=== PATIENT | male | born 1965 | race Caucasian/White ===

== ENCOUNTER 2017-11-13 05:55 | Emergency (ER) | payer OTHER, SELFPAY ==
[2017-11-13 06:03] VITALS: BP 129/97; PULSE 79; RESP 16; TEMP 36.8; O2SAT 97
--- NOTE | 2017-11-13 06:27 | W.ED.GENAD ---
Discharge Plan Disposition Patient Disposition: HOME Condition: Stable Discharge Details Chief Complaint: EyeProblem Clinical Impression: Corneal ulcer of right eye Primary Care Provider: Jay Campos ED Provider: Te Joel Home Meds and New Rx's Prescriptions: No Action No Known Home Meds RF: 0 Discharge Instructions Instructions: Corneal Ulcer (ED) Additional Instructions: Please apply the Gentamycin medication to your eye 6 times per day. Do not put your contact lenses back in. Please see her bender helper this morning. Please call them promptly at 8 AM and state I wear contacts, the ER doctor says I have a corneal ulcer and need to be seen right away. If you notice any worsening of your vision, any worsening pain, please return immediately for reevaluation. Please take Tylenol and Motrin for any pain. If you notice any worsening of your symptoms, or any new symptoms such as vomiting, diarrhea, fever, chills, shortness of breath, chest pain, numbness, weakness, or fainting , please return immediately to the emergency department for reevaluation. Please follow up with your appetite as soon as possible for reassessment and reevaluation. As always, it was a pleasure participating in your medical care today. Referrals: [facility] [OTHER] - Medical Decision Making This is a 52-year-old male who presents with right eye pain. He is a contact lens wearer. Physical exam demonstrates a small ulcer on his right cornea at the 9 o'clock position. No dendritic lesion. No Ochoa sign, no signs of shingles. No signs of rust ring, positive Tripp sign, or foreign body. I feel that he has a corneal ulcer secondary to his contact lens use. The patient does see Dr. ruiz regularly. He has no red flags of diabetes, steroid use, or immunocompromise. We will keep his lenses out, give him gentamicin ointment, and have him follow-up with his bender helper this morning in the next 3-4 hours. We discussed red flags for which to return and the vital importance for close follow-up and the patient understands. I have extensively reviewed the treatment plan and discharge instructions with the patient. I have addressed all patient concerns at this time. The patient was made aware of what symptoms to monitor for that would warrant a return to the emergency department. Discussed the plan with the patient, they demonstrate verbal understanding and agreement with our assessment and plan at this time. HPI General Date/Time Provider Initiated Documentation: 11/13/17 06:24. HPI Narrative: This is a 52-year-old male with no medical problems except for contact lens use who presents today for right eye pain. He states that last night he had some aching and tearing in his eye, this morning when he woke up he was continually worse. It was slightly improved with putting his contact back in. He denies any objects on personal examination, he denies any welding, he does not work with any metal or grinding products. He does not remember any traumatic inciting event. He denies any worsening of his vision. He denies any other complaints at this time. He denies IV or illicit drug use, recent surgeries, or pertinent family history. Related Data Home Medications Medication Instructions Recorded Confirmed Unknown [No Known Home Meds] 03/03/17 11/13/17 Allergies Allergy/AdvReac Type Severity Reaction Status Date / Time silver sulfadiazine Allergy Skin Rash Unverified 11/13/17 06:11 General Stated Complaint: EyeProblem DUDLEY: 4 Review of Systems Review of Systems All systems reviewed & are unremarkable except as noted in HPI and below PFSH Social History Smoking/Tobacco Use Status: Current every day Exam Narrative Exam Narrative: 1.Const: Well-nourished, Well-developed, appearing stated age 2.Eyes: PERRL, notable conjunctival injection on the right eye 3.ENT: Atraumatic external nose and ears. Moist MM. Neck: Symmetric, trachea midline, No thyromegaly. EOMI, PERRL, Peripheral vision intact. No nystagmus. No external signs of preseptal cellulitis, no redness around the eye, no proptosis. No hyphema, no signs of trauma around the eye, no periorbital emphysema. Patient demonstrates notable conjunctival injection on the right eye. Vision is 20/30 in his right eye and left eye with contact lenses. Patient describes horrible vision in both eyes without contacts. Fluorescein staining does demonstrate evidence of corneal ulcer at the 9 o'clock position on his right eye. It is small. No dendritic lesion. No evidence of foreign body, or rust ring. Eversion of the lid demonstrates no signs of foreign body. Negative Tripp sign. No haziness on the cornea. 4.CVS: +S1/S2, No murmurs or gallops. Peripheral pulses 2+ and equal in all extremities. Brisk capillary refill in all extremities. 5.RESP: Unlabored respiratory effort. Clear to auscultation bilaterally. 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 Sensation grossly intact, no focal neurologic deficits. Course Vital Signs Temperature 36.8 C 11/13/17 06:03 Pulse 79 11/13/17 06:03 Respiratory Rate 16 11/13/17 06:03 Blood Pressure 129/97 H 11/13/17 06:03 Pulse Oximetry 97 11/13/17 06:03 Temperature 36.8 C 11/13/17 06:03 Temperature Source Temporal Artery Scan 11/13/17 06:03 Pulse 79 11/13/17 06:03 Respiratory Rate 16 11/13/17 06:03 Respiratory Effort 11/13/17 06:03 Blood Pressure 129/97 H 11/13/17 06:03 Pulse Oximetry 97 11/13/17 06:03 Oxygen Delivery Method Room Air 11/13/17 06:03 Oxygen Flow Rate 0 11/13/17 06:03 Pain Level 0 11/13/17 06:03
--- NOTE | 2017-11-13 06:37 | ED.GENADUL_ITS ---
Discharge Plan Disposition Patient Disposition: HOME Condition: Stable Discharge Details Chief Complaint: EyeProblem Clinical Impression: Corneal ulcer of right eye Primary Care Provider: Jay Campos ED Provider: Te Joel Home Meds and New Rx's Prescriptions: No Action No Known Home Meds RF: 0 Discharge Instructions Instructions: Corneal Ulcer (ED) Additional Instructions: Please apply the Gentamycin medication to your eye 6 times per day. Do not put your contact lenses back in. Please see her computer systems manager this morning. Please call them promptly at 8 AM and state I wear contacts, the ER doctor says I have a corneal ulcer and need to be seen right away. If you notice any worsening of your vision, any worsening pain, please return immediately for reevaluation. Please take Tylenol and Motrin for any pain. If you notice any worsening of your symptoms, or any new symptoms such as vomiting, diarrhea, fever, chills, shortness of breath, chest pain, numbness, weakness, or fainting , please return immediately to the emergency department for reevaluation. Please follow up with your appetite as soon as possible for reassessment and reevaluation. As always, it was a pleasure participating in your medical care today. Referrals: [facility] [[facility]] - Medical Decision Making This is a 52-year-old male who presents with right eye pain. He is a contact lens wearer. Physical exam demonstrates a small ulcer on his right cornea at the 9 o'clock position. No dendritic lesion. No Ochoa sign, no signs of shingles. No signs of rust ring, positive Tripp sign, or foreign body. I feel that he has a corneal ulcer secondary to his contact lens use. The patient does see Dr. ruiz regularly. He has no red flags of diabetes, steroid use, or immunocompromise. We will keep his lenses out, give him gentamicin ointment, and have him follow-up with his computer systems manager this morning in the next 3-4 hours. We discussed red flags for which to return and the vital importance for close follow-up and the patient understands. I have extensively reviewed the treatment plan and discharge instructions with the patient. I have addressed all patient concerns at this time. The patient was made aware of what symptoms to monitor for that would warrant a return to the emergency department. Discussed the plan with the patient, they demonstrate verbal understanding and agreement with our assessment and plan at this time. HPI General Date/Time Provider Initiated Documentation: 11/13/17 06:24 . HPI Narrative: This is a 52-year-old male with no medical problems except for contact lens use who presents today for right eye pain. He states that last night he had some aching and tearing in his eye, this morning when he woke up he was continually worse. It was slightly improved with putting his contact back in. He denies any objects on personal examination, he denies any welding, he does not work with any metal or grinding products. He does not remember any traumatic inciting event. He denies any worsening of his vision. He denies any other complaints at this time. He denies IV or illicit drug use, recent surgeries, or pertinent family history. Related Data Home Medications Medication Instructions Recorded Confirmed Unknown [No Known Home Meds] 03/03/17 11/13/17 Allergies Allergy/AdvReac Type Severity Reaction Status Date / Time silver sulfadiazine Allergy Skin Rash Unverified 11/13/17 06:11 General Stated Complaint: EyeProblem DUDLEY: 4 Review of Systems Review of Systems All systems reviewed & are unremarkable except as noted in HPI and below PFSH Social History Smoking/Tobacco Use Status: Current every day Exam Narrative Exam Narrative: 1.Const: Well-nourished, Well-developed, appearing stated age 2.Eyes: PERRL, notable conjunctival injection on the right eye 3.ENT: Atraumatic external nose and ears. Moist MM. Neck: Symmetric, trachea midline, No thyromegaly. EOMI, PERRL, Peripheral vision intact. No nystagmus. No external signs of preseptal cellulitis, no redness around the eye, no proptosis. No hyphema, no signs of trauma around the eye, no periorbital emphysema. Patient demonstrates notable conjunctival injection on the right eye. Vision is 20/30 in his right eye and left eye with contact lenses. Patient describes horrible vision in both eyes without contacts. Fluorescein staining does demonstrate evidence of corneal ulcer at the 9 o'clock position on his right eye. It is small. No dendritic lesion. No evidence of foreign body, or rust ring. Eversion of the lid demonstrates no signs of foreign body. Negative Tripp sign. No haziness on the cornea. 4.CVS: +S1/S2, No murmurs or gallops. Peripheral pulses 2+ and equal in all extremities. Brisk capillary refill in all extremities. 5.RESP: Unlabored respiratory effort. Clear to auscultation bilaterally. No wheezes rales or rhonchi Neuro: assistant editor II-XII grossly intact. Sensation grossly intact, no focal neurologic deficits. Course Vital Signs Temperature 36.8 C 11/13/17 06:03 Pulse 79 11/13/17 06:03 Respiratory Rate 16 11/13/17 06:03 Blood Pressure 129/97 H 11/13/17 06:03 Pulse Oximetry 97 11/13/17 06:03 Temperature 36.8 C 11/13/17 06:03 Temperature Source Temporal Artery Scan 11/13/17 06:03 Pulse 79 11/13/17 06:03 Respiratory Rate 16 11/13/17 06:03 Respiratory Effort 11/13/17 06:03 Blood Pressure 129/97 H 11/13/17 06:03 Pulse Oximetry 97 11/13/17 06:03 Oxygen Delivery Method Room Air 11/13/17 06:03 Oxygen Flow Rate 0 11/13/17 06:03 Pain Level 0 11/13/17 06:03
--- NOTE | 2017-11-13 08:58 | CMPROGNOTE_ITS ---
Care Management Progress Note 11/13/17-Pt seen today for Right eye Cornea ulcer by Dr. Avelino Joel. Referral and notes faxed to [facility]. Pt has an appt. this morning at 9: 40am.
== END 2017-11-13 06:59 | disposition home or self-care (01) ==
PROVIDERS: Emergency Provider Student in an Organized Health Care Education/Training Program; PCP Specialist/Technologist Athletic Trainer
DX: H16.001 Unspecified corneal ulcer, right eye (principal); H18.821 Corneal disorder due to contact lens, right eye
CPT/HCPCS: 99283

== ENCOUNTER 2018-04-28 00:56 | Outpatient (CLI) | payer OTHER, SELFPAY ==
[2018-04-28 14:45] LABS: CREATININE 0.93 mg/dL (0.70-1.30)
--- NOTE | 2018-04-28 15:30 | DI.CT_ITS ---
SYMPTOM/DIAGNOSIS: HEAD AND NECK METASTASIS, ASSESS FOR DISEASE RECURRENCE C76.0 CT NECK: CT scan of the neck was performed following the uneventful administration of intravenous contrast material. Comparison examinations are 07/12/15, 02/11/17 and 07/14/17. There is no evidence of a residual or recurrent mass in the left posterior triangle. The orbits and retro-orbital soft tissues are unremarkable. Mucous retention cysts or polyps are seen in the maxillary sinuses. The remaining visualized paranasal sinuses are clear. The parotid and submandibular glands are unremarkable. The oral pharynx, hypopharynx, nasopharynx and larynx are unremarkable. The thyroid gland is unremarkable. No significant cervical adenopathy is present. Degenerative changes are seen in the spine particularly at the C4-5 and C5-6 levels. IMPRESSION: No evidence of residual or recurrent neck mass. No significant cervical adenopathy
--- NOTE | 2018-04-28 15:30 | DI.CT_ITS ---
SYMPTOM/DIAGNOSIS: HEAD & NECK CA, ASSESS FOR DISEASE C76.0 CT CHEST: CT scan of the chest was performed following the uneventful administration of intravenous contrast material. Comparison is 07/14/17. The visualized thyroid gland is unremarkable. The thoracic aorta is of normal caliber. Heart size is within normal limits. No significant pericardial effusion seen. Mild coronary artery calcifications are present. No significant thoracic adenopathy or pleural effusion is seen. No pneumothorax is identified. No pulmonary nodules are seen. Dependent atelectatic changes are seen. No focal consolidating infiltrates are seen in the lungs. The tracheobronchial tree is unremarkable. Degenerative changes are seen in the spine. No aggressive osseous lesions are seen. IMPRESSION: No evidence of thoracic metastatic disease.
[2018-04-28] MEDS: Omnipaque 350 MG/ML 100 ML BTL IJ (15:39)
== END 2018-04-28 01:16 ==
PROVIDERS: PCP Specialist/Technologist Athletic Trainer; Visit Provider Nurse Practitioner
DX: R22.1 Localized swelling, mass and lump, neck (principal); C76.0 Malignant neoplasm of head, face and neck; Z12.89 Encounter for screening for malignant neoplasm of other sites
CPT/HCPCS: 70491; 71260; 82565; J3490

== ENCOUNTER 2018-06-14 06:04 | Emergency (ER) | payer OTHER, SELFPAY ==
[2018-06-14 06:14] VITALS: BP 127/82; PULSE 82; RESP 20; TEMP 37; O2SAT 98
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
--- NOTE | 2018-06-14 11:10 | NUR.NOTE ---
Addendum entered by Huyen Herrera 06/14/18 16:22: Patient did call back around 1215 and he is going to contact the PCP that he wants to go to, not the one on for telephone call for the ED. If he need assistance he will call back. Huyen Herrera. Original Note: Nursing Note: Called and left a message with patient that if he needed help with an appt. to call the ED. Huyen Herrera.
== END 2018-06-14 06:45 | disposition home or self-care (01) ==
LOC: ER 06:45
PROVIDERS: Emergency Provider Physician Assistant; PCP Specialist/Technologist Athletic Trainer
DX: M77.8 Other enthesopathies, not elsewhere classified (principal); M67.431 Ganglion, right wrist; R60.0 Localized edema
CPT/HCPCS: 29125; 99283; L3908

== ENCOUNTER 2018-07-21 14:03 | Outpatient (CLI) | payer OTHER, SELFPAY ==
--- NOTE | 2018-07-21 13:57 | DI.RAD_ITS ---
SYMPTOMS/DIAGNOSIS: RIGHT WRIST PAIN AND CYST RIGHT WRIST: Three views. No priors. No acute fracture or dislocation is seen. There is marked narrowing of the radiocarpal joint with subchondral sclerosis and spurring present. There is a tiny osseous density interposed between the lunate and scaphoid, which may represent an old fracture fragment. The site of origin is indeterminate. There are also mild degenerative changes seen at the articulation between the scaphoid and the trapezium and the 1st carpometacarpal joint. No suspicious lytic or sclerotic lesions are seen. On the lateral view, there is a well-corticated osseous density at the dorsum of the wrist suggesting old injury. IMPRESSION: Chronic changes seen of the right wrist, particularly at the radiocarpal joint. If further characterization of the right wrist is needed, a CT scan may be considered for further evaluation.
== END 2018-07-21 14:23 ==
PROVIDERS: PCP Specialist/Technologist Athletic Trainer; Visit Provider Student in an Organized Health Care Education/Training Program
DX: M25.531 Pain in right wrist (principal); M24.831 Other specific joint derangements of right wrist, not elsewhere classified
CPT/HCPCS: 73110

== ENCOUNTER 2018-12-01 14:14 | Outpatient (CLI) | payer OTHER, SELFPAY ==
[2018-12-01 15:54] LABS: CREATININE 0.89 mg/dL (0.70-1.30)
== END 2018-12-01 14:34 ==
PROVIDERS: PCP Specialist/Technologist Athletic Trainer; Visit Provider Nurse Practitioner
DX: R22.1 Localized swelling, mass and lump, neck (principal); Z91.89 Other specified personal risk factors, not elsewhere classified
CPT/HCPCS: 36415; 82565; 84443

== ENCOUNTER 2018-12-02 00:19 | Outpatient (CLI) | payer OTHER, SELFPAY ==
--- NOTE | 2018-12-02 14:10 | DI.CT_ITS ---
EXAM: CT NECK CHEST W CLINICAL HISTORY: SKIN CANCER WITH METS TO NECK,TREATED WITH RADIATION TECHNIQUE: Post IV contrast. COMPARISON: NECK AND CHEST WITH CONTRAST from 07/14/2017 CT neck w from 04/28/2018 FINDINGS: Neck CT: Postsurgical changes are noted on the left side of the neck. There is no evidence of of a current ma ss or adenopathy. The parotid, submandibular and thyroid glands are unremarkable. A mucous retentio n cyst is noted the floor of the right maxillary sinus. The orbits are unremarkable. The visualized portions of brain are grossly normal. Degenerative changes seen in the spine. No suspicious bony l esions are identified. There is no evidence of significant vascular stenosis. Impression: Postsurgical changes on the left side of the neck. No evidence of recurrent mass or chichi opathy. Chest CT: The lungs are clear. No pulmonary nodules, infiltrates or effusions are seen. The heart size is nor mal. No adenopathy is seen. There is mild bilateral symmetric gynecomastia. The visualized portion s of the upper abdominal organs are unremarkable. No suspicious bony lesions are seen. Impression: No evidence of metastatic disease in the chest. IMPRESSION:
[2018-12-02] MEDS: Omnipaque 350 MG/ML 100 ML BTL IJ (14:46)
== END 2018-12-02 00:39 ==
PROVIDERS: PCP Specialist/Technologist Athletic Trainer; Visit Provider Nurse Practitioner
DX: C44.42 Squamous cell carcinoma of skin of scalp and neck (principal); C76.0 Malignant neoplasm of head, face and neck; Z92.3 Personal history of irradiation; J34.1 Cyst and mucocele of nose and nasal sinus
CPT/HCPCS: 70491; 71260; J3490

== ENCOUNTER 2021-06-13 12:23 | Outpatient (REF) | payer OTHER, SELFPAY ==
[2021-06-14 11:39] LABS: COVID-19 RT-PCR UVMMC Result Negative (Negative)
== END 2021-06-13 12:24 | disposition home or self-care (01) ==
LOC: NCHCN 12:23
PROVIDERS: PCP Specialist/Technologist Athletic Trainer; Visit Provider Physician Assistant Medical
DX: Z20.822 Contact with and (suspected) exposure to COVID-19 (principal); J02.9 Acute pharyngitis, unspecified
CPT/HCPCS: U0003; 87070

== ENCOUNTER 2021-08-09 06:07 | Inpatient (IN) | payer SELFPAY ==
[2021-08-09] VITALS (7 sets, daily range): BP systolic 121–144; BP diastolic 79–90; PULSE 63–105; RESP 14–20; TEMP 36.4–37.6; O2SAT 93–98
--- NOTE | 2021-08-09 06:30 | RT.EKG_ITS ---
APPROVED REPORT Exam: Resting ECG Reason for Exam: possible syncope Patient Location: E HR:80 bpm ECG Measurements Heart Rate 80 AXIS MI 120 P 69 QRSd 85 QRS -6 QT 392 T 33 QTc 453 Conclusion Sinus rhythm...normal P axis, V-rate 60- 99
--- NOTE | 2021-08-09 06:32 | ED.GENADUL_ITS ---
Discharge Plan Disposition Patient Disposition: STILL A PATIENT Condition: Stable Discharge Details Chief Complaint: GenMedical Clinical Impression: Heroin use, Fall, Syncope Primary Care Provider: Jay Campos ED Provider: Ricardo Kay Medical Decision Making 56 yo male with hx of substance abuse who was on suboxone but has decided to come off of it and to deal with side effects of this use heroin intermittently comes in after he was found in his shower not responding. He is confused on some of the details on this morning, is currently oriented to person place and time with clear speech and clinically sober. HE states he woke up he thinks around 4am and used heroin. He then went into the shower and this is where his friend found him. He slowly came to and was brought here. He states he thinks his right arm was numb for a few seconds when he woke up, then couldn't remember if it was his right or left arm. He denies having weakness, chest pain, changes in speech, and denies alcohol or drug use. He is in no distress on exam. His pupils are pinpoint. No signs of trauma to the head or c spine tenderness. No chest, back or abdomen tenderness. He has no focal deficits and NIH on exam now is 0. Suspect this was heroin overdose but will evaluate for possible cardiac causes for syncope with ekg and troponin. Has no hypoxia, tachycardia or evidence of dvt on exam so doubt PE and no tearing back pain and normal peripheral pulses so doubt dissection. Unclear etiology of his brief numbness in his arm, suspect this could have been from laying on his arm in the shower, less likely tia and no deficits on exam so doubt cva. Given he fell in the shower will obtain ct head pt signed out to oncoming provider pending lab results, delta troponin and ct head. If negative can likely be discharged home and f/u with pcp. Differential Diagnosis Differential Diagnosis: drug overdose, syncope, tia HPI General Mode of arrival: ambulatory . Date/Time Provider Initiated Documentation: 08/09/21 06:08 . Limitations to Documentation: no limitations . Information obtained by: patient . History of Present Illness 56 year old M presents to the emergency department with the chief complaint of woke up in shower, described as moderate, Patient started experiencing this hour(s) (2) and it has been now resolved. No relieving factors improve symptom(s), No exacerbating factors reported . Patient notes denies chest pain and fever/chills. Patient did receive the following treatments prior to arrival, none Related Data Allergies Allergy/AdvReac Type Severity Reaction Status Date / Time silver sulfadiazine Allergy Skin Rash Unverified 08/09/21 06:24 General Stated Complaint: GenMedical DUDLEY: 3 Review of Systems All systems reviewed & are unremarkable except as noted in HPI and below Constitutional Constitutional: Denies chills, Denies fever(s) and Denies weakness Cardiovascular Cardiovascular: Denies chest pain and Denies dyspnea Respiratory Respiratory: Denies cough and Denies dyspnea Gastrointestinal Gastrointestinal: Denies abdominal pain, Denies nausea and Denies vomiting Integumentary/Breasts Skin/Breast: Denies rash Neurologic Neurologic: Denies weakness Psychiatric Psychiatric: Denies depression PFSH All Active Problems (Updated 08/09/21 @ 06:40 by Ricardo Kay MD) Heroin use (Acute) Fall (Acute) Syncope (Chronic) 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) Medical History (Updated 08/09/21 @ 06:40 by Ricardo Kay MD) Squamous cell carcinoma Surgical History (Updated 06/14/18 @ 06:40 by Teressa New DO) S/P skin cancer resection Neck Social History Smoking/Tobacco Use Status: Current every day Smoking risk assessment performed?: Yes Alcohol Intake: current Alcohol Intake frequency: a few times a week Alcohol type: beer Drug use: Daily Substance use type: marijuana and heroin Current gender identity: male Do you feel safe at home: Yes Do you feel safe in your relationship?: Yes Exam Const General: no acute distress Orientation: alert [facility] Head: normal to inspection Ears: external ears normal General nose exam: external nose normal Mouth: moist mucous membranes Eyes Pupils: pinpoint Neck Neck: normal visual inspection Resp Effort & Inspection: normal respiratory effort and able to speak in complete sentences Cardio Rate: regular rate Skin General skin exam: no rashes or lesions noted Neuro General: patient alert and patient oriented x3 Extrem General: normal to inspection Psych Mental Status: mental status grossly normal Course Vital Signs Vital signs: Vital Signs Temperature 36.5 C 08/09/21 06:13 Pulse 105 H 08/09/21 06:13 Respiratory Rate 20 08/09/21 06:13 Blood Pressure 132/86 08/09/21 06:13 Pulse Oximetry 93 08/09/21 06:13 Temperature 36.5 C 08/09/21 06:13 Temperature Source Oral 08/09/21 06:13 Pulse 105 H 08/09/21 06:13 Respiratory Rate 20 08/09/21 06:13 Respiratory Effort 08/09/21 06:23 Blood Pressure 132/86 08/09/21 06:13 Blood Pressure Position Sitting 08/09/21 06:13 Pulse Oximetry 93 08/09/21 06:13 Oxygen Delivery Method Room Air 08/09/21 06:13 Oxygen Flow Rate 0 08/09/21 06:13 Pain Level 0 08/09/21 06:13 PAWSS Have you Been Recently Intoxicated or Drunk Within the Last 30 days?: No Have you Ever Experienced Previous Episodes of Alcohol Withdrawal?: No Have you ever Experienced Withdrawal Seizures?: No Have you ever Experienced Delirium Tremens(DT)s?: No Have you ever undergone Alcohol Rehabilitation Treatment (i.e, inpt ot outpatient treatment programs)?: No Have you ever Experienced Blackouts?: No Have you ever Combined Alcohol with other Downers within the last 90 days?: No Have you ever Combined Alcohol with any other Substance of Abuse during the last 90 days?: No Positive Blood Alcohol level on Presentation? [PCS.BAL]: No Evidence of Increased Autonomic Activity (i.e. HR>120, tremor, sweating, agitation, nausea)?: No Result: 0
[2021-08-09 07:11] LABS: Abs Immature Grans 0.04 10^3/uL (0.0-0.06); Absolute Basophil Count 0.04 10^3/uL (0.0-0.2); Absolute Eosinophil Count 0.16 10^3/uL (0.0-0.7); Absolute Lymphocyte Count 1.61 10^3/uL (1.2-3.4); Absolute Monocyte Count 0.55 10^3/uL (0.1-0.8); Absolute Neutrophil Count 7.44 10^3/uL (1.2-6.7); Basophils % 0.4; Eosinophils % 1.6; HGB 15.8 g/dL (13.5-17.5); Immature Grans % 0.4; Lymphocytes % 16.4; MCH 32.6 pg (27.0-33.0); MCHC 32.9 % (32.0-36.0); MCV 99 fL (80-95); MPV 8.6 fL (8.0-11.0); Monocytes % 5.6; Neutrophils % 75.6; Platelet Count 388 10^3/uL (130-400); RBC 4.84 10^6/uL (4.36-5.78); RDW 11.8 % (11.8-14.1); RDW-SD 43.6 fL; WBC 9.84 10^3/uL (4.4-10.8)
--- NOTE | 2021-08-09 07:28 | DI.CT_ITS ---
Exam(s) CT HEAD WO EXAM: CT HEAD WO CLINICAL HISTORY: fall. TECHNIQUE: Imaging Protocol: Axial computed tomography images with coronal and sagittal reformatted images were created and reviewed COMPARISON: No exams were available for comparison FINDINGS: Ventricles and Extra axial spaces: Normal in size and morphology for the patient's age. Hemorrhage: None. Cerebral parenchyma: There is no evidence of an acute territorial infarct. There is an area of encep halomalacia involving the posterior right parietal lobe suggesting a prior infarct. There are areas of decreased signal in the white matter likely reflecting small vessel ischemic disease. Midline shift: None. Brainstem/Cerebellum: Normal. Calvarium: Normal. Visualized Paranasal sinuses/Mastoids: Mucous retention cysts or polyps are seen in the maxillary sin uses. The visualized paranasal sinuses are otherwise clear. Soft Tissues: Unremarkable. IMPRESSION: No acute intracranial process. RADIATION DOSE DELIVERED: 722.31mGy.cm Total DLP DATA REPOSITORY: All CT scans at this facility are submitted to the National Radiology Data Registry (NRDR) Dose Index Registry (DIR) with the [employer] (ACR). RADIATION OPTIMIZATION: All CT scans at this facility use at least one of these dose optimization te chniques: automated exposure control; mA and/or kV adjustment per patient size (includes targeted exa ms where dose is matched to clinical indication); or iterative reconstruction.
[2021-08-09 07:38] LABS: ALT 112 U/L (16-63); AST 69 U/L (15-37); Alkaline Phosphatase 95 U/L (46-116); Anion Gap 9.9 mmol/L (3-11); BUN 12 mg/dL (7-18); Bilirubin, Total 0.7 mg/dL (0.2-1.0); CO2 25.1 mmol/L (21.0-32.0); CREATININE 1.3 mg/dL (0.70-1.30); Calcium 9.5 mg/dL (8.5-10.1); Chloride 104 mmol/L (98-107); Glucose 126 mg/dL (74-106); Magnesium 2.2 mg/dL (1.8-2.4); Potassium 4.1 mmol/L (3.5-5.1); Sodium 139 mmol/L (136-145); Total Protein 8.6 g/dL (6.4-8.2); Troponin I < 50 ng/L (<or=60)
[2021-08-09 07:48] LABS: ETHANOL BLOOD < 3.0 mg/dL (<10)
--- NOTE | 2021-08-09 07:52 | DI.VRAD_ITS ---
PROCEDURE INFORMATION: Exam: CT Head Without Contrast Exam date and time: 08/09/2021 7:24 AM Age: 56 years old Clinical indication: Stroke-like symptoms TECHNIQUE: Imaging protocol: Computed tomography of the head without contrast. Radiation optimization: All CT scans at this facility use at least one of these dose optimization techniques: automated exposure control; mA and/or kV adjustment per patient size (includes targeted exams where dose is matched to clinical indication); or iterative reconstruction. Other technique: STROKE PROTOCOL was implemented. COMPARISON: CT NECK CHEST W 12/02/2018 2:18 PM FINDINGS: Brain: Chronic right parietal infarction No hemorrhage. Mild white matter disease. No mass effect. Cerebral ventricles: No ventriculomegaly. Paranasal sinuses: Polypoid tissue/mucosal thickening in the maxillary sinuses. No fluid levels. Mastoid air cells: Visualized mastoid air cells are well aerated. Bones/joints: Unremarkable. No acute fracture. Soft tissues: Unremarkable. IMPRESSION: No acute intracranial abnormality. Chronic findings as noted ASSESSMENT: ASPECTS ([place] Stroke Program Early CT Score) is 10. Dictated and Authenticated by: Trent Loomis MD. Ordering:EPI Silva MD
--- NOTE | 2021-08-09 08:00 | DI.MRI_ITS ---
Exam(s) MR BRAIN WO EXAM: MR BRAIN WO CLINICAL HISTORY: R arm weakness, r/o cva TECHNIQUE: Multiplanar multisequence MRI of the brain was performed. COMPARISON: CT CT HEAD WO from 08/09/2021 FINDINGS: VENTRICLES AND EXTRA AXIAL SPACES: Normal in size and morphology for the patient's age. MIDLINE SHIFT: None. CEREBRAL PARENCHYMA: There are areas of restricted diffusion seen in the left occipital lobe posterio rly in the left caudate nucleus and the left parietal lobe consistent with acute/subacute infarct. N o space-occupying lesion identified. There is there is an old posterior right parietal infarct. There are scattered areas of hyperintense signal seen in the white matter on the T2 weighted images. These likely reflect small vessel ischemic disease. HEMORRHAGE: None. BRAINSTEM/CEREBELLUM: Normal. CALVARIUM: Normal. VISUALIZED PARANASAL SINUSES/MASTOIDS:Mucous retention cysts or polyps are seen in the maxillary sinu ses. There also is mucosal thickening in the maxillary sinuses. The remaining visualized paranasal si nuses are clear. [place]: Normal flow void. PITUITARY GLAND: Unremarkable. OTHER FINDINGS: None. IMPRESSION: 1. Foci of restricted diffusion in the left occipital lobe, left caudate lobe in the left parietal lo be consistent with acute/subacute infarct. 2. 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 3. Findings of chronic sinus disease. 4. Results of this exam have been verbally communicated with provider. DATA REPOSITORY:
--- NOTE | 2021-08-09 08:07 | ED.PROG_ITS ---
Date of service: 08/09/21 Time of Service: 07:30 Medical Decision Making 0730 -- Please see Dr. Kay's note for initial presentation, exam, and plan. Case endorsed to f/u on labs and imaging and final disposition. 0800 --labs and imaging reviewed. Normal white blood cell count. Normal electrolytes. Slight elevation of transaminases. Troponin negative. UDS positive for THC. Alcohol level negative. CT head notes a chronic right parietal infarction but no acute findings. Results discussed with patient and he was unaware of previous stroke. 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 Patient states he is trying to get off Suboxone and last use 7 days ago. He states he snorted heroin this morning and the next thing he remembers is laying on the shower floor. He states he noted the left arm numbness and weakness after that. His girlfriend states she heard a thump patient denies any known injury or pain at this time. He denies headache, blurry vision, chest pain, shortness of breath, abdominal pain, vomiting, diarrhea or fever. He is fully vaccinated for COVID including a booster. Differential diagnosis includes near syncopal or syncopal episode in the setting of drug use, dehydration, orthostatic hypotension, electrolyte abnormality, TIA, CVA. He denies any chest pain, shortness of breath and is not tachycardic so PE He has no focal deficits on exam but does still complain of right arm numbness and weakness. Case discussed with radiologist and will refer for MRI brain without contrast. Plan is for delta troponin. Patient is agreeable with plan. 1220 -- Discussed with [facility] neurology --consider endocarditis considering his history of drug use. Patient denies IV drug use. If unable to obtain an echo, recommend blood cultures. Recommend continuing with 81 mg aspirin. Agrees with plan for CTA head and neck. 1320 --CTA head and neck notes: 1. No large vessel occlusion or significant stenosis on the CT angiography of the head.? 2. No acute intracranial process.? 3. Almost 50 percent occlusion of the distal left common carotid artery just proximal to the bifurcation. 4. Occlusion at the origin of the left external carotid artery.? Near complete occlusion at the origin of right external carotid artery. 5. Near complete occlusion of the right internal carotid artery at its origin. 6. Less than 50 percent occlusion at the origin of the left subclavian artery. 7. Results of this exam have been verbally communicated with provider. Case discussed with [facility] neurology who recommend urgent vascular follow-up but no indication for emergent transfer. Recommends Plavix load with 300 mg and to continue dual antiplatelet therapy with aspirin 81 mg and Plavix 75 mg with IV fluid. Dr. Song Howe will call back with vascular surgery follow up information. Case discussed with hospitalist who accepts patient for admission. Medical Records Medical records reviewed: Yes I reviewed the patient's medical records. Imaging Data Radiologic Study: Radiologist's impression: CT Head Without Contrast Exam date and time: 08/09/2021 7:24 AM Age: 56 years old Clinical indication: Stroke-like symptoms TECHNIQUE: Imaging protocol: Computed tomography of the head without contrast. Radiation optimization: All CT scans at this facility use at least one of these dose optimization techniques: automated exposure control; mA and/or kV adjustment per patient size (includes targeted exams where dose is matched to clinical indication); or iterative reconstruction. Other technique: STROKE PROTOCOL was implemented. COMPARISON: CT NECK CHEST W 12/02/2018 2:18 PM FINDINGS: Brain:? Chronic right parietal infarction No hemorrhage.? Mild white matter disease. No mass effect. Cerebral ventricles: No ventriculomegaly. Paranasal sinuses:? Polypoid tissue/mucosal thickening in the maxillary sinuses. ? No fluid levels. Mastoid air cells: Visualized mastoid air cells are well aerated. Bones/joints: Unremarkable. No acute fracture. Soft tissues: Unremarkable. IMPRESSION: No acute intracranial abnormality. Chronic findings as noted. MR BRAIN WO CLINICAL HISTORY:? R arm weakness, r/o cva TECHNIQUE:? Multiplanar multisequence MRI of the brain was performed. COMPARISON:? CT CT HEAD WO from 08/09/2021 FINDINGS: VENTRICLES AND EXTRA AXIAL SPACES: Normal in size and morphology for the patient's age. MIDLINE SHIFT: None. CEREBRAL PARENCHYMA: There are areas of restricted diffusion seen in the left occipital lobe posteriorly in the left caudate nucleus and the left parietal lobe consistent with acute/subacute infarct.? No space-occupying lesion identified. There is there is an old posterior right parietal infarct. There are scattered areas of hyperintense signal seen in the white matter on the T2 weighted images. These likely reflect small vessel ischemic disease. HEMORRHAGE: None. BRAINSTEM/CEREBELLUM: Normal. CALVARIUM: Normal.? VISUALIZED PARANASAL SINUSES/MASTOIDS:Mucous retention cysts or polyps are seen in the maxillary sinuses. There also is mucosal thickening in the maxillary sinuses. The remaining visualized paranasal sinuses are clear. [place]: Normal flow void. PITUITARY GLAND: Unremarkable. OTHER FINDINGS: None. IMPRESSION: 1. Foci of restricted diffusion in the left occipital lobe, left caudate lobe in the left parietal lobe consistent with acute/subacute infarct. 2. 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 3. Findings of chronic sinus disease. 4. Results of this exam have been verbally communicated with provider. XR CHEST 2V PA ? LATERAL CLINICAL HISTORY:? syncope, r/o acute disease TECHNIQUE:? 2D digital imaging was performed of the chest.? Two images were obtained.? PA and lateral views were obtained. COMPARISON:? No exams were available for comparison FINDINGS: MEDIASTINUM: Normal.? HEART: Normal. PULMONARY VASCULATURE: Normal. LUNGS: Clear. ? PLEURAL SPACE: No pleural effusion or pneumothorax. BONE:Within normal limits for the patient's age.? OTHER FINDINGS:Normal.? IMPRESSION: No acute pulmonary findings. CT BRAIN ? NECK CTA CLINICAL HISTORY: ? R arm weakness, L occipital/parietal lobe infarct. ? TECHNIQUE:? Imaging Protocol:? Axial CT angiography was performed with multi- slice acquisition and multi-planar and/or 3D reconstructions. CONTRAST MATERIAL:? Intravenous: Omnipaque 350ml contrast volume:85 mL COMPARISON:? No exams were available for comparison FINDINGS: CT Head w: Ventricles and Extra axial spaces: Normal in size and morphology for the patient's age. Hemorrhage: None. Cerebral parenchyma: There is an old right posterior parietal infarct.? Midline shift: None. Brainstem/Cerebellum: Normal. Calvarium: Normal. Visualized Paranasal sinuses/Mastoids: Mucous retention cysts or polyps are seen in the maxillary sinuses bilaterally.? There is mucosal thickening seen in the right maxillary sinus.? The remaining visualized paranasal sinuses are clear.? Soft Tissues: Unremarkable. Enhancement: Unremarkable.? CTA Neck W: Common Carotid: Right:? No dissection, occlusion or significant stenosis. Left:? There is almost 50 percent occlusion of the distal left common carotid artery just proximal to the bifurcation.? External Carotid: Right:? There is near complete occlusion of the proximal right external carotid artery at its origin.? Left:? There is occlusion of the origin of the left external carotid artery.? Internal Carotid: Right:? There is near complete occlusion of the proximal right internal carotid artery at its origin.? Left:? No dissection, occlusion or significant stenosis. Vertebral Artery: Right:? No dissection, occlusion or significant stenosis. Left:? No dissection, occlusion or significant stenosis. Left subclavian artery: There is thrombus seen at the origin of the left subclavian artery.? Less than 50 percent narrowing of the lumen is noted. Lung Apices: Normal. Bones: Within normal limits for the patient's age. Degenerative changes in the cervical spine. Soft Tissues: Normal. Thyroid gland: Unremarkable. CTA Brain W: Internal Carotid Arteries: Normal.? Anterior Cerebral Arteries: Right:? No aneurysm, occlusion or significant stenosis. Left:? No aneurysm, occlusion or significant stenosis. Middle Cerebral Arteries: Right:? No aneurysm, occlusion or significant stenosis. Left:? No aneurysm, occlusion or significant stenosis. Posterior Cerebral Arteries: Right:? No aneurysm, occlusion or significant stenosis. Left:? No aneurysm, occlusion or significant stenosis. Vertebral Arteries: Right:? No aneurysm, occlusion or significant stenosis. Left:? No aneurysm, occlusion or significant stenosis. Basilar Artery:? No aneurysm, occlusion or significant stenosis. IMPRESSION: 1. No large vessel occlusion or significant stenosis on the CT angiography of the head.? 2. No acute intracranial process.? 3. Almost 50 percent occlusion of the distal left common carotid artery just proximal to the bifurcation. 4. Occlusion at the origin of the left external carotid artery.? Near complete occlusion at the origin of right external carotid artery. 5. Near complete occlusion of the right internal carotid artery at its origin. 6. Less than 50 percent occlusion at the origin of the left subclavian artery. 7. Results of this exam have been verbally communicated with provider. Lab Data Lab results reviewed: Yes I reviewed the patient's lab results. Labs: 08/09/21 13:00 Blood Blood Culture - Pending 08/09/21 12:40 Blood Blood Culture - Pending Laboratory Tests Range/Units 08/09/21 08/09/21 08/09/21 06:45 06:45 07:42 WBC (4.4-10.8) 10^3/uL 9.84 RBC (4.36-5.78) 10^6/uL 4.84 Hgb (13.5-17.5) g/dL 15.8 Hct (40.0-50.0) % 48.0 MCV (80-95) fL 99 H MCH (27.0-33.0) pg 32.6 MCHC (32.0-36.0) % 32.9 RDW (11.8-14.1) % 11.8 Plt Count (130-400) 10^3/uL 388 MPV (8.0-11.0) fL 8.6 Immature Gran % 0.4 Neutrophils % 75.6 Lymphocytes % 16.4 Monocytes % 5.6 Eosinophils % 1.6 Basophils % 0.4 Nucleated RBC % (0.0-0.3) % 0.0 Absolute Neutrophils (1.2-6.7) 10^3/uL 7.44 H Absolute Lymphocytes (1.2-3.4) 10^3/uL 1.61 Absolute Monocytes (0.1-0.8) 10^3/uL 0.55 Absolute Eosinophils (0.0-0.7) 10^3/uL 0.16 Absolute Basophils (0.0-0.2) 10^3/uL 0.04 Sodium (136-145) mmol/L 139 Potassium (3.5-5.1) mmol/L 4.1 Chloride (98-107) mmol/L 104 Carbon Dioxide (21.0-32.0) mmol/L 25.1 Anion Gap (3-11) mmol/L 9.9 BUN (7-18) mg/dL 12 Creatinine (0.70-1.30) mg/dL 1.3 Estimated GFR/1.73 m2 (mL/min/1.73m2) 57.10 Glucose (74-106) mg/dL 126 H Calcium (8.5-10.1) mg/dL 9.5 Magnesium (1.8-2.4) mg/dL 2.2 Total Bilirubin (0.2-1.0) mg/dL 0.7 AST (15-37) U/L 69 H ALT (16-63) U/L 112 H Alkaline Phosphatase (46-116) U/L 95 Creatine Kinase (39-308) U/L Troponin I (<or=60) ng/L < 50 Total Protein (6.4-8.2) g/dL 8.6 H Albumin (3.4-5.0) g/dL 4.0 Urine Opiates Screen (Negative) Negative Urine Methadone Screen (Negative) Negative Ur Barbiturates Screen (Negative) Negative Ur Tricyclics Screen (Negative) Negative Ur Amphetamines Screen (Negative) Negative U Benzodiazepines Scrn (Negative) Negative Urine Cocaine Screen (Negative) Negative Ur THC Screen (Negative) Positive A Ethyl Alcohol (<10) mg/dL < 3.0 COVID-19 Source SARS-CoV-2 (PCR) (Negative) Range/Units 08/09/21 08/09/21 08/09/21 10:08 10:08 11:30 WBC (4.4-10.8) 10^3/uL RBC (4.36-5.78) 10^6/uL Hgb (13.5-17.5) g/dL Hct (40.0-50.0) % MCV (80-95) fL MCH (27.0-33.0) pg MCHC (32.0-36.0) % RDW (11.8-14.1) % Plt Count (130-400) 10^3/uL MPV (8.0-11.0) fL Immature Gran % Neutrophils % Lymphocytes % Monocytes % Eosinophils % Basophils % Nucleated RBC % (0.0-0.3) % Absolute Neutrophils (1.2-6.7) 10^3/uL Absolute Lymphocytes (1.2-3.4) 10^3/uL Absolute Monocytes (0.1-0.8) 10^3/uL Absolute Eosinophils (0.0-0.7) 10^3/uL Absolute Basophils (0.0-0.2) 10^3/uL Sodium (136-145) mmol/L Potassium (3.5-5.1) mmol/L Chloride (98-107) mmol/L Carbon Dioxide (21.0-32.0) mmol/L Anion Gap (3-11) mmol/L BUN (7-18) mg/dL Creatinine (0.70-1.30) mg/dL Estimated GFR/1.73 m2 (mL/min/1.73m2) Glucose (74-106) mg/dL Calcium (8.5-10.1) mg/dL Magnesium (1.8-2.4) mg/dL Total Bilirubin (0.2-1.0) mg/dL AST (15-37) U/L ALT (16-63) U/L Alkaline Phosphatase (46-116) U/L Creatine Kinase (39-308) U/L 97 Troponin I (<or=60) ng/L < 50 Total Protein (6.4-8.2) g/dL Albumin (3.4-5.0) g/dL Urine Opiates Screen (Negative) Urine Methadone Screen (Negative) Ur Barbiturates Screen (Negative) Ur Tricyclics Screen (Negative) Ur Amphetamines Screen (Negative) U Benzodiazepines Scrn (Negative) Urine Cocaine Screen (Negative) Ur THC Screen (Negative) Ethyl Alcohol (<10) mg/dL COVID-19 Source Nasal/Nares SARS-CoV-2 (PCR) (Negative) Negative ECG Data Attestation: I personally reviewed and interpreted this ECG (s) as follows: Interpretation: rate of 80, sinus, no stemi. Sign Out Sign Out Data: Sign Out Comment: used heroin and was found in his shower and slowly came to, transient numbness in his arm (he is not entirely sure which arm it was). Pending labs and ct head, if negative including delta troponin can likely be discharged Last updated by Ricardo Kay MD at 08/09/21 06:41 Discharge Plan Disposition Patient Disposition: [facility] INPATIENT Condition: Stable Discharge Details Clinical Impression: Acute cerebrovascular accident (CVA), Bilateral carotid artery occlusion Admit Date/Time: 08/09/21 13:41 Admit Provider: Kelsey Corral Attending Provider: Kelsey Corral Primary Care Provider: Brinda Brooks ED Provider: Teressa New Discharge Data Discharge Date/Time-TO BE ENTERED AT DEPARTURE: 08/09/21 15:05
[2021-08-09 08:11] LABS: *AMPHETAMINES SCREEN URINE Negative (Negative); *BARBITURATES SCREEN URINE Negative (Negative); *BENZODIAZEPINES SCREEN URINE Negative (Negative); Cannabinoids THC Positive (Negative); Cocaine Screen,Urine Negative (Negative); METHADONE URINE SCREEN Negative (Negative); OPIATES URINE SCREEN Negative (Negative)
[2021-08-09 08:15] LABS: Tricyclic Antidepressants Negative (Negative)
--- NOTE | 2021-08-09 08:15 | DI.RAD_ITS ---
Exam(s) XR CHEST 2V PA LATERAL EXAM: XR CHEST 2V PA LATERAL CLINICAL HISTORY: syncope, r/o acute disease TECHNIQUE: 2D digital imaging was performed of the chest. Two images were obtained. PA and lateral views were obtained. COMPARISON: No exams were available for comparison FINDINGS: MEDIASTINUM: Normal. HEART: Normal. PULMONARY VASCULATURE: Normal. LUNGS: Clear. PLEURAL SPACE: No pleural effusion or pneumothorax. BONE:Within normal limits for the patient's age. OTHER FINDINGS:Normal. IMPRESSION: No acute pulmonary findings. DATA REPOSITORY: RADIATION DOSE DELIVERED:
[2021-08-09 10:29] LABS: Troponin I < 50 ng/L (<or=60)
[2021-08-09] MEDS: Aspirin 325 MG TAB PO (10:30)
--- OUTSIDE RECORDS SUMMARY | 2021-08-09 11:03 | XMS_ITS | Encounter Summary ---
:1965 Author Organization [facility] [place] [address] Care Team Providers Name Role Phone Jay Campos Primary Care Provider Encounter Details Date Type Department Care Team Description 07/07/2019 Telephone Radiation Oncology a t [facility] Mikel Soria [address] [place] [address] [phone] Social History Tobacco Use Types Packs/Day Years Used Date Former Smoker Cigarettes 0.25 15 Quit: 10/30/19 16 Smokeless Tobacco: Current User Chew Comments: trying to quit. Still chews. Alcohol Use Standard Drinks/Week Comments Yes 7 (1 standard drink = 0.6 oz pure alcoho l) 1 beer with supper Alcohol Habits Answer Date Recorded How often do you have a drink containing alcohol? Not asked How many drinks containing alcohol do you have on a Not aske d typical day when you are drinking? How often do you have six or more drinks on one Not asked occasion? Comment: 1 beer with supper 08/13/2015 Sex Assigned at Date Recorded Not on file documented as of this encounter Plan of Treatment Upcoming Encounters Date Type Specialty Care Team Description 08/09/2021 Ancillary Procedure Radiology Paige Pérez MD Arrived [facility] NEUROLOGY DEPT [place], [place] [address] (Wo rk) documented as of this encounter Visit Diagnoses Not on filedocumented in this encounter Care Teams Civil Laboratory Technician Relationship Specialty Start Date End Date Jay Campos PA PCP - General General Internal Medicine 07/02/15 08/20/20 [address] [place] [address] documented as of this encounter
--- OUTSIDE RECORDS SUMMARY | 2021-08-09 11:03 | XMS_ITS | Clinical Summary ---
:1965 Author Organization [facility] [place] [address] Care Team Providers Name Role Phone Unknown Primary Care Provider Unavailable Allergies Active Allergy Reactions Severity Noted Date Comments Silver Sulfadiazine Itching, Rash 01/30/2016 Medications Medication Sig Dispensed Refills Start Date End Date Status ciprofloxacin-dexametha Place 5 drops 10 mL 1 09/30/2018 Active sone (CIPRODEX) 0.3-0.1 into the left ear % Drops, Suspension 2 times daily. 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 of goldy ngles 50 Hyperlipidemia Mother Hypertension Mother Relation Status Comments Father Quadriplegic, Trauma tic Brain injury Mother Social History Tobacco Use Types Packs/Day Years Used Date Former Smoker Cigarettes 0.25 15 Quit: 10/30/19 16 Smokeless Tobacco: Current User Chew Tobacco Cessation: Ready to Quit: No Comments: trying to quit. Still chews. Alcohol [...] Assigned at Date Recorded Not on file Last Filed Vital Signs Vital Sign Reading Time Taken Comments Blood Pressure 141/85 04/22/2018 2:40 PM EST Pulse 88 04/22/2018 2:40 PM EST Temperature 36.8 ??C (98.2 ??F) 04/22/2018 2:40 PM EST Respiratory Rate 18 04/22/2018 2:40 PM EST Oxygen Saturation 97% 04/22/2018 2:40 PM EST Inhaled Oxygen Concentration - - Weight 71.7 kg (158 lb) 09/30/2018 3:31 PM EDT Height 167.6 cm (5' 6) 09/30/2018 3:31 PM EDT Body Mass Index 25.5 09/30/2018 3:31 PM EDT Plan of Treatment Upcoming Encounters Date Type Specialty Care Team Description 08/09/2021 Ancillary Procedure Radiology Paige Pérez MD [facility]rived [facility] [place], [place] [address] (Wo rk) Health Maintenance Due Date Last Done Comments Covid-19 Vaccine (#1) 1970 Pneumococcal Vaccine: At-Risk 5-64yrs (1 - PCV) 1971 HIV screen 1983 Hepatitis C Screening 1983 Lipid Screening 1983 Tdap adult 02/10/1984 Tetanus vaccine 02/10/1984 Diabetes Screening (HgbA1C or Glucose) 2005 Colonoscopy 2010 Zoster vaccine (1 of 2) 2015 Advance Directive 02/10/2020 Influenza (Flu) vaccine (1 of 1 - Influenza standard 10/17/2020 series) Procedures Procedure Name Priority Date/Time Associated Diagnosis Comme nts FILM LIBRARY Routine 08/09/2021 10:53 AM Results for this STORAGE ONLY DX EDT procedure ar e in CHEST the results section. FILM LIBRARY Routine 08/09/2021 10:52 AM Results for this STORAGE ONLY MR EDT procedure ar e in HEAD the results section. FILM LIBRARY Routine 08/09/2021 10:51 AM Results for this STORAGE ONLY CT EDT procedure ar e in HEAD the results section. from Last 3 Months Results Film Library- Storage Only DX Chest (08/09/2021 10:53 AM EDT) Specimen (Source) Anatomical Location Collection Method / Collectio n Time Received Time / Laterality Volume Narrative [facility] - 08/09/2021 10:53 AM EDT This exam is auto-finalizing. It's purpo se is for storage only. Paige Pérez MD [facility] [place] LIBRARY ORDERABLES Performing Organization Address [facility] Phon e Number RAD [place], [place] Film Library- Storage Only MR Head (08/09/2021 10:52 AM EDT) Specimen (Source) Anatomical Location Collection Method / Collectio n Time Received Time / Laterality Volume Narrative [facility] - 08/09/2021 10:52 AM EDT This exam is auto-finalizing. It's purpo se is for storage only. Paige Pérez MD [facility] [place]M LIBRARY ORDERABLES Performing Organization Address [facility] Phon e Number [place], [place] Film Library- Storage Only CT Head (08/09/2021 10:51 AM EDT) Specimen (Source) Anatomical Location Collection Method / Collectio n Time Received Time / Laterality Volume Narrative [facility] - 08/09/2021 10:51 AM EDT This exam is auto-finalizing. It's purpo se is for storage only. Paige Pérez MD [facility] FILM LIBRARY ORDERABLES Performing Organization Address [facility] Phon e Number [place], [place] from Last 3 Months Insurance Payer Benefit Plan / Subscriber ID Effective Dates Phone Addre ss Type Group [employer] [place] [id number] 2015-Prese [phone] [id number] [facility] [id number] Advance Directives Latest Code Status on File Code Status Date Activated Date Inactivated Comments Full Code 07/20/2015 2:07 PM 07/20/2015 9:18 PM Does patient have capacity to make decision: Yes Care Teams Broadband Engineer Relationship Specialty Start Date End Date Unknown PCP - General 08/21/20 None
--- OUTSIDE RECORDS SUMMARY | 2021-08-09 11:03 | XMS_ITS | Encounter Summary ---
:1965 Author Organization [facility] [place] [address] Care Team Providers Name Role Phone Jay Campos Primary Care Provider Encounter Details Date Type Department Care Team Description 08/11/2019 Telephone [address] On[address] [facility] Annie Dotson [address] [place] [address] [phone] Social History Tobacco Use Types [...] on file documented as of this encounter Miscellaneous Notes Telephone Encounter - Annie Dotson - 08/11/2019 12:43 PM EDT I received a call from Yash this afternoon requesting to cancel his yearly follow up with Lory Self in radiation oncology. Yash stated that he is fine and does not want any further follow up at this time. I did ask that if he needed assistance in the future to please call. documented in this encounter Plan of Treatment Upcoming Encounters Date Type Specialty Care Team Description 08/09/2021 Ancillary Procedure Radiology Paige Pérez MD Arrived [facility] [place], [place] [address] (Wo rk) documented as of this encounter Visit Diagnoses Not on filedocumented in this encounter Care Teams Water Pump Assembler Relationship Specialty Start Date End Date Jay Campos PA PCP - General General Internal Medicine 07/02/15 08/20/20 [address] [place] [address] documented as of this encounter
--- OUTSIDE RECORDS SUMMARY | 2021-08-09 11:03 | XMS_ITS | Encounter Summary ---
:1965 Author Organization [facility] [place] [address] Care Team Providers Name Role Phone Jay Campos Primary Care Provider Encounter Details Date Type Department Care Team Description 12/02/2018 Ancillary Procedure Radiology Library at [place] APRN [address] [facility] [place] [phone] (Wo rk) Social History Tobacco Use Types Packs/Day Years [...] Ancillary Procedure Radiology Paige Pérez MD Arrived [facility] NEUROLOGY DEPT [place], [place] [address] (Wo rk) documented as of this encounter Procedures Procedure Name Priority Date/Time Associated Diagnosis Comme nts FILM LIBRARY Routine 12/02/2018 9:35 PM Results f or this STORAGE ONLY CT EDT procedure ar e in SPINE the results section. documented in this encounter Results Film Library- Storage Only CT Spine (12/02/2018 9:35 PM EDT) Specimen (Source) Anatomical Location Collection Method / Collectio n Time Received Time / Laterality Volume Narrative RAD - 12/02/2018 9:35 PM EDT This exam is auto-finalizing. It's purpo se is for storage only. Madeline Vergara APRN [facility] FILM LIBRARY ORDERABLES Performing Organization Address City/State/ZIP Code Phon e Number [place], [place] documented in this encounter Visit Diagnoses Not on filedocumented in this encounter Care Teams Financial Planner Relationship Specialty Start Date End Date Jay Campos PA PCP - General General Internal Medicine 07/02/15 08/20/20 [address] [place] [address] documented as of this encounter
--- OUTSIDE RECORDS SUMMARY | 2021-08-09 11:03 | XMS_ITS | Encounter Summary ---
:1965 Author Organization [place] [address] Care Team Providers Name Role Phone Jay Campos Primary Care Provider Encounter Details Date Type Department Care Team Description 11/18/2018 Orders Only Radiation Oncology at [place], At risk for hypothyroidism; [facility] Head and neck cancer [address] RADIATION ONCOL OGY [address] [place], [place] [phone] (Wo rk) Social History Tobacco Use Types [...] Ancillary Procedure Radiology Paige Pérez MD Arrived [facility] NEUROLOGY DEPT [place], [place] [address] (Wo rk) documented as of this encounter Visit Diagnoses Diagnosis At risk for hypothyroidism Other specified conditions influencing h ealth status 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
--- OUTSIDE RECORDS SUMMARY | 2021-08-09 11:03 | XMS_ITS | Encounter Summary ---
:1965 [place] [address] Care Team Providers Name Role Phone Unknown Primary Care Provider Unavailable Encounter Details Date Type Department Care Team Description 08/09/2021 Ancillary Procedure Radiology Library at Latasha Pérez [facility] MD Darwin [facility] [place] [address] NEUROLOGY DEPT [phone] [place], [place] [address] (Wo rk) Social History Tobacco Use Types [...] as of this encounter Plan of Treatment Not on filedocumented as of this encounter Procedures Procedure Name Priority Date/Time Associated Diagnosis Comme nts FILM LIBRARY Routine 08/09/2021 10:53 AM Results for this STORAGE ONLY DX EDT procedure ar e in CHEST the results section. documented in this encounter Results Film Library- Storage Only DX Chest (08/09/2021 10:53 AM EDT) Specimen (Source) Anatomical Location Collection Method / Collectio n Time Received Time / Laterality Volume Narrative ANJEL GUZMAN - 08/09/2021 10:53 AM EDT This exam is auto-finalizing. It's purpo se is for storage only. Paige Pérez MD IMG FILM LIBRARY ORDERABLES Performing Organization Address City/State/ZIP Code Phon e Number [place], [place] documented in this encounter Visit Diagnoses Not on filedocumented in this encounter Care Teams Route Delivery Clerk Relationship Specialty Start Date End Date Unknown PCP - General 08/21/20 None documented as of this encounter
--- OUTSIDE RECORDS SUMMARY | 2021-08-09 11:03 | XMS_ITS | Encounter Summary ---
:1965 Author Organization [facility] [place] [address] Care Team Providers Name Role Phone Jay Campos Primary Care Provider Encounter Details Date Type Department Care Team Description 12/16/2018 Office Visit Radiation Oncology at Madeline Vergara Hea d and neck cancer [facility] [address] [place] [address] RADIATION ONCOL OGY [address] [place], [place] [phone] (Wo rk) Social History Tobacco Use Types [...] on file documented as of this encounter Progress Notes Madeline Vergara APRN - 12/16/2018 2:30 PM EDT Patient arrived for clinic visit and when nurse went to get him to be seen by provider he had left without speaking to pallet assembler. Call was made to patient to report on his recent CT scans and to discuss ongoing followup. Message left for him to call me The ongoing plan for surveillance for patient is contrast CT of neck / chest q6 mo to 3 yrs and then annually another 2 years (5yrs total since post treatment) documented in this encounter Plan of Treatment Upcoming Encounters Date Type Specialty Care Team Description 08/09/2021 Ancillary Procedure Radiology Paige Pérez MD Arrived [facility] NEUROLOGY DEPT [place], [place] [address] (Wo rk) documented as of this encounter Visit Diagnoses Diagnosis Head and neck cancer Malignant neoplasm of head, face, and ne ck documented in this encounter Care Teams Hot Walker Relationship Specialty Start Date End Date Jay Campos PA PCP - General General Internal Medicine 07/02/15 08/20/[address] [place] [address] documented as of this encounter
--- OUTSIDE RECORDS SUMMARY | 2021-08-09 11:03 | XMS_ITS | Encounter Summary ---
:1965 [place] [address] Care Team Providers Name Role Phone Unknown Primary Care Provider Unavailable Encounter Details Date Type Department Care Team Description 08/09/2021 Ancillary Procedure Radiology Library at Latasha Pérez Arrived [facility] MD [place] [facility] [address] NEUROLOGY DEPT [phone] [place], [place] [address] (Wo rk) Social History Tobacco [...] Ancillary Procedure Radiology Paige Pérez MD Arrived [facility] DR NEUROLOGY DEPT [place], [place] [address] (Wo rk) documented as of this encounter Procedures Procedure Name Priority Date/Time Associated Diagnosis Comme nts FILM LIBRARY Routine 08/09/2021 10:52 AM Results for this STORAGE ONLY MR EDT procedure ar e in HEAD the results section. documented in this encounter Results Film Library- Storage Only MR Head (08/09/2021 10:52 AM EDT) Specimen (Source) Anatomical Location Collection Method / Collectio n Time Received Time / Laterality Volume Narrative ANJEL GUZMAN - 08/09/2021 10:52 AM EDT This exam is auto-finalizing. It's purpo se is for storage only. Paige Pérez MD [facility] FILM LIBRARY ORDERABLES Performing Organization Address City/State/ZIP Code Phon e Number [facility], [place] documented in this encounter Visit Diagnoses Not on filedocumented in this encounter Care Teams Tenoner Operator Relationship Specialty Start Date End Date Unknown PCP - General 08/21/20 None documented as of this encounter
--- OUTSIDE RECORDS SUMMARY | 2021-08-09 11:03 | XMS_ITS | Encounter Summary ---
:1965 [place] [address] Care Team Providers Name Role Phone Unknown Primary Care Provider Unavailable Encounter Details Date Type Department Care Team Description 08/09/2021 Ancillary Procedure Radiology Library at Latasha Pérez Arrived [facility] MD Darwin [facility] [place] [address] NEUROLOGY DEPT [phone] [place], [place] [address] (Wo rk) Social History Tobacco [...] Ancillary Procedure Radiology Paige Pérez MD Arrived [facility] DR NEUROLOGY DEPT [place], [place] [address] (Wo rk) documented as of this encounter Procedures Procedure Name Priority Date/Time Associated Diagnosis Comme nts FILM LIBRARY Routine 08/09/2021 10:51 AM Results for this STORAGE ONLY CT EDT procedure ar e in HEAD the results section. documented in this encounter Results Film Library- Storage Only CT Head (08/09/2021 10:51 AM EDT) Specimen (Source) Anatomical Location Collection Method / Collectio n Time Received Time / Laterality Volume Narrative ANJEL GUZMAN - 08/09/2021 10:51 AM EDT This exam is auto-finalizing. It's purpo se is for storage only. Paige Pérez MD [facility] FILM LIBRARY ORDERABLES Performing Organization Address City/State/ZIP Code Phon e Number [facility] [place], [place] documented in this encounter Visit Diagnoses Not on filedocumented in this encounter Care Teams User Interface Developer Relationship Specialty Start Date End Date Unknown PCP - General 08/21/20 None documented as of this encounter
--- OUTSIDE RECORDS SUMMARY | 2021-08-09 11:03 | XMS_ITS | Encounter Summary ---
:1965 Author Organization [facility] [place] [address] Care Team Providers Name Role Phone Jay Campos Primary Care Provider Encounter Details Date Type Department Care Team Description 12/02/2018 Ancillary Procedure Radiology Library at [place] APR[place] [address] [facility] [place] [address] [phone] (Wo rk) Social History Tobacco Use Types [...] Ancillary Procedure Radiology Paige Pérez MD Arrived [facility] NEUROLOGY DEPT [place], [place] [address] (Wo rk) documented as of this encounter Procedures Procedure Name Priority Date/Time Associated Diagnosis Comme nts FILM LIBRARY Routine 12/02/2018 9:33 PM Results f or this STORAGE ONLY CT EDT procedure ar e in CHEST the results section. documented in this encounter Results Film Library- Storage Only CT Chest (12/02/2018 9:33 PM EDT) Specimen (Source) Anatomical Location Collection Method / Collectio n Time Received Time / Laterality Volume Narrative RAD - 12/02/2018 9:33 PM EDT This exam is auto-finalizing. It's purpo se is for storage only. Madeline Vergara APRN [facility] FILM LIBRARY ORDERABLES Performing Organization Address City/State/ZIP Code Phon e Number [place], [place] documented in this encounter Visit Diagnoses Not on filedocumented in this encounter Care Teams Gang Tailer Relationship Specialty Start Date End Date Jay Campos PA PCP - General General Internal Medicine 07/02/15 08/20/20 [address] [place] [address] documented as of this encounter
--- OUTSIDE RECORDS SUMMARY | 2021-08-09 11:04 | XMS_ITS | Encounter Summary ---
:1965 Author Organization [facility] [place] [address] Care Team Providers Name Role Phone Jay Campos Primary Care Provider Encounter Details Date Type Department Care Team Description 07/31/2017 Orders Only [place] He[place] d and neck cancer [facility] [address] RADIATION ONCOL OGY [address] [place], [place] [phone] (Wo rk) Social History Tobacco Use Types [...] Ancillary Procedure Radiology Paige Pérez MD Arrived [facility] NEUROLOGY DEPT [place], [place] [address] (Wo rk) documented as of this encounter Visit Diagnoses Diagnosis Head and neck cancer Malignant neoplasm of head, face, and ne ck documented in this encounter Care Teams Airport Utility Worker Relationship Specialty Start Date End Date Jay Campos PA PCP - General General Internal Medicine 07/02/15 08/20/20 [address] [place] [address] documented as of this encounter
--- OUTSIDE RECORDS SUMMARY | 2021-08-09 11:04 | XMS_ITS | Encounter Summary ---
:1965 Author Organization [place] [place] [address] Care Team Providers Name Role Phone Jay Campos Primary Care Provider Reason for Visit Reason Comments Radiation Follow-up Encounter Details Date Type Department Care Team Description 02/13/2016 Office Visit [facility] Joshua ead and neck cancer [facility] [address] [place], [place] RADIATION ONCOL OGY [address] [place], [place] [phone] (Wo rk) Social History Tobacco Use Types Packs/Day Years Used Date Former Smoker Cigarettes 0.25 15 Quit: 10/30/19 16 Smokeless Tobacco: Current User Chew Comments: trying to quit. Still chews. S moking 3-4cigs per day Alcohol Use Standard Drinks/Week Comments Yes 7 [...] on file documented as of this encounter Last Filed Vital Signs Vital Sign Reading Time Taken Comments Blood Pressure 116/76 02/13/2016 9:00 AM EST Pulse 86 02/13/2016 9:00 AM EST Temperature 37 ??C (98.6 ??F) 02/13/2016 9:00 AM EST Respiratory Rate 16 02/13/2016 9:00 AM EST Oxygen Saturation 99% 02/13/2016 9:00 AM EST Inhaled Oxygen Concentration - - Weight 64.3 kg (141 lb 12.8 oz) 02/13/2016 9:00 AM EST Height - - Body Mass Index 22.89 08/13/2015 10:06 AM EDT documented in this encounter Progress Notes Gilbert Novak MD - 02/13/2016 9:00 AM EST Images from the original note were not included. 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 Pathology demonstrated multiple adverse features, including gross PNI, DAVID and positive resection margins. He was treated with adjuvant radiotherapy to the left posterior neck given these findings. CONCURRENT THERAPY: None INTENT OF THERAPY: Definitive (Curative) RADIATION TREATMENT DETAILS: Treatment Site Left neck Prescribed Dose 54 Gy in 30 fractions Integrated Boost Treatment Site 1 First echelon draining basin (Levels II - V) Prescribed Dose 60 Gy in 30 fractions Integrated Boost Treatment Site 2 Tumor Bed Prescribed Dose 66Gy in 30 fractions Treatment completion date 10/17/15 Float Nurse Frazier from Current Plan (54, 60, and 66 Gy isodose lines shown): INTERVAL HISTORY Subjective: He is here today to follow-up on skin reaction felt to be attributed to silvadene, as well as reviewresults of PET/CT which is reported below. He report ongoing left shoulder pain, mostly at night. Today pain is 4/10, can increase to 6/10 with work. Ibuprofen affords partial relief, taking 400mg qhs.The pruritis over the back of the neck persists, as do the small firm nodules. Pain: Pain score today is 4/10. Imaging / Laboratory Studies: I have personally reviewed this patient's interval portal imaging to confirm accurate positioning and alignment which matches the patient's original approved treatment planning images. No other interval studies for review. EXAM: Constitutional: he appears well-developed and well-nourished, in good spirits. Skin: Nodules along left upper neck and hair line less prominent but still present. Neurologic: No point tenderness along the shoulder. No decrease in strength or sensation in the LUE.Pain with active resistance on elevation / abduction of shoulder. Performance Status: KPS Score ECOG Grade Definition 90-100 0 Fully active, able to carry on all pre-disease performance without restriction X 70-80 1 Restricted in physically strenuous activity but ambulatory and able to carry out work of alight or sedentary nature, e.g., light house work, office work 50-60 2 Ambulatory and capable of all selfcare but unable to carry out any work activities; up and about more than 50% of waking hours 30-40 3 Capable of only limited selfcare; confined to bed or chair more than 50% of waking hours 10-20 4 Completely disabled; cannot carry on any selfcare; totally confined to bed or chair Interval Studies: PET / CT 02/06/16 - mild/ diffuse FDG activity in soft tissue of left neck felt c/w prior RT. No evidence of FDG avid masses or LAD. IMPRESSION/PLAN Impression: No radiographic evidence of disease recurrence but skin nodules are suspicious. Shoulder pain most likely rotator-cuff etiology. Will consider referral to orthopedics after skin lesions are better characterized. Plan: His appt with Dr. Hansen is scheduled for early next month. I will discuss with Dr. Hansen regarding office biopsy of the skin lesions. Time Attestation: I entered the patient's exam room at 9:05 and exited at 9:19. Thus, 14 minutes of this 25 minute face-to face visit was spent counseling the patient and answering his questions on treatment options as outlined in my assessment and plan. documented in this encounter Plan of Treatment Upcoming Encounters Date Type Specialty Care Team Description 08/09/2021 Ancillary Procedure Radiology Paige Pérez MD Arrived [facility] DEPT [place], [place] [address] (Wo rk) documented as of this encounter Visit Diagnoses Diagnosis Head and neck cancer Malignant neoplasm of head, face, and ne ck documented in this encounter Care Teams Coordinate Measuring Machine Operator Relationship Specialty Start Date End Date Jay Campos PA PCP - General General Internal Medicine 07/02/15 08/20/20 [address] [place] [address] documented as of this encounter
--- OUTSIDE RECORDS SUMMARY | 2021-08-09 11:04 | XMS_ITS | Encounter Summary ---
:1965 Author Organization [facility] [place] [address] Care Team Providers Name Role Phone Jay Campos Primary Care Provider Encounter Details Date Type Department Care Team Description 02/13/2017 [facility] [address] RADIATION ONCOLOGY [place], [place] [phone] [place] [address] (Wo rk) Social History Tobacco Use Types [...] this encounter Miscellaneous Notes Telephone Encounter - Madeline Vergara APRN - 02/13/2017 2:27 PM EST Call to patient to report on his recent CT of the neck and chest that did not show concerning findings to suggest disease progression. documented in this encounter Plan of Treatment Upcoming Encounters Date Type Specialty Care Team Description 08/09/2021 Ancillary Procedure Radiology Paige Pérez MD Arrived [facility] [place], [place] [address] (Wo rk) documented as of this encounter Visit Diagnoses Not on filedocumented in this encounter Care Teams Medical Data Entry Clerk Relationship Specialty Start Date End Date Jay Campos PA PCP - General General Internal Medicine 07/02/15 08/20/20 [address] [place] [address] documented as of this encounter
--- OUTSIDE RECORDS SUMMARY | 2021-08-09 11:04 | XMS_ITS | Encounter Summary ---
:1965 Author Organization [facility] [address] Care Team Providers Name Role Phone Jay Campos Primary Care Provider Encounter Details Date Type Department Care Team Description 07/16/2017 [facility] [address] RADIATION ONCOLOGY [place], [place] [phone] [place] [address] (Wo rk) Social History Tobacco [...] Telephone Encounter - Madeline Vergara APRN - 07/16/2017 4:36 PM EDT Call to patient to report that his neck CT on 07/14/2017 showed no evidence of residual recurrent disease in the neck Patient is scheduled to come to clinic 07/23 for clinical evaluation documented in this encounter Plan of Treatment Upcoming Encounters Date Type Specialty Care Team Description 08/09/2021 Ancillary Procedure Radiology Paige Pérez MD Arrived [facility] [place], [place] [address] (Wo rk) documented as of this encounter Visit Diagnoses Not on filedocumented in this encounter Care Teams Transportation Officer Relationship Specialty Start Date End Date Jay Campos PA PCP - General General Internal Medicine 07/02/15 08/20/20 [address] [place] [address] documented as of this encounter
--- OUTSIDE RECORDS SUMMARY | 2021-08-09 11:04 | XMS_ITS | Encounter Summary ---
:1965 Author Organization [facility] [place] [address] Care Team Providers Name Role Phone Jay Campos Primary Care Provider Reason for Visit Reason Comments Radiation Follow-up skin cancer to the head and neck Encounter Details Date Type Department Care Team Description 12/18/2016 Office Visit Radiation Oncology at [facility] Cut aneous metastasis; [facility] Acquired hypothyroidism; [address] [place] [address] DR Head and neck cancer [place], [place] RADIATION ONCOL OGY [address] [place], [place] [phone] (Wo rk) Social History Tobacco Use Types [...] Sign Reading Time Taken Comments Blood Pressure 119/72 12/18/2016 11:22 AM EDT Pulse 71 12/18/2016 11:22 AM EDT Temperature 37.1 ??C (98.8 ??F) 12/18/2016 11:22 AM EDT Respiratory Rate 18 12/18/2016 11:22 AM EDT Oxygen Saturation 98% 12/18/2016 11:22 AM EDT Inhaled Oxygen Concentration - - Weight 69.2 kg (152 lb 9.6 oz) 12/18/2016 11:22 AM EDT Height - - Body Mass Index 24.63 02/25/2016 10:14 AM EST documented in this encounter Progress Notes [facility], [facility] - 12/18/2016 11:15 AM EDT Images from the original note were not included. Patient ID: Yash Dalton is a 51 y.o. 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 He isin clinic for scheduled followup. HPI Yash Dalton is a 50-year-old smoker who noted a left posterior neck mass last fall. He eventually presented to Dr. Hansen who appreciated a 2 cm, firm, fixed mass in the posterior triangle of the neck. CT of the neck July 12, 2015, demonstrated this to be 1.5 cm in maximal dimension without any evidence of other malignancy. ?? He was taken to the Operating room July 20, 2015, for modified left-neck dissection (levels 3 through5), random biopsies, and direct laryngoscopy. No primary site was noted. Pathology demonstrated gross extracapsular extension, focally positive resection margins, and gross perineural involvement of cranial nerve XI. Nerve graft was necessary to reconstruct the resected nerve. A total of six nodes were removed. ?? His case was discussed at Tumor Board August 02, 2015, with their recommendation was for PET CT and Radiation Oncology referral. The presumption was that this represented metastatic squamous cell carcinoma. PET CT was obtained earlier today and demonstrated no evidence of either residual disease or active occult primary. The patient saw Dr. Hansen for a postoperative examination after the PET CT, and was thought to be clinically doing well. The plan was for the patient to be discussed at Tumor Board on before making final recommendations. ?? Based on conversations with Rafat Chapin and Marek the feeling is that the resected node represents a metastasis from cutaneous rather than a mucosal primary Primarily, we discussed that the use of chemotherapy is not routine in this situation, nor is comprehensive mucosal and bilateral neck radiotherapy indicated. Factors that would sometimes lead to the use of chemotherapy for a mucosal primary, such as extranodal extent, positive margins, or perineural i nvasion are not routinely felt to be applicable to cancers of cutaneous primary. For this reason, informed consent was obtained today from the patient to treat the ipsilateral neck without planned concurrent chemotherapy. TREATMENT INTENT: Curative ?? REFERRING PROVIDER: Dr. Hansen ?? RT information: Treatment modality: VMAT ? Date of RT Start: 09/06/15 Date of RT Completion: 10/17/15 ?? Dose and targets: In 33 fractions, simultaneous integrated boost technique: 66 Gy to the tumor bed 60Gy to the adjacent lymphatics at high risk (levels II-superior V) 54Gy to low risk lymph node basin (level IV, inferior V) ? Fire Adjuster Target Coverage (66, 60 and 54 Gy isodose lines indicated): ?? TREATMENT TOLERANCE: With regard to side effects noted during radiotherapy, the patient tolerated treatment with expectedtoxicities for this treatment area and dose, including radiation dermatitis and pharyngitis which was managed conservatively. ?? TREATMENT RESPONSE: 02/06/2016-- PET CT- EXAMINATION: PET CT STANDARD (SKULL BASE TO MID-THIGH) ?? CLINICAL HISTORY: head / neck cancer of unknown primary (potentially skin), s/p neck dissection and adjuvant radiotherapy. ?? TECHNIQUE: Following IV injection of 78-aimigv-7-deoxyglucose (FDG) a standard uptake of approximately 60 minutes, a noncontrast CT scan followed by a PET scan were acquired from the top of head to mid thighs. The noncontrast CT was used for anatomic localization and photon attenuation correction of the PET scan. ?? Blood glucose level: 76 (mg/dL) ?? FDG dose: 13.2 mCi ?? COMPARISON: August 13, 2015 ?? FINDINGS: ?? HEAD/NECK: There is mild and diffuse increased FDG activity in the soft tissues of the left side of the neck. This finding is most consistent with the history of prior surgery and radiation therapy. There is no evidence of recurrent malignancy. ?? Polyps or retention cysts are present in the right maxillary sinus. ?? CHEST: No abnormal activity is present. ?? There is a nonhypermetabolic 4 mm nodule in the left lower lobe (image 87). Although not seen in the prior study, it may have been obscured by partial atelectasis. There are no prior studies for comparison. ?? ABDOMEN/PELVIS: No abnormal activity is present. The previously described increased activity in the stomach has largely resolved. ? SKELETON/EXTREMITIES: No abnormal activity is present. ?? IMPRESSION There is no evidence of recurrent or metastatic malignancy. There is a 4 mm left lower lobe nodule of questionable significance. Please consider follow-up imaging to assure stability. Patient Active Problem List Diagnosis Code ??? 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 Neck mass R22.1 ??? Acne vulgaris L70.0 ??? Epidermal cyst L72.0 . Past Surgical History: Procedure Laterality Date ??? PRO BIOPSY NASOPHARYNX, SURVEY Left 07/20/2015 BIOPSY NASOPHARYNX, SURVEY FOR UNKNOWN PRIMARY performed by Leonardo Hansen MD at [facility] MAIN OR ??? PRO LARYNGOSCOPY, FLEX SCOPE, BIOPSY N/A 07/20/2015 LARYNGOSCOPY WITH BIOPSY performed by Leonardo Hansen MD at [facility] MAIN OR ? ? PRO NERVE GRAFT, HEAD/NECK, ONE, >4CM Left 07/20/2015 NERVE GRAFT, HEAD OR NECK, >4CM performed by Leonardo Hogan MD at [facility] MAIN OR ??? PRO REMOVAL NODES, NECK, CERV MOD RAD Left 07/20/2015 @CERVICAL LYMPHADENECTOMY (MODIFIED RADICAL NECK DISSECTION) performed by Leonardo Hansen MD at [facility] MAIN OR Allergies Allergen Reactions ??? Silvadene [Silver Sulfadiazine] Itching and Rash Medications 12/18/16 1139 Not on File Patient is not taking any medications Social History Social History ??? Marital status: Single Spouse name: N/A ??? Number of children: N/A ??? 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 Smoking status: Former Smoker Packs/day: 0.25 Years: 15.00 Types: Cigarettes Quit date: 10/30/2015 ??? Smokeless tobacco: Current User Types: Chew Comment: trying to quit. Still chews. ??? Alcohol use 4.2 oz/week 7 Cans of beer per week Comment: 1 beer with supper ??? Drug use: No ??? Sexual activity: Yes Partners: Female Other Topics Concern ??? Not on file Social History Narrative Advance Directive: Not evaluated this visit. Interval History: Yash reports that he is doing very well and expresses no concerns today. Time from completion of treatment 14 months Problems at primary site No problem Rash back of neck has resolved Metastatic symptoms: none Pain No pain Swallowing difficulty Need chew a bit more--no choking Eats everything bolus sl smaller Taste Normal Xerostomia none Lymphedema none Tissue fibrosis none Speech difficutly none Trismus none Dental /gums He has established care with a local dentist brush every day and rinse with listerine-- ROM restriction None --stretch neck with no difficulty Skin changes none Diet restriction None Functional status good Smoking Not now. He continues to chew tobacco--two cans a week down from four a week. He is working on stopping. 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 Negative for activity change, appetite change, diaphoresis, fatigue and unexpected weight change. Feel great HENT: Negative. Negative for congestion, facial swelling, hearing loss, mouth sores, sore throat, trouble swallowing and voice change. See interim history Eyes: Negative. Negative for visual disturbance. Respiratory: Negative. Negative for cough and chest tightness. Cardiovascular: Negative. Gastrointestinal: Negative. Negative for abdominal distention and abdominal pain. Endocrine: Negative. Negative for cold intolerance and heat intolerance. Genitourinary: Negative. Musculoskeletal: Negative. Negative for arthralgias. Skin: Negative. Neurological: Negative. Negative for dizziness and weakness. Hematological: Negative. Psychiatric/Behavioral: Negative. KPS: 100 Vitals Office Visit from 12/18/2016 in Radiation Oncology at [facility] Weight - Scale 69.2 kg (152 lb 9.6 oz) Temp 37.1 ??C (98.8 ??F) Temp Source Oral Heart Rate 71 Heart Rate Source NIBP Resp 18 BP 119/72 Patient Position Sitting SpO2 98 % Objective: Physical Exam Constitutional: He is oriented to person, place, and time. He appears well- developed and well-nourished. No distress. HENT: Head: Normocephalic and atraumatic. Mouth/Throat: Oropharynx is clear and moist. No oropharyngeal exudate. Tobacco stained teeth Some gum recession No gum lesions Tongue midline No thrush No mucositis. Symmetric rise of uvula Eyes: Conjunctivae and EOM are normal. Right eye exhibits no discharge. Left eye exhibits no discharge. No scleral icterus. Neck: Normal range of motion. Neck supple. Cardiovascular: Normal rate, regular rhythm and normal heart sounds. Exam reveals no gallop and no friction rub. No murmur heard. Pulmonary/Chest: Effort normal and breath sounds normal. No respiratory distress. He has no wheezes.He has no rales. He exhibits no tenderness. Abdominal: Soft. Bowel sounds are normal. He exhibits no distension. Musculoskeletal: Normal range of motion. He exhibits no edema or tenderness. Lymphadenopathy: Head (right side): No submental, no submandibular, no tonsillar, no preauricular, no posterior auricular and no occipital adenopathy present. Head (left side): No submental, no submandibular, no tonsillar, no preauricular, no posterior auricular and no occipital adenopathy present. He has no cervical adenopathy. He has no axillary adenopathy. Right: No supraclavicular adenopathy present. Left: No supraclavicular adenopathy present. Neurological: He is alert and oriented to person, place, and time. He exhibits normal muscle tone. Coordination normal. Skin: Skin is warm and dry. No rash noted. He is not diaphoretic. No erythema. No pallor. Psychiatric: He has a normal mood and affect. His behavior is normal. Judgment and thought content normal. Vitals reviewed. TSH 11/2016-- 2.5 Assessment and Plan: Yash Dalton is a 51 y.o. 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 He was treated with radiation therapy for a total dose of 66 Gy completed on 10/17/2015. He has had a good recovery from treatment with [facility]. Yash briefly resumed smoking recently but has stopped again. He continues to chew tobacco but at a reduced level of two cans a week down from four cans a week. . He was commended for stopping smoking and decreasing the amount of chewing that he has been doing. He was encouraged to stop chewing. He continues followup with his PCP for health maintenance. Mr Aragon was seen by Dr Fernandez 08/29/2016 for follow-up of a rash behind his neck. This has resolved. Mr Dalton had a small lung nodule 4 mm LLL on his PET CT 01/2016. A chest XR has been ordered and hewill get this done next week. We will see patient again in six month for clinical evaluation TSH prior to clinic visit. Patient isto call with any questions or concerns in the interim. Consult Dr Novak who recommends that patient should have a surveillance CT of the neck done. We will order this. documented in this encounter Miscellaneous Notes Addendum Note - [facility] N[facility]era APRN - 12/25/2016 1:03 PM EST Addended by: CHING NAJERA on: 12/25/2016 01:03 PM Modules accepted: Orders documented in this encounter Plan of Treatment Upcoming Encounters Date Type Specialty Care Team Description 08/09/2021 Ancillary Procedure Radiology Paige Pérez MD Arrived [facility] NE[facility] [place], [place] [address] (Wo rk) documented as of this encounter Procedures Procedure Name Priority Date/Time Associated Diagnosis Comme nts CT SCAN (SCAN) 02/11/2017 12:00 AM Result s for this EST procedure are i n the results section . documented in this encounter Results SCAN DOC: CT SCAN (02/11/2017 12:00 AM EST) Narrative 02/11/2017 12:00 AM EST This result has an attachment that is no t available. Ordered by an unspecified provider. Scanning Provider MEDIA MGR SCAN EXT ORDR/RSLT documented in this encounter Visit Diagnoses Diagnosis Cutaneous metastasis Secondary malignant neoplasm of skin Acquired hypothyroidism Unspecified hypothyroidism Head and neck cancer Malignant neoplasm of head, face, and ne ck documented in this encounter Care Teams Furnace Room Supervisor Relationship Specialty Start Date End Date Jay Campos PA PCP - General General Internal Medicine 07/02/15 08/20/20 [address] [place] [address] documented as of this encounter
--- OUTSIDE RECORDS SUMMARY | 2021-08-09 11:04 | XMS_ITS | Encounter Summary ---
:1965 Author Organization [employer] [place] [address] Care Team Providers Name Role Phone Jay Campos Primary Care Provider Reason for Visit Reason Comments Follow-up Encounter Details Date Type Department Care Team Description 09/30/2018 Office Visit Otolaryngology at [facility] Leonardo Hansen Metastatic squamous cell car cinoma; [facility] Latasha Mao MD Acute otitis externa of left ear, [place] [address] [facility] [phone] CENTER OTOLARYNGOLOGY DEPT. [place], [place] [address] Social History Tobacco Use Types Packs/Day Years [...] Sign Reading Time Taken Comments Blood Pressure - - Pulse - - Temperature - - Respiratory Rate - - Oxygen Saturation - - Inhaled Oxygen Concentration - - Weight 71.7 kg (158 lb) 09/30/2018 3:31 PM EDT Height 167.6 cm (5' 6) 09/30/2018 3:31 PM EDT Body Mass Index 25.5 09/30/2018 3:31 PM EDT documented in this encounter Progress Notes Kenyatta Castellanos MD - 09/30/2018 3:40 PM EDT OTOLARYNGOLOGY - HEAD & NECK SURGERY OUTPATIENT CLINIC FOLLOW-UP NOTE Name: Yash Dalton Age/Sex: 53 y.o. male ENT Attending: Dr. Hansen Subjective/History of Present Illness Yash Dalton is a 53 y.o. male Stage [id number] cutaneous metastasis s/p left modified radical neck dissection requiring sacrifice of CN XI with primary nerve grafting. Pathology demonstrated multiple adverse features, including gross PNI, DAVID and positive resection margins. He was treated with adjuvant radiotherapy to the left posterior neck given these findings. Completed radiation 10/17/2015. Doing well. No concerns. 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 Still chews tobacco. Drinks 2-3 beers/day. No smoking. Reports having a left swimmers ear flare, treats it and says it goes away by itself. He reports ear drainage and issues every time he exposes ear to water since he was a kid. He has been treating with drops and debrox and usually it resolves. Reported some hearing loss on the left side as well. Physical Exam General: NAD, non-ill appearing Face: Symmetric without dysmorphic features Eyes: EOMI, conjunctiva healthy Ears: Auricles symmetric, no lesions. Noted some debris on the left ear canal, unable to visualize TM. Right TM normal. Nose: Patent nares, grossly normal appearance Oral Cavity/Pharynx: Mucosa is pink, oropharynx symmetric; no lesions noted. Neck: Soft, trachea midline; noted left neck scar, well healed. Chest: Unlabored breathing Neuro: Alert & oriented, moving extremities x 4 Intra-Clinic consult with Dr. Heriberto Vaca who performed binocular otoscopy and suctioned the left ear. ASSESSMENT & RECOMMENDATIONS Yash Dalton is a 53 y.o. male Doing well. Left ear with recurrent ear infections and drainage - question cholesteatoma. Recommendations: 1. Ciprodex drops 5 drops BID for 10 days 2. Follow-up with Dr. Heriberto Vaca in 1 month with coordinated audiogram. Kenyatta Castellanos MD, PGY-3 09/30/18 4:06 PM Leonardo Hansen MD - 09/30/2018 3:40 PM EDT Attending note: Patient seen and examined with the above resident. I have reviewed and agree with the history, physical, and assessment and plan. Leonardo Hansen MD FACS Otolaryngology - Head & Neck Surgery documented in this encounter Plan of Treatment Upcoming Encounters Date Type Specialty Care Team Description 08/09/2021 Ancillary Procedure Radiology Paige Pérez MD Arrived [facility] [place] [id number] (Wo rk) documented as of this encounter Procedures Procedure Name Priority Date/Time Associated Diagnosis Comme nts CT SCAN (SCAN) 12/02/2018 12:00 AM Result s for this EDT procedure are i n the results section . documented in this encounter Results SCAN DOC: CT SCAN (12/02/2018 12:00 AM EDT) Narrative 12/02/2018 12:00 AM EDT This result has an attachment that is no t available. Ordered by an unspecified provider. Scanning Provider MEDIA MGR SCAN EXT ORDR/RSLT documented in this encounter Visit Diagnoses Diagnosis Metastatic squamous cell carcinoma Other malignant neoplasm without specifi cation of site Acute otitis externa of left ear, unspec ified type documented in this encounter Care Teams Computer Technology Teacher Relationship Specialty Start Date End Date Jay Campos PA PCP - General General Internal Medicine 07/02/15 08/20/20 [address] [place] [address] documented as of this encounter
--- OUTSIDE RECORDS SUMMARY | 2021-08-09 11:04 | XMS_ITS | Encounter Summary ---
:1965 Author Organization [facility] [place] [address] Care Team Providers Name Role Phone Jay Campos Primary Care Provider Encounter Details Date Type Department Care Team Description 08/06/2016 Telephone Otolaryngology at [facility] [place] [address] Social History Tobacco Use Types Packs/Day Years [...] this encounter Miscellaneous Notes Telephone Encounter - Mildred Albert - 08/06/2016 9:02 AM EDT Left message for patient to call back to schedule follow-up appointment with ESTRELLA in August documented in this encounter Plan of Treatment Upcoming Encounters Date Type Specialty Care Team Description 08/09/2021 Ancillary Procedure Radiology Paige Pérez MD Arrived [facility] NEUROLOGY DEPT [place], [place] [address] (Wo rk) documented as of this encounter Visit Diagnoses Not on filedocumented in this encounter Care Teams Entry Level Manufacturing Engineer Relationship Specialty Start Date End Date Jay Campos PA PCP - General General Internal Medicine 07/02/15 08/20/20 [address] [place] [address] documented as of this encounter
--- OUTSIDE RECORDS SUMMARY | 2021-08-09 11:04 | XMS_ITS | Encounter Summary ---
:1965 Author Organization [facility] [place] [address] Care Team Providers Name Role Phone Jay Campos Primary Care Provider Encounter Details Date Type Department Care Team Description 04/27/2018 Orders Only Hematology/Oncology at [facility], Madeline Granados APRN Neck mass [address] RADIATION ONCOLOGY [facility] [phone] Social History Tobacco Use Types Packs/Day Years [...] Procedure Radiology Paige Pérez MD Arrived [facility] NEUROLOGY DEPT [place], [place] [address] (Wo rk) documented as of this encounter Visit Diagnoses Diagnosis Neck mass Swelling, mass, or lump in head and neck documented in this encounter Care Teams Lathe Puller Relationship Specialty Start Date End Date Jya Campos PA PCP - General General Internal Medicine 07/02/15 08/20/20 [address] [place] [address] documented as of this encounter
--- OUTSIDE RECORDS SUMMARY | 2021-08-09 11:04 | XMS_ITS | Encounter Summary ---
:1965 Author Organization [facility] [place] [address] Care Team Providers Name Role Phone Jay Campos Primary Care Provider Encounter Details Date Type Department Care Team Description 06/24/2017 [facility] [place] [facility] [place] [facility] [facility] [address] [place] [address] [place], [place] [phone] (Wo rk) Social History Tobacco Use Types [...] Ancillary Procedure Radiology Paige Pérez MD Arrived [facility] NEUROLOGY DEPT [place], [place] [address] (Wo rk) documented as of this encounter Visit Diagnoses Diagnosis Head and neck cancer Malignant neoplasm of head, face, and ne ck documented in this encounter Care Teams House Builder Relationship Specialty Start Date End Date Jay Campos PA PCP - General General Internal Medicine 07/02/15 08/20/20 [address] [place] [address] documented as of this encounter
--- OUTSIDE RECORDS SUMMARY | 2021-08-09 11:04 | XMS_ITS | Encounter Summary ---
:1965 Author Organization [facility] [place] [address] Care Team Providers Name Role Phone Jay Campos Primary Care Provider Encounter Details Date Type Department Care Team Description 02/28/2016 Telephone Otolaryngology at [facility] [place] [address] Social History Tobacco Use Types Packs/Day [...] this encounter Miscellaneous Notes Telephone Encounter - Colleen Cotto RN - 02/28/2016 9:40 AM EST Message ?? Phone call to to let him know that his recent biopsy was negative. ??He should follow up with Dr. 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 ?? documented in this encounter Plan of Treatment Upcoming Encounters Date Type Specialty Care Team Description 08/09/2021 Ancillary Procedure Radiology Paige Pérez MD Arrived [facility] NEUR[facility] DEPT [place], [place] [address] (Wo rk) documented as of this encounter Visit Diagnoses Not on filedocumented in this encounter Care Teams Road Sign Installer Relationship Specialty Start Date End Date Jay Campos PA PCP - General General Internal Medicine 07/02/15 08/20/20 [address] [place] [address] documented as of this encounter
--- OUTSIDE RECORDS SUMMARY | 2021-08-09 11:04 | XMS_ITS | Encounter Summary ---
:1965 Author Organization [facility] [address] Care Team Providers Name Role Phone Jay Campos Primary Care Provider Encounter Details Date Type Department Care Team Description 04/28/2018 Ancillary Procedure Radiology Library at Perlita Vergara APRN [address] [facility] [place] [place] [phone] (Wo rk) Social History Tobacco Use Types [...] Ancillary Procedure Radiology Paige Pérez MD Arrived [facility] NEUROLOGY DEPT [place], [place] [address] (Wo rk) documented as of this encounter Procedures Procedure Name Priority Date/Time Associated Diagnosis Comme nts FILM LIBRARY Routine 04/28/2018 12:00 AM Results for this STORAGE ONLY CT EDT procedure ar e in SPINE the results section. documented in this encounter Results Film Library- Storage Only CT Spine (04/28/2018 12:00 AM EDT) Specimen (Source) Anatomical Location Collection Method / Collectio n Time Received Time / Laterality Volume Narrative RAD - 04/30/2018 1:05 PM EDT This exam is auto-finalizing. It's purpo se is for storage only. Madeline Vergara APRN IMG FILM LIBRARY ORDERABLES Performing Organization Address City/State/ZIP Code Phon e Number RAD [place], [place] documented in this encounter Visit Diagnoses Not on filedocumented in this encounter Care Teams Running Specialist Relationship Specialty Start Date End Date Jay Campos PA PCP - General General Internal Medicine 07/02/15 08/20/20 [address] [place] [address] documented as of this encounter
--- OUTSIDE RECORDS SUMMARY | 2021-08-09 11:04 | XMS_ITS | Encounter Summary ---
:1965 Author Organization [facility] [place] [address] Care Team Providers Name Role Phone Jay Campos Primary Care Provider Reason for Visit Reason Comments Radiation Follow-up head and neck cancer Encounter Details Date Type Department Care Team Description 07/30/2017 Office Visit Radiation Oncology at Madeline Vergara Hea d and neck cancer [facility] [address] [place], [place] RADIATION ONCOL OGY [address] [place], [place] [phone] (Wo rk) Social History Tobacco Use Types [...] Sign Reading Time Taken Comments Blood Pressure 122/80 07/30/2017 2:31 PM EDT Pulse 80 07/30/2017 2:31 PM EDT Temperature 37.1 ??C (98.8 ??F) 07/30/2017 2:31 PM EDT Respiratory Rate 18 07/30/2017 2:31 PM EDT Oxygen Saturation 99% 07/30/2017 2:31 PM EDT Inhaled Oxygen Concentration - - Weight 73.3 kg (161 lb 9.6 oz) 07/30/2017 2:31 PM EDT Height 170.2 cm (5' 7) 07/30/2017 2:31 PM EDT Body Mass Index 25.31 07/30/2017 2:31 PM EDT documented in this encounter Progress Notes Madeline Vergara, WIND TURBINE ENGINEER - 07/30/2017 2:30 PM EDT Images from the original note were not included. Patient ID: Yash Dalton is a 52 y.o. 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 He isin clinic for scheduled followup. [...] node basin (level IV, inferior V) ? Manager Organizational Target Coverage (66, 60 and 54 Gy isodose lines indicated): ?? TREATMENT RESPONSE: 02/06/2016-- PET CT-IMPRESSION There is no evidence of recurrent or [...] PRIMARY performed by Leonardo Hansen MD at [facility] MAIN OR ??? PRO LARYNGOSCOPY, FLEX SCOPE, BIOPSY N/A 07/20/2015 LARYNGOSCOPY WITH BIOPSY performed by Leonardo Hansen MD at [facility] OR ? ? PRO NERVE GRAFT, HEAD/NECK, ONE, >4CM Left 07/20/2015 NERVE GRAFT, HEAD OR NECK, >4CM performed by Leonardo Hogan MD at [facility] OR ??? PRO REMOVAL NODES, NECK, CERV MOD RAD Left 07/20/2015 @CERVICAL LYMPHADENECTOMY (MODIFIED RADICAL NECK DISSECTION) performed by Leonardo Hansen MD at [facility] OR Allergies Allergen Reactions ??? Silvadene [Silver Sulfadiazine] Itching and Rash Medications 12/18/16 1139 Not on File Patient is not taking any medications Social History Social History ??? Marital status: Single Spouse name: N/A ??? Number of children: N/A ??? 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 Smoking status: [...] concerns today. Time from completion of treatment 21 months Problems at primary site No problem Metastatic symptoms: none Pain No pain Swallowing difficulty Need chew a bit more--no choking Eats everything bolus sl smaller Taste Normal Xerostomia none Lymphedema none Tissue fibrosis none Speech difficutly none Trismus none Dental /gums He has established care with a local dentist brush every day ROM restriction None --stretch neck with no difficulty Skin changes none Diet restriction None Functional status good Smoking Not now. He continues to chew tobacco--one can a week down from four a week. He is working on stopping. 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 Negative for activity change, appetite change, diaphoresis, fatigue and unexpected weight change. I feel great He has been working twelve hour days HENT: Negative. Negative for congestion, dental problem, facial swelling, hearing loss, mouth sores,sore throat, trouble swallowing and voice change. See interim history Eyes: Negative. Negative for visual disturbance. Respiratory: Negative. Negative for cough, chest tightness and shortness of breath. Cardiovascular: Negative. Negative for chest pain. Gastrointestinal: Negative. Negative for abdominal distention and abdominal pain. Endocrine: Negative. Negative for cold intolerance and heat intolerance. Genitourinary: Negative. Musculoskeletal: Negative. Negative for arthralgias. Skin: Negative. Neurological: Negative. Negative for dizziness, weakness, light-headedness and headaches. Hematological: Negative. Psychiatric/Behavioral: Negative. Mood positive KPS: 100 Vitals Office Visit from 12/18/2016 in Radiation Oncology at [facility] Weight - Scale 69.2 kg (152 lb [...] Judgment and thought content normal. Vitals reviewed. 07/14/2017-- CT of chest: No evidence of thoracic metastatic disease. No pulmonary nodules 07/14/2017-- CTof Neck: No evidence of residual recurrent disease in the neck 07/14/2017-- TSH = 2.95 Assessment and Plan: Yash Dalton is a 52 y.o. 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 He was treated with radiation therapy for a total dose of 66 Gy completed on 10/17/2015. He has had a good recovery from treatment with LUKE. Restaging imaging including CT of chest and CT of neck are negative indicating no recurrence. Risk of hypothyroidism due to XRT to neck: TSH is normal. Will continue to monitor Use of tobacco--patient is no longer smoking and is commended for this. He however continues to chewbut at a reduced level. He is again encouraged to stop. He does now want to meet with counselor. We will see patient again in six month for clinical evaluation TSH prior to clinic visit. Patient isto call with any questions or concerns in the interim. documented in this encounter Plan of Treatment Upcoming Encounters Date Type Specialty Care Team Description 08/09/2021 Ancillary Procedure Radiology Paige Pérez MD Arrived [facility] NEUROLOGY [place], [place] [address] (Wo rk) documented as of this encounter Procedures Procedure Name Priority Date/Time Associated Diagnosis Comme nts LAB SCAN 07/14/2017 12:00 AM Results for this EDT procedure are i n the results section . documented in this encounter Results SCAN DOC: LAB (07/14/2017 12:00 AM EDT) Narrative 07/14/2017 12:00 AM EDT This result has an attachment that is no t available. Ordered by an unspecified provider. Scanning Provider MEDIA MGR SCAN EXT ORDR/RSLT documented in this encounter Visit Diagnoses Diagnosis Head and neck cancer Malignant neoplasm of head, face, and ne ck documented in this encounter Care Teams Pharmaceutical Detailer Relationship Specialty Start Date End Date Jay Campos PA PCP - General General Internal Medicine 07/02/15 08/20/20 [address] [place] [address] documented as of this encounter
--- OUTSIDE RECORDS SUMMARY | 2021-08-09 11:04 | XMS_ITS | Encounter Summary ---
:1965 Author Organization [facility] [place] [address] Care Team Providers Name Role Phone Jay Campos Primary Care Provider Reason for Referral Physical Therapy (Routine) - Specialty Diagnoses / Procedures Referred By Contact Refer red To Contact Physical Therapy Diagnoses Status post neck dissection Leonardo Capps MD [facility] Latasha Portillo [place] [address] Referral ID Status Reason Start Date Expiration Date Visits V isits Requested Authorized [id number] Evaluate and 02/25/2016 08/23/2016 12 12 Treat Reason for Visit Reason Comments Follow-up F/U, c/o LT shoulder pain. Encounter Details Date Type Department Care Team Description 02/25/2016 Office Visit Otolaryngology at [facility] Leonardo Capps Metastatic squamous cell car cinoma; [facility] Latasha Mao MD Status post neck dissection; [place] [address] [facility] Skin nodule [phone] CENTER OTOLARYNGOLOGY DEPT. [place], [place] [address] Social History Tobacco Use Types [...] - Inhaled Oxygen Concentration - - Weight 65.3 kg (144 lb) 02/25/2016 10:14 AM EST Height 167.6 cm (5' 6) 02/25/2016 10:14 AM EST Body Mass Index 23.24 02/25/2016 10:14 AM EST documented in this encounter Progress Notes Leonardo Capps MD - 02/25/2016 10:00 AM EST Images from the original note were not included. [facility] Follow up note Yash Dalton is a 51 y.o. male Stage TxN1M0 cutaneous metastasis s/p left modified radical neck dissection requiring sacrifice of CN XI with primary nerve grafting. Pathology demonstrated multiple adverse features, including gross PNI, DAVID and positive resection margins. He was treated with adjuvant radiotherapy to the left posterior neck given these findings. Completed radiation 10/17/2015. New issues since last visit: He has developed progressive stiffness in his left shoulder. I had referred him for PT after his last visit with me and prior to radiation however he did not have any PT evaluation or treatment. He reports that hte pain is severe enough that it makes it difficult for him to sleep at night. This is only on occasion and mainly when the weather changes. Other than the shoulder pain he has notices some small nodules in the back of hte neck. Will occasionally itch. PROBLEM LIST: Patient Active Problem List Diagnosis Code ??? 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 Neck mass R22.1 PAST MEDICAL HISTORY: Past Medical History Diagnosis Date ??? Basal cell carcinoma of scalp ??? Radiation therapy complication BCCa of scalp SOCIAL HISTORY: Social History Substance Use Topics ??? Smoking status: Former Smoker Packs/day: 0.25 Years: 15.00 Types: Cigarettes Quit date: 10/30/2015 ??? Smokeless tobacco: Current User Types: Chew Comment: trying to quit. Still chews. ??? Alcohol use 4.2 oz/week 7 Cans of beer per week Comment: 1 beer with supper MEDICATIONS: Current Outpatient Prescriptions on File Prior to Visit Medication Sig Dispense Refill ??? ibuprofen (ADVIL;MOTRIN) 200 mg Tablet Take 400 mg by mouth every 6 hours as needed for Pain (mostly at night). Current Facility-Administered Medications on File Prior to Visit Medication Dose Route Frequency Provider Last Rate Last Dose ??? iohexol (OMNIPAQUE) 300 mg/mL solution 100 mL 100 mL Intravenous Once PRN Gilbert Novak MD ALLERGIES: Allergies Allergen Reactions ??? Silvadene [Silver Sulfadiazine] Itching and Rash ROS: Pertinent positive findings discussed above. No other findings on review of constitutional visual, cardiovascular, respiratory, gastrointestinal, genitourinary, musculoskeletal, dermatologic, neurological, psychiatric, endocrine, hematologic or immunologic systems. PHYSICAL EXAMINATION: There were no vitals filed for this visit. Wt Readings from Last 3 Encounters: 02/25/16 65.3 kg (144 lb) 02/13/16 64.3 kg (141 lb 12.8 oz) 11/15/15 62.5 kg (137 lb 12.8 oz) General: Well developed, no distress Head/face: Normocephalic, atraumatic Oral cavity: Normal exam of the lips, teeth/gums, floor of mouth, tongue. Normal oral mucosa. Normalpalate. Oropharynx: Normal soft palate, tonsils, lateral pharyngeal wall, posterior pharynx. Neck: S/p neck dissection. No palpable adenopathy. Small dermal nodules in the mid posterior neck (see picture below). Unclear if these are dermal mets. Resp: Normal speech, no stridor, normal respirations. Skin: Normal skin survey of the head and neck. MSK: Normal neck ROM and no trismus. Left shoulder with significantly decreased ROM. Neuro: AxOx3; CN II-XII is grossly intact Psych: Normal mood and affect. Responds appropriately to questions. REVIEW OF IMAGES: PET/CT reviewed with no evidence of recurrence. Procedure: Punch biopsy of skin lesion, posterior neck. Informed verbal consent. One of the larger lesions was injected with 1% xylocaine [id number] epinephrine. A 3 mm punch was used to obtain a punch biopsy. The biopsy site was closed with a 4-0 plain gut. Specimen submitted to pathology in formalin. Patient tolerated the procedure well. ASSESSMENT/RECOMMENDATIONS: Skin cancer s/p extensive treatment. New nodules. Not clear if these are dermal mets. Biopsy taken today will refer to dermatology if negative. 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 Needs physical therapy and referral given. Stressed the importance of following through with PT. Script for vicodin provided (contract signed and database queried). If pain persists, will refer to pain clinic. I appreciate the opportunity to be involved in Mr. Dalton's care. Please do not hesitate to contact me at [email or web address], (office), (page buckle attaching machine operator) or [phone] (mobile) if you have any questions. LEONARDO CAPPS MD 02/25/2016 documented in this encounter Plan of Treatment Upcoming Encounters Date Type Specialty Care Team Description 08/09/2021 Ancillary Procedure Radiology Paige Pérez MD Arrived [facility] DR NEUROLOGY DEPT [place] [address] (Wo rk) Scheduled Referrals Name Type Priority Associated Diagnoses Order S chedule Referral to Outpatient Referral Routine Status post neck Orde red: Physical Therapy dissection 02/25/2016 documented as of this encounter Procedures Procedure Name Priority Date/Time Associated Diagnosis Comme nts SURGICAL PATHOLOGY Routine 02/25/2016 10:47 AM Niyah hollis for this REPORT EST procedure are i n the results section. documented in this encounter Results Surgical Pathology Report (02/25/2016 10:47 AM EST) Component Value Ref Test Analysis Performed At [facility] Method Time Signature Surgical [id number] ?Location: [address] [place] [address] Report The signing pathologist has (i) examined the relevant preparation(s) for the [facility]IAL specimen(s) and (ii) rendered or confirmed the diagnosis(es) . [facility] . ?Surgic al Pathology DIAGNOSIS Skin, neck, punch biopsy: Follicular infundibular cyst, previously ruptured, with reactive changes, and fibrosis. Electronically signed by: ??Krystal Swanson MD Verified: ??02/27/2016 ?Dermatopathologist ADDITIONAL STUDIES PAS fungal stain is negative. CLINICAL INFORMATION Specimen Submitted: A - Skin, Neck Skin Nodule, Biopsy (1) Clinical History: History of metastatic skin c ancer status post radiation therapy and neck dissection. Collection of nodules posterior neck. Clinical Diagnosis: Dermal metastases versus other dermatologic condition SPECIMEN PROCESSING A - Labeled/Fixative: Neck skin nodule, formalin. Quantity/Size: Single, 0.3 x 0.3 cm. Tissue Description: Punch bi opsy of estevez-white, granular skin excised to a depth of 0.2 cm. Sections/Processing: Bisected. (T1) ??jwb Specimen (Source) Anatomical Collection Method Collection Time Re ceived Time Location / / Volume Laterality 02/25/2016 10:47 AM EST Leonardo Capps MD PATHOLOGY/CYTOLOGY ORDERABLE S Performing Organization Address City/State/[place] [address] documented in this encounter Visit Diagnoses Diagnosis Metastatic squamous cell carcinoma Other malignant neoplasm without specifi cation of site Status post neck dissection Skin nodule Localized superficial swelling, mass, or lump documented in this encounter Care Teams Hand Bander Relationship Specialty Start Date End Date Jay Campos PA PCP - General General Internal Medicine 07/02/15 08/20/20 [address] [place] [address] documented as of this encounter
--- OUTSIDE RECORDS SUMMARY | 2021-08-09 11:04 | XMS_ITS | Encounter Summary ---
:1965 Author Organization [facility] [place] [address] Care Team Providers Name Role Phone Jay Campos Primary Care Provider Encounter Details Date Type Department Care Team Description 03/10/2018 Telephone [place] [address] Social History Tobacco Use Types Packs/Day [...] Procedure Radiology Paige Pérez MD Arrived [facility] [address] NEUROLOGY DEPT [place], [place] [address] (Wo rk) documented as of this encounter Visit Diagnoses Not on filedocumented in this encounter Care Teams Divisional Human Resources Director Relationship Specialty Start Date End Date Jay Campos PA PCP - General General Internal Medicine 07/02/15 08/20/20 [address] [place] [address] documented as of this encounter
--- OUTSIDE RECORDS SUMMARY | 2021-08-09 11:04 | XMS_ITS | Encounter Summary ---
:1965 Author Organization [facility] [place] [address] Care Team Providers Name Role Phone Jay Campos Primary Care Provider Encounter Details Date Type Department Care Team Description 07/14/2017 Hospital Encounter Radiology Library at [place], Garrick Granados APRN [address] [facility] [place] [id number] [phone] (Wo rk) Social History Tobacco Use Types [...] Radiology Paige Pérez MD Arrived [facility] NEUROLOGY DEPT [place], [place] [address] (Wo rk) documented as of this encounter Procedures Procedure Name Priority Date/Time Associated Diagnosis Comme nts FILM LIBRARY Routine 07/14/2017 12:00 AM Results for this STORAGE ONLY CT EDT procedure ar e in CHEST the results section. documented in this encounter Results Film Library- Storage Only CT Chest (07/14/2017 12:00 AM EDT) Specimen (Source) Anatomical Location Collection Method / Collectio n Time Received Time / Laterality Volume Narrative RAD - 07/15/2017 1:19 AM EDT This exam is for storage only and is aut o-finalizing. Madeline Vergara APRN IMG FILM LIBRARY ORDERABLES Performing Organization Address City/State/ZIP Code Phon e Number [place], [place] documented in this encounter Visit Diagnoses Not on filedocumented in this encounter Care Teams Securities Counselor Relationship Specialty Start Date End Date Jay Campos PA PCP - General General Internal Medicine 07/02/15 08/20/20 [address] [place] [address] documented as of this encounter
--- OUTSIDE RECORDS SUMMARY | 2021-08-09 11:04 | XMS_ITS | Encounter Summary ---
:1965 Author Organization [facility] [place] [address] Care Team Providers Name Role Phone Jay Campos Primary Care Provider Encounter Details Date Type Department Care Team Description 02/27/2016 Telephone Otolaryngology at [facility] [place] [address] Social History Tobacco Use Types Packs/Day [...] Notes Telephone Encounter - Mildred Albert - 02/27/2016 8:49 AM EST Left message for patient to call back to schedule 3mo f/u with Dr. Hansen documented in this encounter Plan of Treatment Upcoming Encounters Date Type Specialty Care Team Description 08/09/2021 Ancillary Procedure Radiology Paige Pérez MD Arrived [facility] NEUROLOGY DEPT [place], [place] [address] (Wo rk) documented as of this encounter Visit Diagnoses Not on filedocumented in this encounter Care Teams Log Driver Relationship Specialty Start Date End Date Jay Campos PA PCP - General General Internal Medicine 07/02/15 08/20/20 [address] [place] [address] documented as of this encounter
--- OUTSIDE RECORDS SUMMARY | 2021-08-09 11:04 | XMS_ITS | Encounter Summary ---
:1965 Author Organization [facility] [place] [address] Care Team Providers Name Role Phone Jay Campos Primary Care Provider Encounter Details Date Type Department Care Team Description 12/26/2016 Telephone Otolaryngology at [facility] [place] [address] Social History Tobacco Use Types Packs/Day [...] Notes Telephone Encounter - Mildred Albert - 12/26/2016 9:43 AM EST Left message for patient to call back to schedule 15 month grid with ESTRELLA (ok for AP or DM). 2 lettersprevisouly sent. Third attempt to contact, recall closed. documented in this encounter Plan of Treatment Upcoming Encounters Date Type Specialty Care Team Description 08/09/2021 Ancillary Procedure Radiology Paige Pérez MD [facility]rived [facility] NE[facility] DE[facility] [place], [place] [address] (Wo rk) documented as of this encounter Visit Diagnoses Not on filedocumented in this encounter Care Teams Security Tester Relationship Specialty Start Date End Date Jay Campos PA PCP - General General Internal Medicine 07/02/15 08/20/20 [address] [place] [address] documented as of this encounter
--- OUTSIDE RECORDS SUMMARY | 2021-08-09 11:04 | XMS_ITS | Encounter Summary ---
:1965 Author Organization [facility] [place] [address] Care Team Providers Name Role Phone Jay Campos Primary Care Provider Reason for Visit Reason Comments Radiation Follow-up neck metastasis Encounter Details Date Type Department Care Team Description 04/22/2018 Office Visit Radiation Oncology Madeline Vergara, Cancer of head and neck; at [facility] At risk for hypothyroidism [address] [place], [place] RADIATION ONCOL OGY [address] [place], [place] [phone] Social History Tobacco Use Types Packs/Day Years [...] EST Inhaled Oxygen Concentration - - Weight 75 kg (165 lb 6.4 oz) 04/22/2018 2:40 PM EST Height 165.1 cm (5' 5) 04/22/2018 2:40 PM EST Body Mass Index 27.52 04/22/2018 2:40 PM EST documented in this encounter Progress Notes Madeline Vergara, ION IMPLANT MACHINE OPERATOR - 04/22/2018 3:15 PM EST Images from the original note were not included. Patient ID: Yash Dalton is a 53 y.o. male diagnosed with an isolated lymph node metastasis believed to be from a previously treated squamous cell carcinoma of the scalp who completed adjuvant radiotherapy to his left neck at the [facility] in [place], [place] to a dose of 66Gy which was completed on 10/17/2015 He is in clinic for scheduled followup. HPI Yash Dalton [...] node basin (level IV, inferior V) ? Import And Export Clerk Target Coverage (66, 60 and 54 Gy isodose lines indicated): ?? TREATMENT RESPONSE: 02/06/2016-- PET CT-IMPRESSION There is no evidence of recurrent or metastatic malignancy. There is a 4 mm left lower lobe nodule of questionable significance. Please consider follow-up imaging to assure stability. 07/14/2017-- CT of chest: No evidence of thoracic metastatic disease. No pulmonary nodules 07/14/2017-- CTof Neck: No evidence of residual recurrent disease in the neck Patient Active Problem List Diagnosis Code ??? 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 Neck mass R22.1 ??? Acne vulgaris L70.0 ??? Epidermal cyst L72.0 . Past Surgical History: Procedure Laterality Date ??? PRO BIOPSY NASOPHARYNX, SURVEY Left 07/20/2015 BIOPSY NASOPHARYNX, SURVEY FOR UNKNOWN PRIMARY performed by Leonardo Hansen MD at [facility] MAIN OR ??? PRO LARYNGOSCOPY, FLEX SCOPE, BIOPSY N/A 07/20/2015 LARYNGOSCOPY WITH BIOPSY performed by Leonardo Hansen MD at [facility] MAIN OR ? ? PRO NERVE GRAFT, HEAD/NECK, ONE, >4CM Left 07/20/2015 NERVE GRAFT, HEAD OR NECK, >4CM performed by Leonardo Hogan MD at [facility] MAIN OR ??? PRO REMOVAL NODES, NECK, CERV MOD RAD Left 07/20/2015 @CERVICAL LYMPHADENECTOMY (MODIFIED RADICAL NECK DISSECTION) performed by Leonardo Hansen MD at [facility] MAIN OR Allergies Allergen Reactions ??? Silvadene [Silver Sulfadiazine] Itching and Rash Medications 07/30/17 1434 Not on File Patient is not taking any medications Social History Socioeconomic History ??? Marital status: Single Spouse name: Not on file ??? Number of children: Not on file ??? Years of education: Not on file ??? Highest education level: Not on file Social Needs ??? Financial resource strain: Not on file ??? Food insecurity - worry: Not on file ??? Food insecurity - inability: Not on file ??? Transportation needs - medical: Not on file ??? Transportation needs - non-medical: Not on file Occupational History ??? 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 Smoking status: Former Smoker Packs/day: 0.25 Years: 15.00 Pack years: 3.75 Types: Cigarettes Last attempt to quit: 10/30/2015 Years since quittin.4 ??? Smokeless tobacco: Current User Types: Chew ??? Tobacco comment: trying to quit. Still chews. Substance and Sexual Activity ??? Alcohol use: Yes Alcohol/week: 4.2 oz Types: 7 Cans of beer per week Comment: 1 beer with supper ??? Drug use: No ??? Sexual activity: Yes Partners: Female Other Topics Concern ??? Not on file Social History Narrative ??? Not on file Advance Directive: Not evaluated this visit. Interval History: Yash reports that he is doing very well and expresses no concerns today. He has been working long hours and tolerates the activity well. 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 Neck supple. No adenopathy neck No fibrosis neck Good neck mobility/ROM Cardiovascular: Normal rate, regular rhythm and normal [...] and thought content normal. Vitals reviewed. 07/14/2017-- TSH = 2.95 Assessment and Plan: Yash Dalton is a 53 y.o. male diagnosed with an isolated lymph node metastasis believed to be from a previously treated squamous cell carcinoma of the scalp who completed adjuvant radiotherapy to his left neck at the [facility] in [place], [place]. He was treated with radiation therapy for a total dose of 66 Gy completed on 10/17/2015. He has had a good recovery from treatment with LUKE. Restaging imaging including CT of chest and CT of neck were not done prior to clinic visit. Patient will have this done and I will call him with results. Risk of hypothyroidism due to XRT to neck: TSH to be drawn Will continue to monitor Use of tobacco--patient is no longer smoking and is commended for this. He however continues to chewbut at a reduced level. He is again encouraged to stop. He does now want to meet with counselor. We will see patient again in six month for clinical evaluation TSH prior to clinic visit and restaging CT of neck and CT of the chest Patient is to call with any questions or concerns in the interim. documented in this encounter Plan of Treatment Upcoming Encounters Date Type Specialty Care Team Description 08/09/2021 Ancillary Procedure Radiology Paige Pérez MD Arrived [facility] DR NEUROLOGY [place], [place] [address] (Wo rk) documented as of this encounter Procedures Procedure Name Priority Date/Time Associated Diagnosis Comme nts CT SCAN (SCAN) 04/28/2018 12:00 AM Result s for this EDT procedure are i n the results section . CT SCAN (SCAN) 04/28/2018 12:00 AM Result s for this EDT procedure are i n the results section . documented in this encounter Results SCAN DOC: CT SCAN (04/28/2018 12:00 AM EDT) Narrative 04/28/2018 12:00 AM EDT This result has an attachment that is no t available. Ordered by an unspecified provider. Scanning Provider MEDIA MGR SCAN EXT ORDR/RSLT SCAN DOC: CT SCAN (04/28/2018 12:00 AM EDT) Narrative 04/28/2018 12:00 AM EDT This result has an attachment that is no t available. Ordered by an unspecified provider. Scanning Provider MEDIA MGR SCAN EXT ORDR/RSLT documented in this encounter Visit Diagnoses Diagnosis Cancer of head and neck At risk for hypothyroidism Other specified conditions influencing h ealth status documented in this encounter Care Teams Chief Deputy Clerk/Bailiff Relationship Specialty Start Date End Date Jay Campos PA PCP - General General Internal Medicine 07/02/15 08/20/20 [address] [place] [address] documented as of this encounter
--- OUTSIDE RECORDS SUMMARY | 2021-08-09 11:04 | XMS_ITS | Encounter Summary ---
:1965 Author Organization [facility] [place] [address] Care Team Providers Name Role Phone Jay Campos Primary Care Provider Encounter Details Date Type Department Care Team Description 04/28/2018 Ancillary Procedure Radiology Library at Perlita Vergara APRN [address] [facility] [place] [id number] [phone] (Wo rk) Social History Tobacco Use Types [...] Ancillary Procedure Radiology Paige Pérez MD Arrived [facility] NEUROLOGY DEPT [place], [place] [address] (Wo rk) documented as of this encounter Procedures Procedure Name Priority Date/Time Associated Diagnosis Comme nts FILM LIBRARY Routine 04/28/2018 12:05 AM Results for this STORAGE ONLY CT EDT procedure ar e in CHEST the results section. documented in this encounter Results Film Library- Storage Only CT Chest (04/28/2018 12:05 AM EDT) Specimen (Source) Anatomical Location Collection Method / Collectio n Time Received Time / Laterality Volume Narrative RAD - 04/30/2018 1:06 PM EDT This exam is auto-finalizing. It's purpo se is for storage only. Madeline Vergara APRN IMG FILM LIBRARY ORDERABLES Performing Organization Address City/State/ZIP Code Phon e Number RAD [place], [place] documented in this encounter Visit Diagnoses Not on filedocumented in this encounter Care Teams Dimension Stone Quarry Supervisor Relationship Specialty Start Date End Date Jay Campos PA PCP - General General Internal Medicine 07/02/15 08/20/20 [address] [place] [address] documented as of this encounter
--- OUTSIDE RECORDS SUMMARY | 2021-08-09 11:04 | XMS_ITS | Encounter Summary ---
:1965 Author Organization [facility] [place] [address] Care Team Providers Name Role Phone Jay Campos Primary Care Provider Reason for Visit Reason Comments Skin Check Consultation (Routine) - Specialty Diagnoses / Procedures Referred By Contact Refer red To Contact Dermatology Diagnoses Neck mass Dermatographism Skin cancer of scalp Madeline Vergara APRN Hammer, Charles J, MD [facility] [address] [facility] RADIATION [place] [address] [place] [address] Fax: Referral ID Status Reason Start Date Expiration Date Visits V isits Requested Authorized [id number] Consult, 05/31/2016 11/27/2016 1 1 Test & Treat Encounter Details Date Type Department Care Team Description 08/29/2016 [facility] Acne vulgaris; [address] [place] [address] Epidermal [place] [address] [place] [address] [phone] (Wo rk) Social History Tobacco Use Types [...] documented as of this encounter Progress Notes Dieter Frenandez MD - 08/29/2016 4:15 PM EDT PROBLEM: Rash, nape of the neck. Yash is a 51-year-old gentleman who about a year ago completed radiation therapy for a tumor in his throat. At that time he developed a rash on the lower-occipital scalp and was given Silvadene cream by the heme/onc physician treating. Unfortunately, he reacted, and he broke out with a rash to this. He unfortunately developed a rash from this cream and had to discontinue it. He wonders what can be done, what other treatments might be available for this problem. He is here today with his significant other Tete. PHYSICAL EXAMINATION: Reveals a pleasant, 51-year-old gentleman who has a number of open and closed comedones on the lower occipital scalp. He has none on the yxd-yakm-tgitvhv neck. He does not have any radiation dermatitis. He has significant acne scarring of his cheeks and face from teenage acne involvement, which today is largely quiescent, although he complains bitterly of the odor of the oily material when it is discharged onto his face, this despite washing his face every day. A/P: 1. Open and closed comedones, nape of neck. a. Too many to easily I and D. b. Recommend instead he begin tretinoin 0.05% cream, apply on a nightly basis to affected areas; 20 grams dispensed with 5 refills. Also given a sample tube of Retin-A with 0.04% with microspheres. 2. Sebaceous complexion. a. Patient concerned about the smell of the sebaceous material being produced on his face. b. Recommended 2.5% to 5% benzoyl peroxide in a water-based gel, apply to face on a q.a.m. basis. Would not recommend the use of peroxide. Return to clinic here at the point of diminishing returns. CC: Jay Campos, ATC, PA-C documented in this encounter Plan of Treatment Upcoming Encounters Date Type Specialty Care Team Description 08/09/2021 Ancillary Procedure Radiology Paige Pérez MD Arrived [facility] [address] NEUROLOGY DEPT [place], [place] [address] (Wo rk) Scheduled Referrals Name Type Priority Associated Order Schedule Diagnoses Referral to Outpatient Referral Routine Neck mass Ordered: Dermatology Dermatographism 05/31/2016 Skin cancer of scalp documented as of this encounter Visit Diagnoses Diagnosis Acne vulgaris Other acne Epidermal cyst Sebaceous cyst documented in this encounter Care Teams Money Market Dealer Relationship Specialty Start Date End Date Jay Campos PA PCP - General General Internal Medicine 07/02/15 08/20/20 [address] [place] [address] documented as of this encounter
--- OUTSIDE RECORDS SUMMARY | 2021-08-09 11:04 | XMS_ITS | Encounter Summary ---
:1965 Author Organization [facility] [place] [address] Care Team Providers Name Role Phone Jay Campos Primary Care Provider Encounter Details Date Type Department Care Team Description 07/14/2017 Hospital Encounter Radiology Library at [place], Garrick Granados APRN [address] [facility] [place] [id number] [phone] (Wo rk) Social History Tobacco Use Types [...] Ancillary Procedure Radiology Paige Pérez MD Arrived [facility] NEUROLOGY DEPT [place], [place] [address] (Wo rk) documented as of this encounter Procedures Procedure Name Priority Date/Time Associated Diagnosis Comme nts FILM LIBRARY Routine 07/14/2017 12:05 AM Results for this STORAGE ONLY CT EDT procedure ar e in SPINE the results section. documented in this encounter Results Film Library- Storage Only CT Spine (07/14/2017 12:05 AM EDT) Specimen (Source) Anatomical Location Collection Method / Collectio n Time Received Time / Laterality Volume Narrative RAD - 07/15/2017 1:20 AM EDT This exam is for storage only and is aut o-finalizing. Madeline Vergara APRN IMG FILM LIBRARY ORDERABLES Performing Organization Address City/State/ZIP Code Phon e Number [place], [place] documented in this encounter Visit Diagnoses Not on filedocumented in this encounter Care Teams Special Investigation Unit Investigator Relationship Specialty Start Date End Date Jay Campos PA PCP - General General Internal Medicine 07/02/15 08/20/20 [address] [place] [address] documented as of this encounter
--- OUTSIDE RECORDS SUMMARY | 2021-08-09 11:04 | XMS_ITS | Encounter Summary ---
:1965 Author Organization [facility] [place] [address] Care Team Providers Name Role Phone Jay Campos Primary Care Provider Reason for Referral Consultation (Routine) - Specialty Diagnoses / Procedures Referred By Contact Refer red To Contact Dermatology Diagnoses Neck mass Dermatographism Skin cancer of scalp Madeline Vergara APRN Hammer, Charles J, MD [address] RADIATION [place] [address] [place] [address] Fax: Referral ID Status Reason Start Date Expiration Date Visits V isits Requested Authorized [id number] Consult, 05/31/2016 11/27/2016 1 1 Test & Treat Reason for Visit Reason Comments Radiation Follow-up Encounter Details Date Type Department Care Team Description 05/29/2016 Office Visit Radiation Oncology at Madeline Vergara Nec k mass; [facility] DOUGHNUT MACHINE OPERATOR HELPER Dermatographism; [address] [place] [address] DR Other specified acquired hypothyroidism; [place], [place] RADIATION ONCOL OGY Skin cancer of scalp [address] [place], [place] [phone] (Wo rk) Social History Tobacco Use Types [...] Sign Reading Time Taken Comments Blood Pressure 128/82 05/29/2016 10:03 AM EDT Pulse 86 05/29/2016 10:03 AM EDT Temperature 36.6 ??C (97.9 ??F) 05/29/2016 10:03 AM EDT Respiratory Rate 18 05/29/2016 10:03 AM EDT Oxygen Saturation 100% 05/29/2016 10:03 AM EDT Inhaled Oxygen Concentration - - Weight 68.4 kg (150 lb 12.8 oz) 05/29/2016 10:03 AM EDT Height - - Body Mass Index 24.34 02/25/2016 10:14 AM EST documented in this encounter Progress Notes Madeline Vergara, DOUGHNUT MACHINE OPERATOR HELPER - 05/29/2016 9:45 AM EDT Images from the original note were not included. Patient ID: Yash Dalton is a 51 y.o. 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 [facility]. HPI Yash Dalton is [...] node basin (level IV, inferior V) ? Inclined Railway Operator Target Coverage (66, 60 and 54 Gy [...] radiotherapy. ?? TECHNIQUE: Following IV injection of 76-fuzgxv-1-deoxyglucose (FDG) a standard uptake of approximately 60 [...] ??? 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 Neck mass R22.1 . Past Surgical History: Procedure Laterality Date ??? PRO BIOPSY NASOPHARYNX, SURVEY Left 07/20/2015 BIOPSY NASOPHARYNX, SURVEY FOR UNKNOWN PRIMARY performed by Leonardo Hansen MD at [facility] OR ??? PRO LARYNGOSCOPY, FLEX SCOPE, BIOPSY N/A 07/20/2015 LARYNGOSCOPY WITH BIOPSY performed by Leonardo Hansen MD at [facility] OR ? ? PRO NERVE GRAFT, HEAD/NECK, ONE, >4CM Left 07/20/2015 NERVE GRAFT, HEAD OR NECK, >4CM performed by Leonardo Hogan MD at [facility] OR ??? PRO REMOVAL NODES, NECK, CERV MOD RAD Left 07/20/2015 @CERVICAL LYMPHADENECTOMY (MODIFIED RADICAL NECK DISSECTION) performed by Leonardo Hansen MD at [facility] OR Allergies Allergen Reactions ??? Silvadene [Silver Sulfadiazine] Itching and Rash Medications 05/29/16 1015 Medication Sig Taking? ibuprofen (ADVIL;MOTRIN) 200 mg Tablet Take 400 mg by mouth every 6 hours as needed for Pain (mostlyat night). Reported on 05/29/2016 Social History Social History ??? Marital status: Single Spouse name: N/A ??? Number of children: N/A ??? 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 Smoking status: [...] concerns today. 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 Negative for activity change, appetite change, diaphoresis, fatigue and unexpected weight change. Feel great HENT: Negative. Negative for congestion, facial swelling, hearing loss, mouth sores, sore throat, trouble swallowing and voice change. Eyes: Negative. Respiratory: Negative. Negative for cough and chest tightness. Cardiovascular: Negative. Gastrointestinal: Negative. Negative for abdominal distention and abdominal pain. Endocrine: Negative. Negative for cold intolerance and heat intolerance. Genitourinary: Negative. Musculoskeletal: Negative. Negative for arthralgias. Neurological: Negative. Negative for dizziness and weakness. Hematological: Negative. Psychiatric/Behavioral: Negative. Vitals Office Visit from 05/29/2016 in [facility] Radiation Oncology Weight - Scale 68.4 kg (150 lb 12.8 oz) Temp 36.6 ??C (97.9 ??F) Temp Source Oral Heart Rate 86 Resp 18 BP 128/82 BP Location Left arm Patient Position Sitting SpO2 100 % KPS: 100 Objective: Physical Exam Constitutional: He is oriented to person, place, and time. He appears well- developed and well-nourished. No distress. HENT: Head: Normocephalic and atraumatic. Mouth/Throat: Oropharynx is clear and moist. No oropharyngeal exudate. Tobacco stained teeth Some gum recession Tongue midline No thrush No mucositis. Symmetric [...] Judgment and thought content normal. Vitals reviewed. Assessment and Plan: Yash Dalton is a 51 y.o. 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 He was treated with radiation therapy for a total dose of 66 Gy completed on . He has had a good recovery fromtreatment with [facility]. Yash does continue to smoke about two to three cigarettes a day and he continues to chew tobacco. He is not motivated to stop though he was encouraged to do so. He continues followup with his PCP for health maintenance and PCP wants to schedule patient for a screening colonoscopy. Patient has not yet seen cement cutter for annual followup and would like us to schedule this with Dr Fernandez in [place]. We will see patient again in six month for clinical evaluation with chest XR and TSH at that time prior to clinic visit. Patient is to call with any questions or concerns in the interim. documented in this encounter Plan of Treatment Upcoming Encounters Date Type Specialty Care Team Description 08/09/2021 Ancillary Procedure Radiology Paige Pérez MD Arrived [facility] NEUROLOGY DEPT [place], [place] [address] (Wo rk) Scheduled Referrals Name Type Priority Associated Order Schedule Diagnoses Referral to Outpatient Referral Routine Neck mass Ordered: Dermatology Dermatographism 05/31/2016 Skin cancer of scalp documented as of this encounter Visit Diagnoses Diagnosis Neck mass Swelling, mass, or lump in head and neck Dermatographism Dermatographic urticaria Other specified acquired hypothyroidism Skin cancer of scalp Unspecified malignant neoplasm of scalp and skin of neck documented in this encounter Care Teams Marketing Sales Consultant Relationship Specialty Start Date End Date Jya Campos PA PCP - General General Internal Medicine 07/02/15 08/20/20 [address] [place] [address] documented as of this encounter
--- OUTSIDE RECORDS SUMMARY | 2021-08-09 11:04 | XMS_ITS | Encounter Summary ---
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 and skin of [facility] [place] [address] RADIATION ONCOLOGY [phone] [place], [place] [address] Social History Tobacco Use Types [...] Radiology Paige Pérez MD Arrived [facility] NEUROLOGY DEPT [place], [place] [address] (Wo rk) documented as of this encounter Visit Diagnoses Diagnosis Squamous cell cancer of scalp and skin o f neck Squamous cell carcinoma of scalp and ski n of neck documented in this encounter Care Teams Lidar Analyst Relationship Specialty Start Date End Date Jay Campos PA PCP - General General Internal Medicine 07/02/15 08/20/20 [address] [place] [address] documented as of this encounter
--- OUTSIDE RECORDS SUMMARY | 2021-08-09 11:04 | XMS_ITS | Encounter Summary ---
:1965 Author Organization [facility] [place] [address] Care Team Providers Name Role Phone Jay Campos Primary Care Provider Encounter Details Date Type Department Care Team Description 09/29/2016 Telephone Otolaryngology at [facility] [place] [address] Social History Tobacco Use Types Packs/Day [...] Notes Telephone Encounter - Mildred Albert - 09/29/2016 11:37 AM EDT Left message for patient to call back to schedule 12 mo grid with ESTRELLA or ALP. Third attempt to contact, recall closed. documented in this encounter Plan of Treatment Upcoming Encounters Date Type Specialty Care Team Description 08/09/2021 Ancillary Procedure Radiology Paige Pérez MD Arrived [facility] NEUROLOGY DEPT [place], [place] [address] (Wo rk) documented as of this encounter Visit Diagnoses Not on filedocumented in this encounter Care Teams Cargo Services Coordinator Relationship Specialty Start Date End Date Jay Campos PA PCP - General General Internal Medicine 07/02/15 08/20/20 [address] [place] [address] documented as of this encounter
--- OUTSIDE RECORDS SUMMARY | 2021-08-09 11:05 | XMS_ITS | Encounter Summary ---
:1965 Author Organization [facility] [place] [address] Care Team Providers Name Role Phone Jay Campos Primary Care Provider Encounter Details Date Type Department Care Team Description 10/05/2015 Telephone Radiation Oncology at Kaycee Lewis RN [address] [phone] Social History Tobacco Use Types Packs/Day Years Used Date Current Every Day Smoker Cigarettes 0.25 15 Smokeless Tobacco: Current User Chew Comments: trying [...] this encounter Miscellaneous Notes Telephone Encounter - Kaycee Lewis RN - 10/05/2015 3:31 PM EDT Telephone call to patient to assess pain status,effect of new prescriptions as he did not stay for nursing check following his xrt today. No answer. Message left on identifiable voicemail regarding intent of this phone call with call back request including my contact information. documented in this encounter Plan of Treatment Upcoming Encounters Date Type Specialty Care Team Description 08/09/2021 Ancillary Procedure Radiology Paige Pérez MD Arrived [facility] NEUROLOG[facility] DEPT [place], [place] [address] (Wo rk) documented as of this encounter Visit Diagnoses Not on filedocumented in this encounter Care Teams Diving Judge Relationship Specialty Start Date End Date Jay Campos PA PCP - General General Internal Medicine 07/02/15 08/20/20 [address] [place] [address] documented as of this encounter
--- OUTSIDE RECORDS SUMMARY | 2021-08-09 11:05 | XMS_ITS | Encounter Summary ---
:1965 Author Organization [facility] [place] [address] Care Team Providers Name Role Phone Jay Campos Primary Care Provider Reason for Visit Reason Comments On Treatment Visit Encounter Details Date Type Department Care Team Description 10/11/2015 [facility] e[facility] [address] [place], [place] RADIATION ONCOL OGY [address] [place], [place] [phone] (Wo rk) Social History Tobacco Use Types [...] Sign Reading Time Taken Comments Blood Pressure 108/76 10/11/2015 2:00 PM EDT Pulse 70 10/11/2015 2:00 PM EDT Temperature 37.2 ??C (99 ??F) 10/11/2015 2:00 PM EDT Respiratory Rate 16 10/11/2015 2:00 PM EDT Oxygen Saturation 100% 10/11/2015 2:00 PM EDT Inhaled Oxygen Concentration - - Weight 64.5 kg (142 lb 3.2 oz) 10/11/2015 2:00 PM EDT Height - - Body Mass Index 22.95 08/13/2015 10:06 AM EDT documented in this encounter Progress Notes Gilbert Novak MD - 10/11/2015 2:45 PM EDT Images from the original note were not included. RADIATION ONCOLOGY - Weekly On Treatment Visit Note 10/11/15 Gilbert Novak MD Radiation Oncology [facility] [phone] (paging continuous dryout operator helper) PATIENT IDENTIFICATION NAME: Yash Dalton DATE OF : 1965 ONCOLOGIC SUMMARY: Yash Dalton is a 50 y.o. 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 Pathology demonstrated multiple adverse features, including gross PNI, DAVID and positive resection margins. He is receiving adjuvant radiotherapy to the left posterior neck [...] Bed Prescribed Dose 66Gy in 30 fractions Current Dose: 57.2 Gy in 26 fractions (To Tumor Bed) Float Remover Frazier from Current Plan (54, 60, and 66 Gy isodose lines shown): INTERVAL HISTORY Subjective: General - Overall feels 'good' in the sense that his pain is under better control. HEENT - Poor taste, thickened saliva. Pain: Pain score today is 0/10, carafate 4 times daily and BMX prior to meals. Has not needed morphine since Thursday. Imaging / Laboratory Studies: I have personally reviewed this patient's interval portal imaging to confirm accurate positioning and alignment which matches the patient's original approved treatment planning images. No other interval studies for review. EXAM: Constitutional: he appears well-developed and well-nourished. Anxious and in some distress. Skin: Increasing erythema, with punctate desquamation. HEENT: No mucositis or thrush. Performance Status: KPS Score ECOG Grade Definition [...] selfcare; totally confined to bed or chair IMPRESSION/PLAN Impression: Tolerating radiotherapy as anticipated. Pain and odynophagia improved with carafate, BMX and MSO4. Plan: Continue treatment as planned. Silvadene to skin Time Attestation: I certify that 5 minutes of this visit was spent face-to face, counseling this symptomatic patient to cease smoking. (Symptomatic patients are those who use tobacco having been diagnosed with a disease such as his skin cancer has been found by the [place] Surgeon General to be linked totobacco use.) documented in this encounter Miscellaneous Notes Addendum Note - Franco Rivera RN - 10/11/2015 3:22 PM EDT Addended by: FRANCO RIVERA on: 10/11/2015 03:22 PM Modules accepted: Orders documented in this encounter Plan of Treatment Upcoming Encounters Date Type Specialty Care Team Description 08/09/2021 Ancillary Procedure Radiology Paige Pérez MD Arrived [facility] NEUROLOGY DEPT [place], [place] [address] (Wo rk) documented as of this encounter Visit Diagnoses Diagnosis Head and neck cancer Malignant neoplasm of head, face, and ne ck documented in this encounter Care Teams Sample Maker Original Relationship Specialty Start Date End Date Jay Campos PA PCP - General General Internal Medicine 07/02/15 08/20/20 [address] [place] [address] documented as of this encounter
--- OUTSIDE RECORDS SUMMARY | 2021-08-09 11:05 | XMS_ITS | Encounter Summary ---
:1965 Author Organization [place] [address] Care Team Providers Name Role Phone Jay Campos Primary Care Provider Reason for Visit Reason Comments On Treatment Visit Encounter Details Date Type Department Care Team Description 10/04/2015 [facility]; [facility] Radiation dermatitis; [address] [place] [address] Mucositis due to radiation therapy [place], [place] RADIATION ONCOL OGY [address] [place], [place] [phone] (Wo rk) Social History Tobacco Use Types [...] Sign Reading Time Taken Comments Blood Pressure 113/87 10/04/2015 2:00 PM EDT Pulse 80 10/04/2015 2:00 PM EDT Temperature 37.1 ??C (98.8 ??F) 10/04/2015 2:00 PM EDT Respiratory Rate 16 10/04/2015 2:00 PM EDT Oxygen Saturation 99% 10/04/2015 2:00 PM EDT Inhaled Oxygen Concentration - - Weight 64.8 kg (142 lb 12.8 oz) 10/04/2015 2:00 PM EDT Height - - Body Mass Index 23.05 08/13/2015 10:06 AM EDT documented in this encounter Progress Notes Gilbert Novak MD - 10/04/2015 2:45 PM EDT Images from the original note were not included. RADIATION ONCOLOGY - Weekly On Treatment Visit Note 10/04/15 Gilbert Novak MD Radiation Oncology [facility] [phone] (paging digestion operator) PATIENT IDENTIFICATION NAME: Yash Dalton DATE [...] Dose 66Gy in 30 fractions Current Dose: 46.2 Gy in 21 fractions (To Tumor Bed) Desktop Support Technician Frazier from Current Plan (54, 60, and 66 Gy isodose lines shown): INTERVAL HISTORY Subjective: General - Has been feeling much worse the past week. Primary complaints are thickened saliva, poor taste, pain with swallowing and earache. HEENT - As above. Pain: Pain score today is 8/10, earache has been up to 10/10. Imaging / Laboratory Studies: I have personally reviewed this patient's interval portal imaging to confirm accurate positioning and alignment which matches the patient's original approved treatment planning images. No other interval studies for review. EXAM: Constitutional: he appears well-developed and well-nourished. Anxious and in some distress. Skin: Increasing erythema, no desquamation HEENT: No mucositis or thrush. Otoscope exam reveals clear, white TMs and no evidence of external otitis. Performance Status: KPS Score ECOG Grade Definition [...] Tolerating radiotherapy as anticipated. Pain and odynophagia are expected. Earache less, so suspect it is referred pain from radiation pharyngitis. Plan: Continue treatment as planned. Pain medications rx'ed, with recommendation that he continue ibuprofen to take with food and MSO4 10mg po prn. BMX + carafate also provided. Time Attestation: I certify that 5 minutes of this visit was spent face-to face, counseling this symptomatic patient to cease smoking. (Symptomatic patients are those who use tobacco having been diagnosed with a disease such as his skin cancer has been found by the [place] Surgeon General to be linked totobacco use.) documented in this encounter Miscellaneous Notes Addendum Note - Gilbert Novak MD - 10/04/2015 4:13 PM EDT Addended by: GILBERT NOVAK on: 10/04/2015 04:13 PM Modules accepted: Orders Addendum Note - Gilbert Novak MD - 10/04/2015 3:40 PM EDT Addended by: GILBERT NOVAK on: 10/04/2015 03:40 PM Modules accepted: Level of Service documented in this encounter Plan of Treatment Upcoming Encounters Date Type Specialty Care Team Description 08/09/2021 Ancillary Procedure Radiology Paige Pérez MD [facility]rived [facility] [place], [place] [address] (Wo rk) documented as of this encounter Visit Diagnoses Diagnosis Head and neck cancer Malignant neoplasm of head, face, and ne ck Radiation dermatitis Dermatitis due to other radiation Mucositis due to radiation therapy Mucositis (ulcerative) due to antineopla stic therapy documented in this encounter Care Teams Boom Storage Relationship Specialty Start Date End Date Jay Campos PA PCP - General General Internal Medicine 07/02/15 08/20/20 [address] [place] [address] documented as of this encounter
--- OUTSIDE RECORDS SUMMARY | 2021-08-09 11:05 | XMS_ITS | Encounter Summary ---
:1965 Author Organization [facility] [place] [address] Care Team Providers Name Role Phone Jay Campos Primary Care Provider Encounter Details Date Type Department Care Team Description 10/04/2015 Clinical Support Hematology/Oncology at Valerie Paz [facility] NHUNG Jennings [address] [place] [phone] Social History Tobacco Use Types Packs/Day Years [...] documented as of this encounter Progress Notes Valerie Paz RD - 10/04/2015 3:00 PM EDT [facility] Dietitian Follow Up Assessment Seen By: Michaela Paz, MS, RD, PRESS ROOM SUPERVISOR, LD Patient and diagnosis: Yash Dalton is a 50 y.o. 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 Assessment: HPI: Patient Active Problem List Diagnosis Code ??? 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 Neck mass R22.1 Meds: reviewed Labs: Ht: 167.6 cm Wt: 3% decr in one week; Severe Wt Readings from Last 3 Encounters: 10/04/15 64.8 kg (142 lb 12.8 oz) 09/20/15 66.8 kg (147 lb 3.2 oz) 09/06/15 66.6 kg (146 lb 12.8 oz) Wt Hx: UBW: 145 lbs % UBW: IBW: +/- 10% % IBW: BMI:23.7 ___ Edema ___ Ascites ___Muscle wasting Calorie needs: 1700 - 2000 Protein needs: 100 Fluid needs: 2 L Food Intake: Eggs and yogurt this week, which makes him sick to smell it. Am: Noon: Pm: Snacks: ice cream or cake after dinner. Eats a lot of candy during the day. Fluids: Honest Tea 3, 16.9 oz/d or water tries to get 40 oz/d, working towards 64. Supplements/Frequency: ___ Ensure/Plus ___ Boost/Plus ___ CIB- ___ Other: Teas, vitamins, or other nutritional supplements: none Food allergies or avoidances: knfa Appetite: Nausea: denies Vomiting: denies Chewing: denies Dentition: all his, doesn't see dentist regularly. Last saw one? Swallowing: denies Taste Changes: + dysgeusia, everything tastes like chalk Bowels: denies Food availability/purchasing, meal planning and preparation: He does, lives alone. Eats out a lot. Depression: Social Support: Economic Issues: The patient lives with his roommate and girlfriend in [place], [place] and previously worked as [employer]. Estimated travel time by the patient to [facility] is 20 minutes, one-way. 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 Level of Motivation/Readiness to Change: Nutrition Diagnosis: 09/14/15: Pt was unaware of appointment and left after Rt. Pc to him, the only phone listed was a mobile and hearing him was challenging. Introduced myself and role on his treatment team. Asked if we could meet next week after his treatment. He agreed to the plan. 09/21/15: Met with Yash briefly before Rt. He expressed he would like to keep visits short. Wt is stable. Denies any issues. Discussed likely s/e from RT. 09/27/15: Weight stable, intake and energy stable. Denies any issues. 10/04/15: Weight down 3% in one week. Severe. Eating only eggs and yogurt, which tastes horrible and make him gag. BMX script issued today. Instructed to take 15 min before eating. Reviewed soft, moist protien foods, high fausto shakes, Ensure Plus(12 samples given, unopened. Donated on 10/02/15 lot [id number], exp 17 Oct 2016) - needs 6/d to meet needs. Explained a g-tube could be beneficial and relieve pressure from eating. Recommended baking soda/salt rinses before eating. Nutrition Intervention: ? Increas: e caloric needs ? Modify diet consistency: ? Increase frequency of meals and snacks ? Need for supplements Nutrition Goals: Educational Handouts provided: -- CIB coupon/sample -- Ensure samples/coupon -- Oral Care -- High fausto/high pro beverage recipes -- Soft,moist protein foods Other Recommendations: ? Monitoring and Evaluation: Will follow up with Mr. Dalton in one week (s) to re-evaluate. documented in this encounter Plan of Treatment Upcoming Encounters Date Type Specialty Care Team Description 08/09/2021 Ancillary Procedure Radiology Paige Pérez MD [facility]rived [facility] [place], [place] [address] (Wo rk) documented as of this encounter Visit Diagnoses Diagnosis Dietary counseling Dietary surveillance and counseling documented in this encounter Care Teams Professional Healthcare Representative Relationship Specialty Start Date End Date Jay Campos PA PCP - General General Internal Medicine 07/02/15 08/20/20 [address] [place] [address] documented as of this encounter
--- OUTSIDE RECORDS SUMMARY | 2021-08-09 11:05 | XMS_ITS | Encounter Summary ---
:1965 Author Organization [facility] [place] [address] Care Team Providers Name Role Phone Jay Campos Primary Care Provider Reason for Visit Reason Onset Date Comments Prior Authorization 10/03/2015 Encounter Details Date Type Department Care Team Description 10/03/2015 Telephone Hematology Oncology at Jennifer Tsang Prior Authorization [facility] ISABEL Mariano [address] [place] [phone] Social History Tobacco Use Types Packs/Day [...] this encounter Miscellaneous Notes Telephone Encounter - Alma Delia Tsang RN - 10/03/2015 2:25 PM EDT Received call from Rianna at [facility]. Certified for medical necessity 30 treatments radiation from 09/05-10/18. Cert # [id number] L Vazquez notified. documented in this encounter Plan of Treatment Upcoming Encounters Date Type Specialty Care Team Description 08/09/2021 Ancillary Procedure Radiology Paige Pérez MD Arrived [facility] [place], [place] [address] (Wo rk) documented as of this encounter Visit Diagnoses Not on filedocumented in this encounter Care Teams Dewaterer Operator Relationship Specialty Start Date End Date Jay Campos PA PCP - General General Internal Medicine 07/02/15 08/20/20 [address] [place] [address] documented as of this encounter
--- OUTSIDE RECORDS SUMMARY | 2021-08-09 11:05 | XMS_ITS | Encounter Summary ---
:1965 Author Organization [facility] [place] [address] Care Team Providers Name Role Phone Jay Campos Primary Care Provider Encounter Details Date Type Department Care Team Description 08/21/2015 Hospital Encounter Laboratory [facility] [place] [address] Social History Tobacco Use Types Packs/Day [...] on file documented as of this encounter Medications at Time of Discharge Medication Sig Dispensed Refills Start Date End Date oxyCODONE 5 mg Capsule Take 1 capsule by 30 capsule 0 201508/28/2015 mouth nightly as needed for up to 15 days. ibuprofen (ADVIL;MOTRIN) Take 600 mg by mouth 0 02/13/2016 600 mg Tablet every 6 hours as needed for Pain. documented as of this encounter Plan of Treatment Not on filedocumented as of this encounter Visit Diagnoses Not on filedocumented in this encounter Care Teams City Dispatch Supervisor Relationship Specialty Start Date End Date Jay Campos PA PCP - General General Internal Medicine 07/02/15 08/20/20 [address] [place] [address] documented as of this encounter
--- OUTSIDE RECORDS SUMMARY | 2021-08-09 11:05 | XMS_ITS | Encounter Summary ---
:1965 Author Organization [facility] [place] [address] Care Team Providers Name Role Phone Jay Campos Primary Care Provider Encounter Details Date Type Department Care Team Description 12/31/2015 Telephone Otolaryngology at [facility] [place] [address] Social History Tobacco Use Types Packs/Day [...] this encounter Miscellaneous Notes Telephone Encounter - Brinda Houser - 12/31/2015 7:43 AM EST Called the patient and left a message about the appointment. documented in this encounter Plan of Treatment Upcoming Encounters Date Type Specialty Care Team Description 08/09/2021 Ancillary Procedure Radiology Paige Pérez MD Arrived [facility] NEUROLOGY DEPT [place], [place] [address] (Wo rk) documented as of this encounter Visit Diagnoses Not on filedocumented in this encounter Care Teams Administrative Program Specialist Relationship Specialty Start Date End Date Jay Campos PA PCP - General General Internal Medicine 07/02/15 08/20/20 [address] [place] [address] documented as of this encounter
--- OUTSIDE RECORDS SUMMARY | 2021-08-09 11:05 | XMS_ITS | Encounter Summary ---
:1965 Author Organization [facility] [place] [address] Care Team Providers Name Role Phone Jay Campos Primary Care Provider Encounter Details Date Type Department Care Team Description 09/27/2015 Office Visit Radiation Oncology at Gilbert Novak H ead and neck cancer [facility] [address] RADIATION ONCOL OGY [address] [place], [place] [phone] (Wo rk) Social History Tobacco Use Types [...] documented as of this encounter Progress Notes Gilbert Novak MD - 09/27/2015 3:00 PM EDT Images from the original note were not included. RADIATION ONCOLOGY - Weekly On Treatment Visit Note 09/27/15 Gilbert Novak MD Radiation Oncology [facility] [phone] (paging cutting table operator first) PATIENT IDENTIFICATION NAME: Yash Dalton DATE OF [...] Dose 66Gy in 30 fractions Current Dose: 35.2 Gy in 16 fractions (To Tumor Bed) Director Of Respiratory Therapy Frazier from Current Plan (54, 60, and 66 Gy isodose lines shown): INTERVAL HISTORY Subjective: General - No changes since last seen. Feels excellent. HEENT - Denies any discomfort or sensation of rogerio recurrence. Pain: Pain score today is 0/10. Imaging / Laboratory Studies: I have personally reviewed this patient's interval portal imaging to confirm accurate positioning and alignment which matches the patient's original approved treatment planning images. No other interval studies for review. EXAM: Constitutional: he appears well-developed and well-nourished. No distress. Skin: Increasing erythema, no desquamation HEENT: No mucositis or thrush Performance Status: KPS Score ECOG Grade Definition X 90-100 0 Fully active, able to carry on all pre-disease performance without restriction 70-80 1 Restricted in physically strenuous activity but ambulatory and able to carry out work of a light or sedentary nature, e.g., light house work, [...] chair IMPRESSION/PLAN Impression: Tolerating radiotherapy as anticipated. Plan: Continue treatment as planned. documented in this encounter Plan of Treatment Upcoming Encounters Date Type Specialty Care Team Description 08/09/2021 Ancillary Procedure Radiology Paige Pérez MD Arrived [facility] NEUROLOG[facility] DEPT [place], [place] [address] (Wo rk) documented as of this encounter Visit Diagnoses Diagnosis Head and neck cancer Malignant neoplasm of head, face, and ne ck documented in this encounter Care Teams Burrer Marker Axle Relationship Specialty Start Date End Date Jay Campos PA PCP - General General Internal Medicine 07/02/15 08/20/20 [address] [place] [address] documented as of this encounter
--- OUTSIDE RECORDS SUMMARY | 2021-08-09 11:05 | XMS_ITS | Encounter Summary ---
:1965 Author Organization [facility] [place] [address] Care Team Providers Name Role Phone Jay Campos Primary Care Provider Encounter Details Date Type Department Care Team Description 09/13/2015 Office Visit Radiation Oncology at Gilbert Novak H ead and neck cancer; [facility] Cancer with unknown primary site [address] 1080 [facility] [place], [place] RADIATION ONCOL OGY [address] [place], [place] [phone] (Wo rk) Social History Tobacco Use Types [...] encounter Progress Notes Gilbert Novak MD - 09/13/2015 3:00 PM EDT Images from the original note were not included. RADIATION ONCOLOGY - Weekly On Treatment Visit Note 09/13/15 Gilbert Novak MD Radiation Oncology [facility] [phone] (paging crowning hammer operator) PATIENT IDENTIFICATION NAME: Yash Dalton DATE [...] Dose 66Gy in 30 fractions Current Dose: 13.2 Gy in 6 fractions (To Tumor Bed) Carrot Harvester Frazier from Current Plan (54, 60, and [...] appears well-developed and well-nourished. No distress. Skin: No erythema HEENT: No mucositis or thrush Performance Status: [...] [facility] [place], [place] [address] (Wo rk) documented as of this encounter Visit Diagnoses Diagnosis Head and neck cancer Malignant neoplasm of head, face, and ne ck Cancer with unknown primary site Other malignant neoplasm without specifi cation of site documented in this encounter Care Teams Piping Engineer Relationship Specialty Start Date End Date Jay Campos PA PCP - General General Internal Medicine 07/02/15 08/20/20 [address] [place] [address] documented as of this encounter
--- OUTSIDE RECORDS SUMMARY | 2021-08-09 11:05 | XMS_ITS | Encounter Summary ---
:1965 Author Organization [facility] Address [address] [place] [address] Care Team Providers Name Role Phone Jay Campos Primary Care Provider Encounter Details Date Type Department Care Team Description 11/15/2015 Clinical Support Hematology/Oncology Valerie Paz on consulting on at [facility] NHUNG Jennings behalf of another [facility] [place] [address] Social History Tobacco Use Types Packs/Day [...] encounter Progress Notes Valerie Paz RD - 11/15/2015 2:30 PM EDT [facility] Dietitian Follow Up Assessment Seen By: Michaela Paz, MS, RD, EMAIL OPERATIONS MANAGER, LD Patient and diagnosis: Yash Dalton is a 50 y.o. 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 Assessment: HPI: Patient Active Problem List Diagnosis Code ??? 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 Neck mass R22.1 Meds: reviewed Labs: Ht: 167.6 cm Wt: 62.56 kg on 11/15/15: up. 3% decr in one week; Severe Wt Readings from Last 3 Encounters: 10/25/15 59.8 kg (131 lb 12.8 oz) 10/11/15 64.5 kg (142 lb 3.2 oz) 10/04/15 64.8 kg (142 lb 12.8 oz) Wt Hx: UBW: 145 lbs % UBW: IBW: +/- 10% % IBW: BMI:23.7 ___ Edema ___ Ascites ___Muscle wasting Calorie needs: 1700 - 2000 Protein needs: 100 Fluid needs: 2 L Food Intake: Eggs and yogurt this week, which makes him sick to smell it. Able to eat bread, pastas eggs,. Not a lot of tastes. Hambugers. Am: scr eggs, toast, coffee Noon: doesn't usually eat it. Pm: Cheese burger w/ Ensure Plus Snacks: ice cream w/ milk or yogurt after dinner. Eats a lot of candy during the day. Fluids: Honest Tea 3, 16.9 oz/d or water tries to get 40 oz/d, working towards 64. Supplements/Frequency: ___ Ensure/Plus ___ Boost/Plus - BID - with B and D. ___ CIB- ___ Other: Teas, vitamins, or other nutritional supplements: none Food allergies or avoidances: knfa Appetite: Nausea: denies Vomiting: denies Chewing: denies Dentition: all his, doesn't see dentist regularly. Last saw one? Swallowing: denies, no longer using pain meds, or BMX, or carafate Taste Changes: + dysgeusia, muted. Can't do sweet things (frosting) it gets too pasty. Bowels: denies Food availability/purchasing, meal planning and preparation: He does, lives alone. Eats out a lot. Depression: Social Support: Economic Issues: The patient lives with his roommate and girlfriend in [place], [place] and previously worked as [employer]. Estimated travel time by the patient to [place] is 20 minutes, one-way. 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 Has vacation next week and is going to the [facility]. Level of Motivation/Readiness to Change: Nutrition Diagnosis: [...] samples given, unopened. Donated on 10/02/15 lot [id number], exp 17 Oct 2016) - needs 6/d to meet needs. Explained a g-tube could be beneficial and relieve pressure from eating. Recommended baking soda/salt rinses before eating. 10/11/15: Unable to meet with pt at this encounter. Will touch base with him tomorrow before /after RT. 10/12/15: Weight is stable. He kept the visit short and naya as typical. Intake continues to be an Ensure Enlive and scr egg. No longer working. Reports pain to be managed with carafate and BMX. 11/15/15: Weight gain. Tastes are improving. Able to eat most foods, sweet frosting can be troublesome, which he enjoys oreos and cake. Looking forward to returning to work in 2 weeks. Going to vacationon the [facility] next week and his goal is to be off of Ensure by that time. Nutrition Intervention: ? Increas: e caloric needs ? Modify diet consistency: ? Increase frequency of meals and snacks ? Need for supplements Nutrition Goals: Educational Handouts provided: -- CIB coupon/sample -- Ensure samples/coupon -- Oral Care -- High fausto/high pro beverage recipes -- Soft,moist protein foods Other Recommendations: ? Monitoring and Evaluation: Will follow up with Mr. Dalton in 2-3 mos to re-evaluate, likely via PC as he is scheduled to complete RT on 10/17/15. documented in this encounter Plan of Treatment Upcoming Encounters Date Type Specialty Care Team Description 08/09/2021 Ancillary Procedure Radiology Paige Pérez MD [facility]rived [facility] [place] [address] (Wo rk) documented as of this encounter Visit Diagnoses Diagnosis Person consulting on behalf of another p erson Other person consulting on behalf of ano ther person documented in this encounter Care Teams Jewel Hole Rough Opener Relationship Specialty Start Date End Date Jay Campos PA PCP - General General Internal Medicine 07/02/15 08/20/20 [address] [place] [address] documented as of this encounter
--- OUTSIDE RECORDS SUMMARY | 2021-08-09 11:05 | XMS_ITS | Encounter Summary ---
:1965 Author Organization [facility] [place] [address] Care Team Providers Name Role Phone Jay Campos Primary Care Provider Encounter Details Date Type Department Care Team Description 09/20/2015 [facility] Cancer with unknown primary site [address] [facility] [place] RADIATION ONCOL OGY [address] [place], [place] [phone] (Wo rk) Social History Tobacco Use Types [...] Sign Reading Time Taken Comments Blood Pressure 126/86 09/20/2015 2:00 PM EDT Pulse 80 09/20/2015 2:00 PM EDT Temperature 37 ??C (98.6 ??F) 09/20/2015 2:00 PM EDT Respiratory Rate 12 09/20/2015 2:00 PM EDT Oxygen Saturation 99% 09/20/2015 2:00 PM EDT Inhaled Oxygen Concentration - - Weight 66.8 kg (147 lb 3.2 oz) 09/20/2015 2:00 PM EDT Height - - Body Mass Index 23.76 08/13/2015 10:06 AM EDT documented in this encounter Progress Notes Gilbert Novak MD - 09/20/2015 3:15 PM EDT Images from the original note were not included. RADIATION ONCOLOGY - Weekly On Treatment Visit Note 09/20/15 iGlbert Novak MD Radiation Oncology [facility] [phone] (paging barrel dedenting machine operator) PATIENT IDENTIFICATION NAME: Yash Dalton DATE [...] Dose 66Gy in 30 fractions Current Dose: 24.2 Gy in 11 fractions (To Tumor Bed) Worm Grower Frazier from Current Plan (54, 60, and [...] appears well-developed and well-nourished. No distress. Skin: Slight erythema HEENT: No mucositis or thrush Performance [...] Paige Pérez MD Arrived [facility] [place]OLOGY [place], [place] [address] (Wo rk) documented as of this encounter Visit Diagnoses Diagnosis Head and neck cancer Malignant neoplasm of head, face, and ne ck Cancer with unknown primary site Other malignant neoplasm without specifi cation of site documented in this encounter Care Teams Bleach Boiler Puller Relationship Specialty Start Date End Date Jay Campos PA PCP - General General Internal Medicine 07/02/15 08/20/20 [address] [place] [address] documented as of this encounter
--- OUTSIDE RECORDS SUMMARY | 2021-08-09 11:05 | XMS_ITS | Encounter Summary ---
:1965 Author Organization [facility] [place] [address] Care Team Providers Name Role Phone Jay Campos Primary Care Provider Reason for Referral Diagnostic Test (Routine) - Closed Specialty Diagnoses / Procedures Referred By Contact Refer red To Contact Radiology Diagnoses Adenopathy Ric Wise MD [facility] Rad Ct Scan Procedures CT Neck Soft Tissue With Contrast (GENERIC) [facility] [place] [address] [place] [address] Referral ID Status Reason Start Date Expiration Date Visits V isits Requested Authorized [id number] Closed Specialty 07/02/2015 07/01/2016 1 1 Service Requested Reason for Visit Diagnostic Test (Routine) - Closed Specialty Diagnoses / Procedures Referred By Contact Refer red To Contact Radiology Diagnoses Adenopathy Ric Wise MD [facility] Rad Ct Scan Procedures CT Neck Soft Tissue With Contrast (GENERIC) [facility] [place] [address] [place] [address] Referral ID Status Reason Start Date Expiration Date Visits V isits Requested Authorized [id number] Closed Specialty 07/02/2015 07/01/2016 1 1 Service Requested Encounter Details Date Type Department Care Team Description 07/12/[address] Scan at [facility] Leonardo Hansen Adenopathy [facility] [place] [phone] OTOLARYNGOLOGY D EPT. [place], [place] [address] (Wo rk) Social History Tobacco Use Types Packs/Day Years Used Date Current Every Day Smoker Cigarettes 0.25 15 Smokeless Tobacco: Current User Chew Comments: Pt states he Chews more than h e smokes Sex Assigned at Date Recorded Not on file documented as of this encounter Medications at Time of Discharge Medication Sig Dispensed Refills Start Date End Date oxyCODONE (ROXICODONE) 5 Take 1 tablet by 30 tablet 0 07/1907/26/2015 mg Tablet mouth every 4 hours as needed for Pain. documented as of this encounter Plan of Treatment Not on filedocumented as of this encounter Procedures Procedure Name Priority Date/Time Associated Diagnosis Comme nts CT NECK SOFT TISSUE Routine 07/12/2015 2:49 PM Adenopathy Re sults for this W CONTRAST EDT procedure are i n the results section. documented in this encounter Results CT Neck Soft Tissue With Contrast (GENERIC) (07/12/2015 2:49 PM EDT) Anatomical Region Laterality Modality Neck, Head Computed Tomography Specimen (Source) Anatomical Location Collection Method / Collectio n Time Received Time / Laterality Volume Impressions 07/12/2015 3:51 PM EDT 1. ??Heterogeneous spiculated enhancing mass within the left posterior triangle with appearance most consistent with mal ignancy. Differential diagnosis includes squamous cell carcinoma, basal cell carc inoma, and metastasis 2. ??No other mass or cervical lymphaden opathy. I have personally reviewed the image(s) and the residents interpretation and agree with the findings, Herberth Ramsay at 07/12/2015 3:51 PM Narrative 07/12/2015 3:51 PM EDT EXAMINATION: CT NECK SOFT TISSUE WITH CONTRAST CLINICAL HISTORY: Left indurated neck ma ss in posterior triangle overlying anterior border trapezius TECHNIQUE: CT neck soft tissue with cont rast. Coronal and sagittal reformatted images were obtained. COMPARISON: None FINDINGS: Within the subcutaneous tissue of the po sterior triangle of the left neck anterior to the trapezius and posterior to the SCM there is an irregularly marginated heterogeneous enhancing mass measuring approximately 1.5 x 1.5 x 1.5 cm (series 3 image 203 and series 601 im age 77). Spicule along its lateral margin extending to inner indistinguisha ble from the dermis. There are scattered nonpathologically enlarged cervical lymp h nodes bilaterally. No other cervical masses visualized. There appears to been no vascular involvement. The parotid, submandibular and submental glands are w ithin normal limits. No suspicious sclerotic or lytic osseous abnormalities . The visualized aerodigestive tract is within normal limits. The partially visualized intracranial co ntents are within normal limits. The partially visualized lung apices are obie ar. Mucosal thickening within the right maxillary sinus and mild thickening with in the ethmoid air cells. The remaining paranasal sinuses and mastoid air cells are clear. The orbits are within normal limits. Mild cervical spondylosis most prominent at the C5-6 vertebral levels with endplate degenerative changes. Procedure Note Herberth Ramsay MD - 07/12/2015Format ting of this note might be different from the original. EXAMINATION: CT NECK SOFT TISSUE WITH CO NTRAST CLINICAL HISTORY: Left indurated neck ma ss in posterior triangle overlying anterior border trapezius TECHNIQUE: CT neck soft tissue with cont rast. Coronal and sagittal reformatted images were obtained. COMPARISON: None FINDINGS: Within the subcutaneous tissue of the po sterior triangle of the left neck anterior to the trapezius and posterior to the SCM there is an irregularly marginated heterogeneous enhancing mass measuring approximately 1.5 x 1.5 x 1.5 cm (series 3 image 203 and series 601 im age 77). Spicule along its lateral margin extending to inner indistinguisha ble from the dermis. There are scattered nonpathologically enlarged cervical lymp h nodes bilaterally. No other cervical masses visualized. There appears to been no vascular involvement. The parotid, submandibular and submental glands are w ithin normal limits. No suspicious sclerotic or lytic osseous abnormalities . The visualized aerodigestive tract is within normal limits. The partially visualized intracranial co ntents are within normal limits. The partially visualized lung apices are obie ar. Mucosal thickening within the right maxillary sinus and mild thickening with in the ethmoid air cells. The remaining paranasal sinuses and mastoid air cells are clear. The orbits are within normal limits. Mild cervical spondylosis most prominent at the C5-6 vertebral levels with endplate degenerative changes. IMPRESSION 1. Heterogeneous spiculated enhancing ma ss within the left posterior triangle with appearance most consistent with mal ignancy. Differential diagnosis includes squamous cell carcinoma, basal cell carc inoma, and metastasis 2. No other mass or cervical lymphadenop athy. I have personally reviewed the image(s) and the residents interpretation and agree with the findings, Herberth Ramsay at 07/12/2015 3:51 PM Authorizing Provider Result Deja Hansen MD IMG CT ORDERABLES documented in this encounter Visit Diagnoses Diagnosis Adenopathy Enlargement of lymph nodes documented in this encounter Administered Medications Inactive Administered Medications - up to 3 most recent administrations Medication Order MAR Action Action Date Dose Rate Site iohexol (OMNIPAQUE) 350 mg/mL Given 07/12/2015 2:44 PM EDT 38,50 0 mg solution 38,500 mg 38,500 mg (110 mL), Intravenous, ONCE PRN, 1 dose, Starting on Lali 07/12/15 at 1437, Until Lali 07/12/15 at 1444, Per Protocol, Routine documented in this encounter Care Teams Brick Paving Checker Relationship Specialty Start Date End Date Jay Campos PA PCP - General General Internal Medicine 07/02/15 08/20/20 [address] [place] [address] documented as of this encounter
--- OUTSIDE RECORDS SUMMARY | 2021-08-09 11:05 | XMS_ITS | Encounter Summary ---
:1965 Author Organization [facility] [place] [address] Care Team Providers Name Role Phone Jay Campos Primary Care Provider Reason for Visit Reason Comments On Treatment Visit Encounter Details Date Type Department Care Team Description 09/06/2015 [facility] [address] [place], [place] RADIATION ONCOL OGY [address] [place], [place] [phone] (Wo rk) Social History Tobacco Use Types [...] Sign Reading Time Taken Comments Blood Pressure 128/85 09/06/2015 3:00 PM EDT Pulse 65 09/06/2015 3:00 PM EDT Temperature 37.1 ??C (98.8 ??F) 09/06/2015 3:00 PM EDT Respiratory Rate 12 09/06/2015 3:00 PM EDT Oxygen Saturation 100% 09/06/2015 3:00 PM EDT Inhaled Oxygen Concentration - - Weight 66.6 kg (146 lb 12.8 oz) 09/06/2015 3:00 PM EDT Height - - Body Mass Index 23.69 08/13/2015 10:06 AM EDT documented in this encounter Progress Notes Gilbert Novak MD - 09/06/2015 3:00 PM EDT Images from the original note were not included. RADIATION ONCOLOGY - Weekly On Treatment Visit Note 09/06/15 Gilbert Novak MD Radiation Oncology [facility] [phone] (paging fuel distribution system operator) PATIENT IDENTIFICATION NAME: Yash Dalton DATE [...] Dose 66Gy in 30 fractions Current Dose: 2.2 Gy in 1 fraction (To Tumor Bed) Production Pattern Maker Frazier from Current Plan (54, 60, and 66 Gy isodose lines shown): INTERVAL HISTORY Subjective: General - No changes since last seen. Started today. HEENT - Denies any discomfort or sensation of rogerio recurrence. Pain: Pain score today is 0/10. Imaging / Laboratory Studies: I have personally reviewed this patient's interval portal imaging to confirm accurate positioning and alignment which matches the patient's original approved treatment planning images. No other interval studies for review. EXAM: BP 128/85 Pulse 65 Temp 37.1 ??C (98.8 ??F) Resp 12 Wt 66.6 kg (146 lb 12.8 oz) SpO2 100% BMI 23.69 kg/m2 Constitutional: he appears well-developed and well-nourished. No [...] documented in this encounter Plan of Treatment Not on filedocumented as of this encounter Visit Diagnoses Diagnosis Head and neck cancer Malignant neoplasm of head, face, and ne ck documented in this encounter Care Teams Driver Courier Relationship Specialty Start Date End Date Jay Campos PA PCP - General General Internal Medicine 07/02/15 08/20/20 [address] [place] [address] documented as of this encounter
--- OUTSIDE RECORDS SUMMARY | 2021-08-09 11:05 | XMS_ITS | Encounter Summary ---
:1965 Author Organization [facility] [address] Care Team Providers Name Role Phone Jay Campos Primary Care Provider Encounter Details Date Type Department Care Team Description 10/11/2015 Clinical Support Hematology/Oncology at Valerie Paz [facility] NHUNG Jennings [address] [place] [phone] Social History Tobacco Use Types Packs/Day [...] encounter Progress Notes Valerie Paz RD - 10/11/2015 2:45 PM EDT [facility] Dietitian Follow Up Assessment Seen By: Michaela Paz, MS, RD, DISABILITIES SERVICES OFFICER, LD Patient and diagnosis: Yash Dalton is a 50 y.o. 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 Assessment: HPI: Patient Active Problem List Diagnosis Code ??? 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 Neck mass R22.1 Meds: reviewed Labs: Ht: 167.6 cm Wt: 3% decr in one week; Severe Wt Readings from Last 3 Encounters: 10/11/15 64.5 kg (142 lb 3.2 oz) 10/04/15 64.8 kg (142 lb 12.8 oz) 09/20/15 66.8 kg (147 lb 3.2 oz) Wt Hx: UBW: 145 lbs % [...] lives with his roommate and girlfriend in [place], [place] and previously worked as [employer]. Estimated travel time by the patient to [facility] is 20 minutes, one-way. Smoking: smokes 5 [...] samples given, unopened. Donated on 10/02/15 lot [id number], exp 17 Oct 2016) - needs 6/d to meet needs. Explained a g-tube could be beneficial and relieve pressure from eating. Recommended baking soda/salt rinses before eating. : Unable to meet with pt at this encounter. Will touch base with him tomorrow before /after RT. Nutrition Intervention: ? Increas: e caloric needs ? Modify diet consistency: ? Increase frequency of meals and snacks ? Need for supplements Nutrition Goals: Educational Handouts provided: -- CIB coupon/sample -- Ensure samples/coupon -- Oral Care -- High fausto/high pro beverage recipes -- Soft,moist protein foods Other Recommendations: ? Monitoring and Evaluation: Will follow up with Mr. Dalton in one day week (s) to re-evaluate. documented in this encounter Plan of Treatment Upcoming Encounters Date Type Specialty Care Team Description 08/09/2021 Ancillary Procedure Radiology Paige Pérez MD Arrived [facility] [place], [place] [address] (Wo rk) documented as of this encounter Visit Diagnoses Diagnosis Dietary counseling Dietary surveillance and counseling documented in this encounter Care Teams Superintendent Production Relationship Specialty Start Date End Date Jay Campos PA PCP - General General Internal Medicine 07/02/15 08/20/20 [address] [place] [address] documented as of this encounter
--- OUTSIDE RECORDS SUMMARY | 2021-08-09 11:05 | XMS_ITS | Encounter Summary ---
:1965 Author Organization [facility] [place] [address] Care Team Providers Name Role Phone Jay Campos Primary Care Provider Encounter Details Date Type Department Care Team Description 08/21/2015 Hospital Encounter Laboratory [facility] [place] [phone] Social History Tobacco Use Types Packs/Day [...] Procedure Name Priority Date/Time Associated Diagnosis Comme [facility] SURGICAL PATHOLOGY Routine 08/21/2015 10:42 AM Niyah hollis for this REPORT EDT procedure are i n the results section. documented in this encounter Results Surgical Pathology Report (08/21/2015 10:42 AM EDT) Component Value Ref Test Analysis Performed At Patholo gist Range Method Time Signature Surgical [id number] ?Location: [address] [place] [address] Report The signing pathologist has (i) examined the relevant preparation(s) for the [facility] specimen(s) and (ii) rendered or confirmed the diagnosis(es) . HOSPITAL [facility]ORY . ?Surgic al Pathology DIAGNOSIS ? ARCHIVAL CASE Please see addendum report for case [id number] for testing r esults. Please also see Specimen Submitted and Gross Merlin cription below for additional information on this archival request. Electronically signed by: ??Sourav FARRIS, Una Johnson Verified: ??12/31/2015 ?Pathologist CLINICAL INFORMATION Specimen Submitted: Retrieved from archives on 08/21/2015 for testing: Case [id number] block D6 SPECIMEN PROCESSING At the request of Leonardo ware MD, this is ordered at this time for the purpose of performing IHC. Specimen (Source) Anatomical Collection Method Collection Time Re ceived Time Location / / Volume Laterality 08/21/2015 10:42 AM EDT Leonardo Hansen MD PATHOLOGY/CYTOLOGY ORDERABLE S Performing Organization Address City/State/[place] [address] documented in this encounter Visit Diagnoses Not on filedocumented in this encounter Care Teams Freight Claim Investigator Relationship Specialty Start Date End Date Jay Campos PA PCP - General General Internal Medicine 07/02/15 08/20/20 [address] [place] [address] documented as of this encounter
--- OUTSIDE RECORDS SUMMARY | 2021-08-09 11:05 | XMS_ITS | Encounter Summary ---
:1965 Author Organization [facility] [place] [address] Care Team Providers Name Role Phone Jay Campos Primary Care Provider Encounter Details Date Type Department Care Team Description 12/19/2015 [facility]phone [facility] [place] [place] [address] Social History Tobacco Use Types Packs/Day [...] this encounter Miscellaneous Notes Telephone Encounter - Ramila May - 12/19/2015 10:42 AM EDT Lm for pt to come in for f/u. He is over due documented in this encounter Plan of Treatment Upcoming Encounters Date Type Specialty Care Team Description 08/09/2021 Ancillary Procedure Radiology Paige Pérez MD Arrived [facility] [place], [place] [address] (Wo rk) documented as of this encounter Visit Diagnoses Not on filedocumented in this encounter Care Teams Cane Flume Watchman Relationship Specialty Start Date End Date Jay Campos PA PCP - General General Internal Medicine 07/02/15 08/20/20 [address] [place] [address] documented as of this encounter
--- OUTSIDE RECORDS SUMMARY | 2021-08-09 11:05 | XMS_ITS | Encounter Summary ---
:1965 Author Organization [facility] [place] [address] Care Team Providers Name Role Phone Jay Campos Primary Care Provider Encounter Details Date Type Department Care Team Description 10/25/2015 [facility] [address] [place] [address] RADIATION ONCOL OGY [address] [place], [place] [phone] (Wo rk) Social History Tobacco Use Types [...] Sign Reading Time Taken Comments Blood Pressure 113/89 10/25/2015 2:00 PM EDT Pulse 96 10/25/2015 2:00 PM EDT Temperature 37 ??C (98.6 ??F) 10/25/2015 2:00 PM EDT Respiratory Rate 16 10/25/2015 2:00 PM EDT Oxygen Saturation 99% 10/25/2015 2:00 PM EDT Inhaled Oxygen Concentration - - Weight 59.8 kg (131 lb 12.8 oz) 10/25/2015 2:00 PM EDT Height - - Body Mass Index 21.27 08/13/2015 10:06 AM EDT documented in this encounter Progress Notes Gilbert Novak MD - 10/25/2015 2:15 PM EDT Images from the original note were not included. RADIATION ONCOLOGY - Skin Check Visit Note 10/25/15 Gilbert Novak MD Radiation Oncology [facility] [phone] (paging hog operator) PATIENT IDENTIFICATION NAME: Yash Dalton DATE OF : 1965 ONCOLOGIC SUMMARY: Yash Dalton is a 50 y.o. 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 Pathology demonstrated multiple adverse features, including gross PNI, DAVID and positive resection margins. He recently completed adjuvant radiotherapy to the left posterior neck [...] in 30 fractions Treatment completion date 10/17/15 Casino Change Attendant Frazier from Current Plan (54, 60, and 66 Gy isodose lines shown): INTERVAL HISTORY Subjective: Overall feels better but ongoing primary complaints of dysgeusia. Pain: Pain score today is 0/10, has not needed morphine for almost a whole week. Imaging / Laboratory Studies: I have personally reviewed this patient's interval portal imaging to confirm accurate positioning and alignment which matches the patient's original approved treatment planning images. No other interval studies for review. EXAM: Constitutional: he appears well-developed and well-nourished. Performance Status: KPS Score ECOG Grade Definition 90-100 0 Fully active, able to carry on all pre-disease performance without restriction X 70-80 1 Restricted in physically strenuous activity but ambulatory and able to carry out work of [employer] or sedentary nature, e.g., light house work, [...] confined to bed or chair IMPRESSION/PLAN Impression: Recovering from radiotherapy as anticipated. Plan: RV end of month for return to work clearance. documented in this encounter Plan of Treatment Upcoming Encounters Date Type Specialty Care Team Description 08/09/2021 Ancillary Procedure Radiology Paige Pérez MD Arrived [facility] NEUROLOGY DEPT [place], [place] [address] (Wo rk) documented as of this encounter Visit Diagnoses Diagnosis Head and neck cancer Malignant neoplasm of head, face, and ne ck documented in this encounter Care Teams State Editor Relationship Specialty Start Date End Date Jay Campos PA PCP - General General Internal Medicine 07/02/15 08/20/20 [address] [place] [address] documented as of this encounter
--- OUTSIDE RECORDS SUMMARY | 2021-08-09 11:05 | XMS_ITS | Encounter Summary ---
:1965 Author Organization [facility] [place] [address] Care Team Providers Name Role Phone Jay Campos Primary Care Provider Encounter Details Date Type Department Care Team Description 09/27/2015 Clinical Support Hematology/Oncology at Valerie Paz [facility] NHUNG Jennings [address] [place] [phone] Social History Tobacco Use Types Packs/Day [...] encounter Progress Notes Valerie Paz RD - 09/27/2015 2:00 PM EDT [facility] Dietitian Follow Up Assessment Seen By: Michaela Paz, MS, RD, RAW SILK GRADER, LD Patient and diagnosis: Yash Dalton is a 50 y.o. 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 Assessment: HPI: Patient Active Problem List Diagnosis Code ??? 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 Neck mass R22.1 Meds: reviewed Labs: Ht: 167.6 cm Wt: Wt Readings from Last 3 Encounters: 09/20/15 66.8 kg (147 lb 3.2 oz) 09/06/15 66.6 kg (146 lb 12.8 oz) 08/13/15 66.2 kg (146 lb) Wt Hx: UBW: 145 lbs % UBW: IBW: +/- 10% % IBW: BMI:23.7 ___ Edema ___ Ascites ___Muscle wasting Calorie needs: 1700 - 2000 Protein needs: 100 Fluid needs: 2 L Food Intake: Am: orange blossom muffin, sausage, egg, cheese bagel Noon: doesn't do this Pm: cheeseburger and fries. T-bone steaks Snacks: ice cream or cake after dinner. Eats a lot of candy during the day. Fluids: Honest Tea 3, 16.9 oz/d or water tries to get 40 oz/d, working towards 64. Supplements/Frequency: ___ Ensure/Plus ___ Boost/Plus ___ CIB ___ Other: Teas, vitamins, or other nutritional supplements: none Food allergies or avoidances: knfa Appetite: Nausea: denies Vomiting: denies Chewing: denies Dentition: all his, doesn't see dentist regularly. Last saw one? Swallowing: denies Taste Changes: denies Bowels: denies Food availability/purchasing, meal planning and preparation: He does, lives alone. Eats out a lot. Depression: Social Support: Economic Issues: The patient lives with his roommate and girlfriend in [place], [place] and previously worked as [employer]. Estimated travel time by the patient to [facility] is 20 minutes, one-way. Smoking: smokes 5 [...] intake and energy stable. Denies any issues. Nutrition Intervention: ? Increas: e caloric needs ? Modify diet consistency: ? Increase frequency of meals and snacks ? Need for supplements Nutrition Goals: Educational Handouts provided: Other Recommendations: ? Monitoring and Evaluation: Will follow up with Mr. Dalton in one week (s) to re-evaluate. documented in this encounter Plan of Treatment Upcoming Encounters Date Type Specialty Care Team Description 08/09/2021 Ancillary Procedure Radiology Paige Pérez MD Arrived [facility] [place], [place] [address] (Wo rk) documented as of this encounter Visit Diagnoses Diagnosis Dietary counseling Dietary surveillance and counseling documented in this encounter Care Teams Psychometrician Relationship Specialty Start Date End Date Jay Campos PA PCP - General General Internal Medicine 07/02/15 08/20/20 [address] [place] [address] documented as of this encounter
--- OUTSIDE RECORDS SUMMARY | 2021-08-09 11:05 | XMS_ITS | Encounter Summary ---
:1965 Author Organization [facility] [place] [address] Care Team Providers Name Role Phone Jay Campos Primary Care Provider Encounter Details Date Type Department Care Team Description 01/30/2016 Office Visit Radiation Oncology at [facility] H ead and neck cancer [facility] [address] RADIATION ONCOL OGY [address] [place], [place] [phone] (Wo rk) Social History Tobacco Use Types [...] encounter Progress Notes Gilbert Novak MD - 01/30/2016 3:00 PM EST Images from the original note were not included. 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 It was suggested yesterday that he stop applying these creams and instead use hydrocortisone. Itching has resolved today but he notes presence of small raised lesions at the bottom of his hair line. He also reports ~1 mo h/o left shoulder pain, primarily with abduction andelevation, which is worse with cold weather. Pain: Pain score today is 4/10. Imaging / Laboratory Studies: I have personally reviewed this patient's interval portal imaging to confirm accurate positioning and alignment which matches the patient's original approved treatment planning images. No other interval studies for review. EXAM: Constitutional: he appears well-developed and well-nourished, in good spirits. Skin: Multiple small, firm and non-tender sq nodules throughout the left upper neck and along the posterior neck line. These are dispersed in the area of extreme pruritis. Neurologic: No point tenderness along the shoulder. No decrease in strength or sensation in the LUE. Performance Status: KPS Score ECOG Grade Definition [...] confined to bed or chair IMPRESSION/PLAN Impression: Likely hypersensitive reaction accounts for the pruritis; however the SQ nodules and left shoulder pain warrant closer follow-up. Plan: PET CT, f/u afterwards or sooner prn. He is to contact us on 02/11 to report on whether the nodules have regressed or persist since stopping the silvadene. If they persist, will refer for biopsy. His appt with Dr. Hansen was cancelled, will assist him with rescheduling. Time Attestation: I entered the patient's exam room at 3:05 and exited at 3:20. Thus, 15 minutes of this 25 minute face-to face visit was spent counseling the patient and answering his questions on treatment options as outlined in my assessment and plan. documented in this encounter Plan of Treatment Upcoming Encounters Date Type Specialty Care Team Description 08/09/2021 Ancillary Procedure Radiology Paige Pérez MD Arrived [facility] ER NEUROLOGY DEPT [place], [place] [address] (Wo rk) documented as of this encounter Visit Diagnoses Diagnosis Head and neck cancer Malignant neoplasm of head, face, and ne ck documented in this encounter Care Teams Playground Equipment Erector Relationship Specialty Start Date End Date Jay Campos PA PCP - General General Internal Medicine 07/02/15 08/20/20 [address] [place] [address] documented as of this encounter
--- OUTSIDE RECORDS SUMMARY | 2021-08-09 11:05 | XMS_ITS | Encounter Summary ---
:1965 Author Organization [facility] [place] [address] Care Team Providers Name Role Phone Jay Campos Primary Care Provider Reason for Referral Diagnostic Test (Routine) - Closed Specialty Diagnoses / Procedures Referred By Contact Refer red To Contact Radiology Diagnoses Adenopathy Ric Wise MD [facility] Rad Ct Scan Procedures CT Neck Soft Tissue With Contrast (GENERIC) [facility] [place] [address] [place] [address] Referral ID Status Reason Start Date Expiration Date Visits V isits Requested Authorized [id number] Closed Specialty 07/02/2015 07/01/2016 1 1 Service Requested Reason for Visit Reason Comments Neck Mass LT neck mass x 8months, FNA done Encounter Details Date Type Department Care Team Description 07/02/2015 Office Visit Otolaryngology at [facility] Leonardo Hansen, Adenopathy [facility] [place] [address] [facility] [phone] OTOLARYNGOLOGY D EPT. [place], [place] [address] (Wo rk) Social History Tobacco Use Types Packs/Day Years Used Date Current Every Day Smoker Cigarettes 0.25 15 Smokeless Tobacco: Current User Chew Tobacco Cessation: Ready to Quit: No Comments: Pt states he Chews more than h e smokes Sex Assigned at Date Recorded Not on file documented as of this encounter Last Filed Vital Signs Vital Sign Reading Time Taken Comments Blood Pressure - - Pulse - - Temperature - - Respiratory Rate - - Oxygen Saturation - - Inhaled Oxygen Concentration - - Weight 66.8 kg (147 lb 3.2 oz) 07/02/2015 2:59 PM EDT Height 170.2 cm (5' 7) 07/02/2015 2:59 PM EDT Body Mass Index 23.05 07/02/2015 2:59 PM EDT documented in this encounter Progress Notes Leonardo Hansen MD - 07/02/2015 6:42 PM EDT Attending note: Patient seen and examined with the above resident. I have reviewed and agree with the history, physical, and assessment and plan. I was present and supervised the flexible fiberoptic laryngoscopy. Leonardo Hansen MD FACS Otolaryngology - Head & Neck Surgery Ric Wise MD - 07/02/2015 3:15 PM EDT [facility] Otolaryngology - Head & Neck Surgery NEW PATIENT CONSULTATION Primary Care Physician:OFELIA JUAREZ Consult requested by:None Date:07/02/2015 ENT Attending:Dr. Hansen Reason for consultation: Left neck mass History present illness: History obtained through patient interview, review of relevant records, and/or discussion with referring provider. Yash Dalton is a 50 y.o. male presenting with posterior triangle left neck mass x 8 months. Seen by Jeremy Neal MD who performed FNA biopsy of the mass; results in EDH and referred to [facility] for further evaluation. Also noted to have left TM retraction on exam by Dr. Neal. First noted the lump 9 months ago, it has not changed in size; it does not bother him; He denies increase in size; it is pretty stable. Non-tender. No pain or limitation on neck ROM. Endorses some paresthesias that overlie the mass and radiate to the area under the earlobe. History of 'benign tumor' of the parietal scalp--he thinks it was a basal tumor. -- cutaneous/subcutaneous tumor that was radiated, no surgery; Performed at [facility]. 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 Past medical history: Patient Active Problem List Diagnosis Code ??? 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 Marital status: Single Spouse name: N/A ??? Number of children: N/A ??? Years of education: N/A Occupational History ??? Not on file. Social History Main Topics ??? Smoking status: Current Every Day Smoker Packs/day: 0.25 Years: 15.00 Types: Cigarettes ??? Smokeless tobacco: Current User Types: Chew Comment: Pt states he Chews more than he smokes ??? Alcohol use: Not on file ??? Drug use: Not on file ??? Sexual activity: Not on file Other Topics Concern ??? Not on file Social History Narrative ??? No narrative on file [place] in : [place] [address] Family history: No known history of head and neck cancer Medications: No outpatient encounter prescriptions on file as of 07/02/2015. No facility-administered encounter medications on file as of 07/02/2015. Allergies: Allergies as of 07/02/2015 ??? (No Known Allergies) Exam: Vitals: Height 170.2 cm (5' 7), weight 66.8 kg (147 lb 3.2 oz). GENERAL: Well developed, well appearing, no acute distress. HEAD/FACE/EYES: Normocephalic with no gross deformity. Extraocular movements intact. SALIVARY: Parotid and submandibular glands are normal to inspection and palpation. EARS: Normal exam of the external ear, ear canal, and middle ear. Left EAC with subcutaneous smooth-appearing nodule, no signs of infection or ulceration. Left TM retraction pocket. NOSE: Normal external nasal exam. Septum is deviated Turbinates are normal. ORAL CAVITY: Normal exam of oral tongue Normal mucosa without lesion Floor of mouth is soft. Dentition Poor, various teeth missing; s/p fillings in multiple molar teeth; gingival recession OROPHARYNX: Normal tonsils. Normal soft palate and uvula. Normal posterior pharyngeal wall. NECK: Left posterior triangle firm, very indurated 2 cm mass on anterior border of trapezius, mass appearsfixed to underlying tissues; non-tender to palpation; overlying skin appears normal. No adenopathy otherwise. Normal thyroid. RESPIRATORY: Normal voice. No stridor. Normal respirations. CV: Normal carotid pulses. SKIN: Normal skin survey of the head and neck region. Previous radiation site left of vertex on scalp appears well-healed. MUSCULOSKELETAL: Normal neck range of motion. No trismus. NEURO/PSYCH: Normal affect. Alert and oriented x 3. Responds appropriately to questions. CN II-XII grossly intact. Procedure Note: (I performed the procedure in conjunction with the attending physician) The patient was topically anesthesized and decongested in bilateral nares with 1:1 lidocaine and privine. A flexible scope was then passed into the nare. Findings: - normal nasal mucosa; septal spur on right; mild lymphoid tissue on posterior nasopharynx; cobblestoning diffusely - nasopharynx with mild mucus drainage; no masses - vallecula has 5 mm mucosa-covered smooth nodule left of median glossoepiglottic fold w/ appearancemucus retention cyst - normal appearing epiglottis - normal appearing vocal cords with symmetric movemement bilaterally - normal appearing piriform sinuses Radiology: Neck CT: None Pathology: FNA left neck mass: low cellularity sample, containing...cells, possibly of parotid acinar derivation..no evidence of metastatic carcinoma... Assessment: Left posterior triangle neck mass, very indurated with indeterminate FNA cytology. This could represent malignancy given the induration and fixed nature of the mass; could represent metastatic disease from the skin, temporal bone, nasopharynx. Would like to evaluate further with CT neck contrast, and then plan for surgical excision +/- additional interventions pending CT results. Recommendations/Plan: CT neck Follow up in Clinic after CT for discussion of surgery documented in this encounter Plan of Treatment Not on filedocumented as of this encounter Results CT Neck Soft Tissue [...] findings, Herberth Ramsay at 07/12/2015 3:51 PM Leonardo A Paydarfar MD IMG CT ORDERABLES documented in this encounter Visit Diagnoses Diagnosis Adenopathy Enlargement of lymph nodes Adenopathy Enlargement of lymph nodes documented in this encounter Care Teams Multimedia Project Manager Relationship Specialty Start Date End Date Jay Campos PA PCP - General General Internal Medicine 07/02/15 08/20/20 [address] [place] [address] documented as of this encounter
--- OUTSIDE RECORDS SUMMARY | 2021-08-09 11:05 | XMS_ITS | Encounter Summary ---
:1965 Author Organization [facility] [place] [address] Care Team Providers Name Role Phone Jay Campos Primary Care Provider Reason for Visit Reason Comments Simulation Encounter Details Date Type Department Care Team Description 08/22/2015 [facility] Cancer with unknown primary site [address] [place], [place] RADIATION ONCOL OGY [address] [place], [place] [phone] (Wo rk) Social History Tobacco Use Types [...] Sign Reading Time Taken Comments Blood Pressure 126/78 08/22/2015 1:00 PM EDT Pulse 67 08/22/2015 1:00 PM EDT Temperature 37.3 ??C (99.1 ??F) 08/22/2015 1:00 PM EDT Respiratory Rate 12 08/22/2015 1:00 PM EDT Oxygen Saturation 99% 08/22/2015 1:00 PM EDT Inhaled Oxygen Concentration - - Weight - - Height - - Body Mass Index - - documented in this encounter Progress Notes Gilbert Novak MD - 08/22/2015 3:10 PM EDT Radiation Oncology Established Patient Followup [place] [address] Patient Identification: Yash Dalton is a 50 y.o. 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 For details regarding initial presentation please refer to my consultation note dated 08/13/15. INTERVAL HISTORY / REVIEW OF SYSTEMS Since last seen, Mr. Dalton's case was discussed with head and neck tumor board with further review specifically from our colleagues in pathology. Based on conversations with Rafat Chapin and Marek the feeling is that the resected node represents a metastasis from cutaneous rather than a mucosalprimary. The implications of this were discussed with the patient today in clinic. He asked several appropriate questions. Primarily, we discussed that the use of chemotherapy is not routine in this situation, nor is comprehensive mucosal and bilateral neck radiotherapy indicated. Factors that would sometimes lead to the use of chemotherapy for a mucosal primary, such as extranodal extent, positive margins, or perineural invasion are not routinely felt to be applicable to cancers of cutaneous primary. For this reason, informed consent was obtained today from the patient to treat the ipsilateral neck without planned concurrent chemotherapy. Review of Systems: On further questioning, Mr. Dalton states that he feels to be in his usual state of health. He is curious to know whether he will be able to work throughout radiotherapy. The remainder of review is otherwise negative as documented on a patient questionnaire which has been scanned into eD. EXAM BP 126/78 Pulse 67 Temp 37.3 ??C (99.1 ??F) Resp 12 SpO2 99% Constitutional: he appears well-developed and well-nourished. No distress. 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 Plan: I discussed a course of adjuvant radiotherapy to the left neck consisting of a dose of 50-60 Gy to the uninvolved neck levels 2 through 5 and a simultaneous integrated boost to the area of tumor bed with small areas of boost to 66 Gy to regions of positive margin. The course of the accessory nerve will also be traced back to the jugular foramen given the gross perineural involvement noted on pathology. Time Attestation: I certify that at least 30 minutes of this 40 minute face-to face visit was spent counseling the patient and answering his questions on treatment options as outlined in my assessment and plan. Vazquez, Elizabeth Johns RN - 08/22/2015 1:46 PM EDT Section of Radiation Oncology Contrast Information Safety Questions 1. Has the patient ever had an x-ray study before which involved injection of a contrast agent or x-ray dye? yes If yes, did the patient have any reaction to the injection? no If yes, please describe the reaction: na 2. Is the patient allergic to any foods, medicines, or other substances? no No Known Allergies 3. Has the patient received any contrast within the past 48 hours? no 4. Does the patient have any procedures scheduled in the next 48 hours? no 5. Does the patient have a history of kidney disease or kidney problems? no 6. Does the patient have a history of asthma? no 7. Does the patient have a history of multiple myeloma? no 8. Does the patient have diabetes? no 9. Is the patient currently taking or have they ever taken glucophage or metformin? [x} No If yes, when was last dose taken? na 10. Has the patient had a creatinine level drawn within the past 30 day? yes If no, when will it be drawn? Drawn at [facility] today at 1:15 : Results>>> 0.95 see scanned docs 11. If patient is on glucophage or metformin, have they been instructed to stop it for the next [address] simulation and have repeat creatinine drawn prior to restarting? na Vitals: 08/22/15 1300 BP: 126/78 Pulse: 67 Resp: 12 Temp: 37.3 ??C (99.1 ??F) SpO2: 99% See flow sheet or click on expand all in right upper corner of this progress note. documented in this encounter Plan of Treatment Not on filedocumented as of this encounter Procedures Procedure Name Priority Date/Time Associated Diagnosis Comme nts LAB SCAN 08/22/2015 12:00 AM EDT documented in this encounter Results SCAN DOC: LAB (08/22/2015 12:00 AM EDT) Narrative This result has an attachment that is no t available. Scanning Provider MEDIA MGR SCAN EXT ORDR/RSLT documented in this encounter Visit Diagnoses Diagnosis Head and neck cancer Malignant neoplasm of head, face, and ne ck Cancer with unknown primary site Other malignant neoplasm without specifi cation of site documented in this encounter Care Teams Ergonomic Specialist Relationship Specialty Start Date End Date Jay Campos PA PCP - General General Internal Medicine 07/02/15 08/20/20 [address] [place] [address] documented as of this encounter
--- OUTSIDE RECORDS SUMMARY | 2021-08-09 11:05 | XMS_ITS | Encounter Summary ---
:1965 Author Organization [facility] [place] [address] Care Team Providers Name Role Phone Jay Campos Primary Care Provider Encounter Details Date Type Department Care Team Description 01/31/2016 Telephone Otolaryngology at [facility] [place] [address] Social History Tobacco Use Types Packs/Day [...] Notes Telephone Encounter - Mildred Albert - 01/31/2016 9:39 AM EST Left messgae with appointment information documented in this encounter Plan of Treatment Upcoming Encounters Date Type Specialty Care Team Description 08/09/2021 Ancillary Procedure Radiology Paige Pérez MD Arrived [facility] ER NEUROLOGY [place], [place] [address] (Wo rk) documented as of this encounter Visit Diagnoses Not on filedocumented in this encounter Care Teams Die Baker Relationship Specialty Start Date End Date Jay Campos PA PCP - General General Internal Medicine 07/02/15 08/20/20 [address] [place] [address] documented as of this encounter
--- OUTSIDE RECORDS SUMMARY | 2021-08-09 11:05 | XMS_ITS | Encounter Summary ---
:1965 Author Organization [facility] [place] [address] Care Team Providers Name Role Phone Jay Campos Primary Care Provider Reason for Visit Diagnostic Test (Routine) - Closed Specialty Diagnoses / Procedures Referred By Contact Refer red To Contact Radiology Diagnoses Metastatic squamous cell carcinoma Leonardo Hansen MD [facility] Rad Nuclear Med Procedures PET/CT STANDARD (Skull base to Mid-thigh) [facility] [place] [address] [place] [address] Referral ID Status Reason Start Date Expiration Date Visits V isits Requested Authorized [id number] Closed Specialty 08/02/2015 08/01/2016 1 1 Service Requested Encounter Details Date Type Department Care Team Description 08/13/2015 Hospital Encounter Nuclear Medicine at [facility] ph, Mary Hitchcock [place] [address] OTOLARYNGOLOGY DEPT. [phone] [place], [place] [address] (Wo rk) Social History Tobacco [...] Name Priority Date/Time Associated Diagnosis Comme nts NM PET CT SKULL Routine 08/13/2015 9:32 AM Metastatic squamous Results for this BASE TO MID-THIGH EDT cell carcinoma procedur e are in ([facility]) the results section. POCT GLUCOSE Routine 08/13/2015 7:27 AM Results f or this EDT procedure are i n the results section. documented in this encounter Results POCT Glucose (08/13/2015 7:27 AM EDT) athologist Signature POC Glucose 95 65 - 199 [facility] mg/dL [facility] Comment: Supplemental ranges: <140 mg/dL before meals <180 mg/dL all other times of the day Specimen Anatomical Collection Method Collection Time Receive d Time (Source) Location / / Volume Laterality Blood specimen 08/13/2015 7:27 AM 016 7:27 (specimen) EDT AM EDT Leonardo Hansen MD POINT OF CARE TEST ORDERABLE S Performing Organization Address City/State/[place] [address] documented in this encounter Visit Diagnoses Not on filedocumented in this encounter Care Teams Railroad Accountant Relationship Specialty Start Date End Date Jay Campos PA PCP - General General Internal Medicine 07/02/15 08/20/20 [address] [place] [address] documented as of this encounter
--- OUTSIDE RECORDS SUMMARY | 2021-08-09 11:05 | XMS_ITS | Encounter Summary ---
:1965 Author Organization [facility] [place] [address] Care Team Providers Name Role Phone Jay Campos Primary Care Provider Encounter Details Date Type Department Care Team Description 10/18/2015 Notes Only Radiation Oncology at Gilbert Novak MD [address] RADIATION ONCOLOGY [place], [place] [phone] [place] [address] (Wo rk) Social History Tobacco [...] encounter Progress Notes Gilbert Novak MD - 10/18/2015 9:43 AM EDT Images from the original note were not included. RADIATION COMPLETION OF THERAPY NOTE IDENTIFICATION: Yash Dalton is a 50 y.o. male diagnosed with an isolated lymph node metastasis believed to be from a previously treated squamous cell carcinoma of the scalp who recently completed adjuvant radiotherapy to his left neck at the [facility] in [place], [place]. Details of his radiation treatment course are as below. TREATMENT INTENT: Curative REFERRING PROVIDER: Dr. Hansen RT information: Treatment modality: VMAT Date of RT Start: 09/06/15 Date of RT Completion: 10/17/15 Dose and targets: In 33 fractions, simultaneous integrated boost technique: 66 Gy to the tumor bed 60Gy to the adjacent lymphatics at high risk (levels II-superior V) 54Gy to low risk lymph node basin (level IV, inferior V) Chaplaincy Target Coverage (66, 60 and 54 Gy isodose lines indicated): SPECIAL TECHNICAL CONSIDERATIONS: The patient was simulated on a CT simulator. Customized stephens were designed to encompass the targetvolume and identify organs at risk and with the intent of minimizing normal tissue toxicity. TREATMENT TOLERANCE: With regard to side effects noted during radiotherapy, the patient tolerated treatment with expectedtoxicities for this treatment area and dose, including radiation dermatitis and pharyngitis which was managed conservatively. TREATMENT RESPONSE: The patient's response to treatment was undetermined, as he was largely asymptomatic at the time of presentation. FOLLOWUP: Follow-up visit with Radiation Oncology in [facility] is scheduled for 1 week for symptom check; he has received instructions to call this office or seek the help of the local emergency room if any further problems should arise prior to followup. documented in this encounter Plan of Treatment Upcoming Encounters Date Type Specialty Care Team Description 08/09/2021 Ancillary Procedure Radiology Paige Pérez MD Arrived [facility] ER NEUROLOGY DEPT [place], [place] [address] (Wo rk) documented as of this encounter Visit Diagnoses Not on filedocumented in this encounter Care Teams Gear Hobber Set Up Operator Relationship Specialty Start Date End Date Jay Campos PA PCP - General General Internal Medicine 07/02/15 08/20/20 [address] [place] [address] documented as of this encounter
--- OUTSIDE RECORDS SUMMARY | 2021-08-09 11:05 | XMS_ITS | Encounter Summary ---
:1965 Author Organization [facility] Address [facility] [address] [place] [address] Care Team Providers Name Role Phone Jay Campos Primary Care Provider Encounter Details Date Type Department Care Team Description 10/15/2015 Orders Only Radiation Oncology at [facility], speedy Callahan MD Carcinoma of unknown [facility] primary [address] [place], [place] RADIATION ONCOL OGY [id number] [place] [address] [phone] Social History Tobacco Use Types Packs/Day Years [...] Arrived [facility] NEUROLOGY DEPT [place], [place] [address] (Wo rk) documented as of this encounter Visit Diagnoses Diagnosis Carcinoma of unknown primary Other malignant neoplasm without specifi cation of site documented in this encounter Care Teams Hospitality Aide Relationship Specialty Start Date End Date Jay Campos PA PCP - General General Internal Medicine 07/02/15 08/20/20 [address] [place] [address] documented as of this encounter
--- OUTSIDE RECORDS SUMMARY | 2021-08-09 11:05 | XMS_ITS | Encounter Summary ---
:1965 [place] [address] Care Team Providers Name Role Phone Jay Campos Primary Care Provider Reason for Visit Auth/Cert Specialty Diagnoses / Procedures Referred By Contact Refer red To Contact Diagnoses Posterior triangle neck mass Procedures PRO REMOVAL NODES, NECK, CERV MOD RAD @CERVICAL LYMPHADENECTOMY (MODIFIED RADICAL NECK DISSECTION) Referral ID Status Reason Start Date Expiration Date Visits Requ ested Visits Authorized [id number] 1 1 Encounter Details Date Type Department Care Team Description 07/20/2015 Hospital Encounter Same Day Program at [facility] A, Neck mass [facility] DR Malcolm [place] [address] [place] [address] [phone] (Wo rk) Social History Tobacco Use Types Packs/Day Years Used Date Current Every Day Smoker Cigarettes 0.25 15 Smokeless Tobacco: Current User Chew Comments: Pt states he Chews more than h e smokes Alcohol Use Standard Drinks/Week Comments No 0 (1 standard drink = 0.6 oz pure alcoho l) Sex Assigned at Date Recorded Not on file documented as of this encounter Last Filed Vital Signs Vital Sign Reading Time Taken Comments Blood Pressure 127/90 07/20/2015 6:45 PM EDT Pulse 90 07/20/2015 6:45 PM EDT Temperature 36.8 ??C (98.2 ??F) 07/20/2015 6:10 PM EDT Respiratory Rate 18 07/20/2015 6:45 PM EDT Oxygen Saturation 95% 07/20/2015 6:45 PM EDT Inhaled Oxygen Concentration - - Weight - - Height - - Body Mass Index - - documented in this encounter Discharge Instructions Discharge InstructionsMela Senior RN - 07/20/2015 6:28 PM EDT POST ANESTHESIA INSTRUCTIONS Go home, rest, use caution on stairs. Change positions slowly. Do not smoke if you are alone. Diet light to regular as tolerated today. If nausea occurs start with clear liquids and progress slowly. No driving, operating machinery, alcoholic beverages and no important decisions for 24 hours. Monitor IV site for signs and symptoms of infection: increasing redness, swelling, foul drainage, ifoccurs contact M.D. Patients who have had endotrachial tubes (this tube, used by anesthesia department, is passed down your throat after you are asleep, to ensure safe air passage during your operation). A sore throat is normal due to the tube. Cold liquids or soothing lozenges will help ease the discomfort. The generalized muscle aches are due to the medication given to you just before the tube is inserted. As the medication wears off, you may develop muscle soreness, which usually goes away in 12-24 hours. Patient InstructionsKendall David MD - 07/20/2015 6:09 PM EDT Instructions Given to Patient at Discharge: Nerve Injury: The tumor in your neck had invaded the nerve which controls your left shoulder and a part of it was removed in order to take out the tumor. It was rewired in the operating room, however, it will take months before you can expect any recovery. There may not be full recovery of shoulder function. Pain medication: or pain, use acetaminophen (Tylenol) and/or ibuprofen (Motrin, Advil) as needed. For more severe pain, take the prescribed pain medication. If the prescribed pain medication contains acetaminophen, do not take additional acetaminophen (Tylenol) as this can cause liver damage. Do not exceed 4g acetaminophen per day. As your pain improves, wean yourself off of the prescribed pain medication. Do not drive or operate machinery while taking the prescribed pain medication. Drain Care: Strip the drain and record the output as you were instructed. When the output is less than 30ml for two days in a row it is ok for it to be removed. You may wait until your follow up appointment to have it removed (if it is within 5-7 days), call your PCP to see if they will remove it for you, or call the ENT clinic to schedule a nursing visit for drain removal. Car/Sutures: Will be removed at your follow up appointment (typically 7-10 days after surgery). Incision Care: Clean the incision with a damp gauze or washcloth to gently remove any crusts or scabs. Dry crusts and scabs will cause more scarring and make it hard to remove the sutures, if they remain. For stubborn scabs that won't come off, use hydrogen peroxide mixed 50:50 with water. Then dry the incision and apply bacitracin ointment. Do this twice per day. Diet: Follow this diet until your follow up appointment: regular diet Contact: -You can reach the ENT clinic at [phone] for appointment questions. -The ENT triage nurse is available at [phone] -For urgent issues during evenings and weekends the ENT resident quality assurance consultant can be reached through the main hospital soda fountain operator at [phone] documented in this encounter Medications at Time of Discharge Medication Sig Dispensed Refills Start Date End Date oxyCODONE (ROXICODONE) 5 Take 1 tablet by 30 tablet 0 07/1907/26/2015 mg Tablet mouth every 4 hours as needed for Pain. documented as of this encounter H&P Notes Kendall David MD - 07/20/2015 2:08 PM EDT 24-Hour Pre-Operative H&P Update Patient Name: Yash Dalton Patient Age: 50 y.o. Birthdate: 1965 Admit date: 07/20/2015 Attending Physician: Leonardo Hansen MD Patient seen and examined in the Pre-Operative Area today. I have reviewed, and agree with, the clinical history, physical examination findings, impression, and plan, as detailed in the original H&P Note. Yash is a 50 yo male with a left posterior triangle neck mass with indeterminate FNA cytology and radiologic appearance concerning for malignancy. He presents to the OR today for left level V neck dissection with direct laryngoscopy. No new clinically-significant changes to the patient's health. Patient is ready to proceed with the planned surgical procedure. documented in this encounter Miscellaneous Notes Op Note - Kendall David MD - 07/20/2015 6:15 PM EDT [facility] Operative Note Patient Name: Yash Dalton : [id number] MR#: [id number] Case Date: 07/20/2015 Surgeon: Surgeon(s) and Role: Panel 1: * Leonardo Hansen MD - Primary * Kendall David MD * Joseph Browne MD Panel 2: * Leonardo Hogan MD - Primary * Saadia Tariq MD - Resident-Surgeon Chief Preoperative diagnosis: Posterior triangle neck mass Postoperative diagnosis: Posterior triangle neck mass Procedure(s): @CERVICAL LYMPHADENECTOMY (MODIFIED RADICAL NECK DISSECTION) LARYNGOSCOPY WITH BIOPSY NERVE GRAFT, HEAD OR NECK, >4CM BIOPSY NASOPHARYNX, SURVEY FOR UNKNOWN PRIMARY Findings: Firm level V left neck mass involving skin, underlying soft tissue, and the spinal accessory nerve. A segment of the spinal accessory nerve required resection due to tumor invasion, and was reanastomosed using C4. Anesthesia: General Estimated Blood Loss: * No values recorded between 07/20/2015 3:00 PM and 07/20/2015 5:56 PM * Specimens removed during surgery: left level V neck mass. Drains: ESTRELLA drain 1x Surgical Closure: Primary Closure - closure of ALL tissue levels during the original surgery regardless of wires, wickes, drains, or other devices extruding through the incision Disposition: awakened from anesthesia, extubated and taken to the recovery room in a stable condition, having suffered no apparent untoward event. Condition: doing well without problems (Please see the Surgical Encounter Summary for any Implant and Specimen details pertinent to this patient.) HPI/Surgical Indications: Yash is a 50 yo male with a left posterior triangle neck mass with indeterminate FNA cytology and radiologic appearance concerning for malignancy. He presents to the OR todayfor left level V neck dissection with direct laryngoscopy. Procedure Description: The patient was taken to the operating room, placed in the supine position, and general endotracheal anesthesia was achieved without complication. The patient was turned 180 degrees from anesthesia. Direct laryngoscopy was performed, visualizing the entire oral cavity, oropharynx, larynx, and hypopharynx. Biopsies were obtained of the left nasopharynx, left tonsil, and left base of tongue and sent for permanent pathology. The left neck was then prepped and draped in the usual sterile fashion. After injecting 1% lidocainewith 1:200,000 epinephrine, a horizontal incision was made across posterior level III and midpoint through level V. Dissection to the platysma was carried out using monopolar cautery. At the tumor site, the skin was found to be firm, suggestive of tumor invasion. The original horizontal incision was adjusted to include an ellipse with 1 cm margins of skin around the tumor. Sub platysmal flaps were raised superiorly and inferiorly. Blunt dissection with monopolar cautery was used to dissect level V along the trapezius and SCM. The distal aspect of cranial nerve XI was identified and traced proximally. The nerve was found to enter the tumor and at this point the nerve itself became very firm and irregular appearing, suggesting perineural invasion. Dissection was continued around the tumor until it was removed. With removal of the tumor specimen, the nerve required transection. At this point plastic surgery was consulted, who then performed an anastomosis to C4 using 8-0 silk sutures. Once this had been completed, the surgical bed was irrigated with normal saline. Hemostasis was confirmed. A ESTRELLA drain was placed and sutured to the skin surface. The platysma was closed with 4-0 vicryl sutures and the skin was closed with car. The ESTRELLA was confirmed to be holding suction. The patient was then returned to anesthesia, allowed to awaken, and taken out of the operating room in good condition. The patient tolerated the procedure well without complication. Infection Bundle used? no Associated attestation - Leonardo Hansen MD - 07/20/2015 6:51 PM EDT Attestation: Case Date: 07/20/2015 I was present and I participated during the entire procedure (does not need to include opening and closing). LEONARDO HANSEN MD 07/20/2015 Op Note - Saadia Tariq MD - 07/20/2015 5:44 PM EDT Operative Note Patient Name: Yash Dalton : [id number] MR#: [id number] Case Date: 07/20/2015 Surgeon: Surgeon(s) and Role: Panel 1: * Leonardo Hansen MD - Primary * Kendall David MD * Joseph Browne MD * Leonardo Hogan MD - *ASSISTING SURGEON * Saadia Tariq MD - Resident-Surgeon Chief Panel 2: * Leonardo Hogan MD - Primary * Saadia Tariq MD - Resident-Surgeon Chief Preoperative diagnosis: Posterior triangle neck mass Postoperative diagnosis: Posterior triangle neck mass Procedure(s): @CERVICAL LYMPHADENECTOMY (MODIFIED RADICAL NECK DISSECTION) LARYNGOSCOPY WITH BIOPSY NERVE GRAFT, HEAD OR NECK, >4CM Anesthesia: General Findings:transected spinal accessory nerve Complications: None Fluids: per anesthesia Estimated Blood Loss: 0ml (for our portion) Drains: None Disposition: awakened from anesthesia, extubated and taken to the recovery room in a stable condition, having suffered no apparent untoward event. Condition: doing well without problems Details in brief: nerve graft from C4 to spinal accessory nerve Indication for procedure: A 50-year-old male patient who is undergoing cervical lymphadenopathy modified radical neck dissection by Dr. Hansen. There was a noted transection of the spinal accessory nerve and plastic surgery was called for nerve grafting. PROCEDURE: The plastic surgery team was called to the operating room in order to repair a transected spinal accessory nerve. A graft was obtained from C4, which had involved the tumor of resection at that time. The C4 nerve graft was sutured as a conduit between the transected spinal accessory nerve using 8-0 nylon sutures in a simple interrupted fashion, proceeding with an epineural repair. The epineural repair was completed and the procedure was resumed then by the ENT team. Brief Op Note - Saadia Tariq MD - 07/20/2015 5:43 PM EDT Brief Operative Note Patient Name: Yash Dalton : [id number] MR#: [id number] Case Date: 07/20/2015 Surgeon: Surgeon(s) and Role: Panel 1: * Leonardo Hansen MD - Primary * Kendall David MD * Joseph Browne MD * Leonardo Hogan MD - *ASSISTING SURGEON * Saadia Tariq MD - Resident-Surgeon Chief Panel 2: * Leonardo Hogan MD - Primary * Saadia Tariq MD - Resident-Surgeon Chief Preoperative diagnosis: Posterior triangle neck mass Postoperative diagnosis: Posterior triangle neck mass Procedure(s): @CERVICAL LYMPHADENECTOMY (MODIFIED RADICAL NECK DISSECTION) LARYNGOSCOPY WITH BIOPSY NERVE GRAFT, HEAD OR NECK, >4CM Anesthesia: General Findings:transected spinal accessory nerve Complications: None Fluids: per anesthesia Estimated Blood Loss: 0ml (for our portion) Drains: None Disposition: awakened from anesthesia, extubated and taken to the recovery room in a stable condition, having suffered no apparent untoward event. Condition: doing well without problems (Please see the Surgical Encounter Summary for any Implant and Specimen details pertinent to this patient.) documented in this encounter Plan of Treatment Not on filedocumented as of this encounter Procedures Procedure Name Priority Date/Time Associated Comments Diagnosis BIOPSY NASOPHARYNX, Routine 07/20/2015 6:05 Neck mass SURVEY FOR UNKNOWN PM EDT PRIMARY SPECIMEN TO PATHOLOGY Routine 07/20/2015 5:37 Res ults for this PM EDT procedure are i n the results section. NERVE GRAFT, HEAD OR Routine 07/20/2015 5:34 Neck mass NECK, >4CM PM EDT LARYNGOSCOPY, FLEXIBLE; Routine 07/20/2015 3:24 Neck mass WITH BIOPSY PM EDT SPECIMEN TO PATHOLOGY Routine 07/20/2015 3:24 Res ults for this PM EDT procedure are i n the results section. SPECIMEN TO PATHOLOGY Routine 07/20/2015 3:24 Res ults for this PM EDT procedure are i n the results section. SPECIMEN TO PATHOLOGY Routine 07/20/2015 3:24 Res ults for this PM EDT procedure are i n the results section. MISC HERNANDEZ TEST-HERNANDEZ Routine 07/20/2015 3:20 Resul ts for this PM EDT procedure are i n the results section. SURGICAL PATHOLOGY Routine 07/20/2015 3:20 Result s for this REPORT PM EDT procedure are i n the results section. BIOPSY NASOPHARYNX, 07/20/2015 2:29 Neck mass SURVEY FOR UNKNOWN PM EDT PRIMARY (WRVU 1.63) NERVE GRAFT, HEAD OR 07/20/2015 2:29 Neck mass NECK, >4CM (WRVU 20.82) PM EDT LARYNGOSCOPY, FLEXIBLE; 07/20/2015 2:29 Neck mass WITH BIOPSY (WRVU 1.97) PM EDT @CERVICAL 07/20/2015 2:29 Neck mass LYMPHADENECTOMY PM EDT (MODIFIED RADICAL NECK DISSECTION) (WRVU 23.95) documented in this encounter Results Specimen to Pathology (surgical or derm) (07/20/2015 5:37 PM EDT) Specimen Anatomical Collection Method Collection Time Receive d Time (Source) Location / / Volume Laterality AP Specimen 07/20/2015 5:37 PM 6 5:37 EDT PM EDT Narrative [facility] OR - 07/20/2015 5:37 PM EDT Specimen requisition ordered. ??Separate Pathology report to follow Leonardo Hansen MD PATHOLOGY/CYTOLOGY ORDERABLE S Performing Organization Address [facility] [place] [address] Specimen to Pathology (surgical or derm) (07/20/2015 3:24 PM EDT) Specimen Anatomical Collection Method Collection Time Receive d Time (Source) Location / / Volume Laterality AP Specimen 07/20/2015 3:24 PM 6 3:24 EDT PM EDT Narrative [facility] - 07/20/2015 3:24 PM EDT Specimen requisition ordered. ??Separate Pathology report to follow Leonardo Hansen MD PATHOLOGY/CYTOLOGY ORDERABLE S Performing Organization Address [facility] [address] Specimen to Pathology (surgical or derm) (07/20/2015 3:24 PM EDT) Specimen Anatomical Collection Method Collection Time Receive d Time (Source) Location / / Volume Laterality AP Specimen 07/20/2015 3:24 PM 6 3:24 EDT PM EDT Narrative [facility] OR - 07/20/2015 3:24 PM EDT Specimen requisition ordered. ??Separate Pathology report to follow Leonardo Hansen MD PATHOLOGY/CYTOLOGY ORDERABLE S Performing Organization Address [facility]/[place] [address] Specimen to Pathology (surgical or derm) (07/20/2015 3:24 PM EDT) Specimen Anatomical Collection Method Collection Time Receive d Time (Source) Location / / Volume Laterality AP Specimen 07/20/2015 3:24 PM 6 3:24 EDT PM EDT Narrative [facility] OR - 07/20/2015 3:24 PM EDT Specimen requisition ordered. ??Separate Pathology report to follow Leonardo Hansen MD PATHOLOGY/CYTOLOGY ORDERABLE S Performing Organization Address [facility] [place] [address] [facility] Test-[place] (07/20/2015 3:20 PM EDT) [facility] Method Time Signature [facility] SATNAM Test ? Result ? Flag ??Unit ??RefValue [facility] MYB (6q23), FISH, [facility] ??Result Summary ? Negative LABORATORY ??Interpretation ? SEE COMMENTS No rearrangement of the MYB gene region was identified. Clinical and pathologic correlation is recommended. ??Result ? SEE COMMENTS nuc nixon(MYBx3-4)[52/100] Abnormality ? Cutoff(%) 6q23.3(MYB sep) ? <5.0 +6q23.3(MYBx3) ?<8.0 ??Reason for Referral r/o 6q23.3 MYB gene rearrangement ??Specimen ? Tissue, Paraffin ??Source ? Left neck level 5 ??Tissue ID ?[id number] ??Method ? SEE COMMENTS Locus and probes ? [Strategy;#Nucle i;Class] 6q23(5'MYB,3'MYB) ? [BAP;100;ASR] Probe strategies include: BAP=break-apart probe. ??Disclaimer ? SEE COMMENTS Laboratory Developed Test (LDT). This test was developed and its performance characteristics determined by [facility]. It has not been cleared or approved by the U.S. Food and Drug Administration. This FISH test does not rule out other chromosome abnormalities. ??Released By ?Harvinder Uribe M.D. Test Performed by: [address] [address] Principal Network Engineer: Harvinder Siegel II, M.D., Ph.D. Specimen Anatomical Collection Method Collection Time Receive d Time (Source) Location / / Volume Laterality Specimen of Other / Unknown 07/20/2015 3:20 PM 2015 unknown material EDT 11:04 AM ED T (specimen) Resulting Agency Comment Spec In Lab Una Benjamin MD CHEMISTRY ORDERABLES Performing Organization Address City/State/[place] [address] Surgical Pathology Report (07/20/2015 3:20 PM EDT) Component Value Ref Test Analysis Performed At [facility] Range Method Time Signature Surgical S ? Location: LOCATED WITHIN [facility]; [facility]; [facility] Report The signing pathologist has (i) examined the relevant preparation(s) for the [facility] specimen(s) and (ii) rendered or confirmed the diagnosis(es) . HOSPITAL LABORATORY . ? Addendum ADDENDUM DISCUSSION SPECIAL TEST PERFORMED: Test: ??MYB (6q23), FISH, Ts [facility] Case: ??[id number] Performing Lab: ??[place] Reported by Harvinder Uribe MD Date reported: ??08/13/15 For the full text of the [place] report(s) please refer t o Non- Documentation Pathology in the electronic health record (eDH). 08/27/15 DLD 08/27/15 Verified by: ? Sourav FARRIS, Una Johnsno ?Pathologist ?(Electronic Signature ) The attending pathologist whose signature appears on this re port has reviewed all diagnostic slides and has edited the gross and/ or microscopic portion of the report in kris dering the final pathologic diagnosis. ?Surgic al Pathology DIAGNOSIS A - Left base of tongue, biopsy: Benign squamous mucosa with lymphoid stroma and actinomyces. B - Left tonsil, resection: Benign tonsil, squamous mucosa and skeletal muscle. C - Left nasopharynx, resection: Benign tonsilar type tissue. D - Left level 5, resection: 1. ??Metastatic carcinoma wi th basal cell and squamous features ?within the dermis, focally involving the cauterized resection margin (D6) 2. Extensive perineural invasion is identified. 3. Five lymph nodes, negative for malignancy (0/5). CR-0 07/27/15 LJT 08/17/15 Verified by: ? Sourav FARRIS, Una Johnson ?Pathologist ?(Electronic Signature ) The attending pathologist whose signature appears on this re port has reviewed all diagnostic slides and has edited the gross and/ or microscopic portion of the report in kris dering the final pathologic diagnosis. DISCUSSION Corrected Report This report is being corrected to includ e additional information and analysis. . DISCUSSION The patient 's prior scalp b iopsy from [address] [facility] for comparison; the biopsy is superficial and shows basal cell carcinoma which is transected at the base. ??P er report, the scalp lesion in 2003 measured 3.0 cm in diameter and was present for approximately 8 months prior t o biopsy. This histopathology of the c urrent neck mass was also reviewed with Dr. Kyrstal Swanson in dermatopathology who als o favors this being a dermal metastasis with basal cell features and focal squamous differentiation (focal keratinization and basaloid appearance). It is favored to be of skin origin, either the prior scalp lesion or another skin lesion. HPV genotyping was negative for all HPV genotypes evaluated. ??MYB FISH performed at [facility] was negative for MYB rearrangment. Clinical pathologic correlation is recommended. ADDITIONAL STUDIES Immunohistochemistry Studies: Formalin-fixed, paraffin-emb edded tissue sections are studied using the polymer technique with appropriate positive and negative controls. ?These IHC studies provide the pathologist wit h adjunctive diagnostic information. Antibody specificity has been verified by testin g antibodies on a series of in-house tissues with known immunohistochemical perform ance characteristics. The clinical interpretation of any antibody positive stain ing or its absence is evaluated within the context of clinical presentation, morp hology, histopathological criteria and other diagnostic tests. Block ? Antibody ?Result (Positive /Negative) D6 ?EGV NIXON ?Negati ve ?Black-EP4 ?Focal ly positive ?RUBIN ?Neg ative ?S100 ? Nega tive ?calponin ? [place] myoepithelial cells and some stromal cells ?SM actin ? Positive (non-specific) ?CKAE1/3 ?Posit emile ?p63 ?Pos itive ?CK7 ?Pos itive Special stains are performed. Block ?Stain ?Result ( Positive / Negative ) D6 ? mucicarmine ? Negative for intra cellular mucin CLINICAL INFORMATION Specimen Submitted: A - Left base of tongue B - Left tonsil C - Left nasopharynx D - Left level 5 Clinical History: Posterior triangle neck mass Clinical Diagnosis: [place] SPECIMEN PROCESSING A - ??Labeled/Fixative: Left base of tongue, saline. Quantity/Size: Three, averaging 0.3 cm. Tissue Description: ??Soft, pink tissues . . SPECIMEN PROCESSING Sections/Processing: ??(T1) B - ??Labeled/Fixative: Left tonsil, saline. Quantity/Size: Two, 0.4 and 0.6 cm. Tissue Description: ??Soft, pink tissues . Sections/Processing: ??(T1) C - ??Labeled/Fixative: Left nasopharynx, saline. Quantity/Size: Single, 0.5 cm. Tissue Description: ??Soft, pink tissue . Sections/Processing: ??(T1) ??sns Labeled/Fixative: Left level 5, fresh. Quantity/Size: Single, 6.1 x 5.1 x 2.3 cm. Tissue Description: Aggregat e of fibroadipose tissue with attached, unoriented skin measuring 5.3 x 1.9 x 0.2 c m. There is a prominence vessel measuring 4.6 x 0.9 x 0.8 cm as well. Sectioning reve als seven possible lymph nodes, the largest measuring 2.4 x 0.5 x 0.4 cm. The portion of skin is estevez-brown and grossly without lesions. LESION Size: Roughly 2.2 x 1.2 x 1.1 cm Description: Firm, estevez-white. Margin: 0.1 cm away grossly. Location: 0.4 cm deep to skin. Sections/Processing: The deep margin is inked in blue. (1) largest lymph node, bisected; (2-4) each contai nii two bisected lymph nodes, differentially inked; (5) metals sales representative of skin; (6-8) skin and deep lesion. ??(R7) apm ?[facility] [employer] RESULTS ?Human Papillomavirus (HP V) Genotyping Analysis Indication for Study: ?? Posterior triangle neck mass Specimen: ?? Left level, 5 resection (D6-7) Analysis: ?? HPV Genotyping by el? Linear Array HPV Genoty ping Test Results: Negative ??for all HPV genotypes analyzed Comments: ??The results of t his test indicate that the submitted tissue contained none of the 37 HPV types detected by this assay. Methods: ?? Highly purified genomic DNA was extracted from a formalin fixed paraffin embedded tissue section aft er lysing of the cells. HPV genotyping was performed using the Linear Array HPV Genotpying Test that includes PCR for a consensus sequence found in high and low risk HPV types followed by gel electrophoresis, and a linear array (DNA transfer) with probes for 37 HPV types, 13 of which are high risk (16, 18, 31, 33, 35, 39, 45 , 51, 52, 56, 58, 59, 68). ??Products were verified using gel electrophoresis. This test was developed and its performance determined by the [facility] Molecular Pathology ??Laboratory. It has not been cleared or approved by the U.S. Food and Drug Administration. This t est is used for clinical purposes and should not be considered as investigation al or for research purposes. The Molecular Pathology . RESULTS Laboratory is certified by the Clinical Laboratory Improvement Act of 1988 and as such is allowed to perform high complexity clinical testing . References: ?? Tyesha TW, Nara HOBBS. Biochemistry 1991;30:4063-1181; Rahul GOLDSTEIN, et al. J pathol 1999;189:12-19; Mustapha SEPULVEDA, et al. J C melissa Microbiol 2000 ?;38 ??:357-361. Verified date: ??08/14/15 ??TLW Verified by: ?Una Benjamin MD ?(Electronic Signature) ? Addendum ADDENDUM DISCUSSION Immunohistochemistry Studies: Formalin-fixed, paraffin-emb edded tissue sections are studied using the polymer technique with appropriate positive and negative controls. ?These IHC studies provide the pathologist wit h adjunctive diagnostic information. Antibody specificity has been verified by testdemetrio g antibodies on a series of in-house tissues with known immunohistochemical perform ance characteristics. The clinical interpretation of any antibody positive stain ing or its absence is evaluated within the context of clinical presentation, morp hology, histopathological criteria and other diagnostic tests. Block ? Antibody ?Result (Positive /Negative) D6 ?p16 ?Strongly p ositive Note: HPV genotyping has been ordered and will be reported s eparately. 07/27/15 LJT 07/30/15 Verified by: ? Sourav FARRIS, Una Johnson ?Pathologist ?(Electronic Signature ) The attending pathologist whose signature appears on this re port has reviewed all diagnostic slides and has edited the gross and/ or microscopic portion of the report in kris dering the final pathologic diagnosis. Specimen (Source) Anatomical Collection Method Collection Time Re ceived Time Location / / Volume Laterality 07/20/2015 3:20 PM EDT Leonardo Hansen MD PATHOLOGY/CYTOLOGY ORDERABLE S Performing Organization Address City/State/[place] [address] documented in this encounter Visit Diagnoses Diagnosis Neck mass Swelling, mass, or lump in head and neck documented in this encounter Administered Medications Inactive Administered Medications - up to 3 most recent administrations Medication Order MAR Action Action Date Dose Rate Site acetaminophen (TYLENOL) tablet 650 mg 650 mg, Oral, EVERY 4 HOURS PRN, Startin g on Thu07/20/15 at 1810, Until Thu07/20/15 at 2118, Pain, Maximum dose of acetaminophen is 4000 m g from all sources in 24 hours., Routine oxyCODONE (ROXICODONE) immediate release tablet 10 mg 10 mg, Oral, EVERY 4 HOURS PRN, Starting on Thu07/20/15 at 1810, Until Thu07/20/15 at 211, Pain, severe pain (7-10), May give an additional 5 mg in 30 minutes once if pain not relieved., Routine oxyCODONE (ROXICODONE) immediate release tablet 5 mg 5 mg, Oral, EVERY 4 HOURS PRN, Starting on Thu07/20/15 at 1810, Until Thu07/20/15 at 2117, Pain, mild to moderate pain (1-6), May give an additional 5 mg in 30 minutes once if pain not relieved., Routine documented in this encounter Active and Recently Administered Medications Times are shown in EDT. Continuous Medication Order 07/18/2015 07/19/2015 07/20/2015 lactated ringers infusion 1,000 mL 1425 (New Bag - Provider: Inocencio Ayala MD)1504 (Anesthesia Volume Adjustment - Provider: Inocencio Ayala MD)1642 (New Bag - Provider: Inocencio Ayala MD)1724 (New Bag - Provider: Inocencio horowitz MD) 1,000 mL, at 100 mL/hr, Intravenous, CON TINUOUS, Starting Thu07/20/15 at 1230, Until Thu07/20/15 at 1909, Day of Surgery (Day of Procedure) PRN Medication Order 07/18/2015 07/19/2015 07/20/2015 acetaminophen (TYLENOL) tablet 650 mg 650 mg, Oral, EVERY 4 HOURS PRN, Startin g Thu07/20/15 at 1810, Until Thu07/20/15 at 8, Pain, Maximum dose of acetaminophen is 4000 mg from all sources in 24 hours., Routine bacitracin ointment (CANCELED) 1 751 (Given - Provider: Leonardo Hansen MD) ONCE PRN, Starting Thu07/20/15 at 1751, Intra-Operative (Intra-Pr ocedure) lidocaine (XYLOCAINE) 10 mg/mL (1 %) injection 3 mg 3 mg (0.3 mL), Subcutaneous, ONCE PRN, 1 dose, Starting Thu07/20/15 at 1204, Until Thu07/20/15 at 1909, for discomfort with PIV insertion, Day of Surgery (Day of Procedure), Routine lidocaine-EPINEPHrine 1 %-1:200,000 injection (CANCELED) 1500 (Given - Provider: Leonardo Hansen MD) ONCE PRN, Starting Thu07/20/15 at 1500, U ntil Thu07/20/15 at 2117, Intra-Operative (Intra-Procedure), Routine oxyCODONE (ROXICODONE) immediate release tablet 10 mg(Linked Romaine up 1) 10 mg, Oral, EVERY 4 HOURS PRN, Starting Thu07/20/15 at 1810, Until Thu07/20/15 at 2117, Pain, severe pain (7-10), May give an additional 5 mg in 30 minutes once if pain not relieved., Routine oxyCODONE (ROXICODONE) immediate release tablet 5 mg(Linked Grou p 1) 5 mg, Oral, EVERY 4 HOURS PRN, Starting Thu07/20/15 at 1810, Until Thu07/20/15 at 2117, Pain, mild to moderate pain (1-6), May give an additional 5 mg in 30 minutes once if pain not relieved., Routine sodium chloride 0.9 % flush 5-20 mL 5-20 mL, Intravenous, EVERY 1 MIN PRN, S tarting Thu07/20/15 at 1204, Until Thu07/20/15 at 1909, flush, Flush pertains to all indwelling lines. Flush per protocol found in the job aid using the link provid ed on this medication record., Day of Surgery (Day of Procedure) , Routine Linked Groups Order Group 1: oxyCODONE (ROXICODONE) immediate release tablet 5 mgJump to med 5 mg, Oral, EVERY 4 HOURS PRN, Starting Thu07/20/15 at 1810, Until Thu07/20/15 at 2117, Pain, mild to moderate pain (1-6)
May give an additional 5 mg in 30 minutes once if pain not relieved.
Routine Or oxyCODONE (ROXICODONE) immediate release tablet 10 mgJump to med 10 mg, Oral, EVERY 4 HOURS PRN, Starting Thu07/20/15 at 1810, Until Thu07/20/15 at 2117, Pain, severe pain (7-10)
May give an additional 5 mg in 30 minutes once if pain not relieved.
Routine documented in this encounter Care Teams Manager Entry Relationship Specialty Start Date End Date Jay Campos PA PCP - General General Internal Medicine 07/02/15 08/20/20 [address] [place] [address] documented as of this encounter
--- OUTSIDE RECORDS SUMMARY | 2021-08-09 11:05 | XMS_ITS | Encounter Summary ---
:1965 Author Organization [facility] [place] [address] Care Team Providers Name Role Phone Jay Campos Primary Care Provider Encounter Details Date Type Department Care Team Description 09/14/2015 Clinical Support Hematology/Oncology at [facility] NHUNG Jennings [address] [place] [phone] Social History Tobacco Use Types Packs/Day [...] encounter Progress Notes Valerie Paz RD - 09/14/2015 3:[address] [facility] Initial Dietitian Assessment Seen By: Michaela Paz, MS, RD, FLOOR MECHANIC, LD Referred by: Reason for visit: Patient and diagnosis: Yash Dalton is a 50 y.o. 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 Assessment: HPI: Patient Active Problem List Diagnosis Code ??? 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 Neck mass R22.1 Meds: reviewed Labs: Ht: 167.6 cm Wt: Wt Readings from Last 3 Encounters: 09/06/15 66.6 kg (146 lb 12.8 oz) 08/13/15 66.2 kg (146 lb) 08/13/15 65.3 kg (144 lb) Wt Hx: UBW: % UBW: IBW: +/- 10% % IBW: BMI:23.7 ___ Edema ___ Ascites ___Muscle wasting Calorie needs: 1700 - 2000 Protein needs: 100 Fluid needs: 2 L Food Intake: Am: Noon: Pm: Snacks: Supplements/Frequency: ___ Ensure/Plus ___ Boost/Plus ___ CIB ___ Other: Teas, vitamins, or other nutritional supplements: Food allergies or avoidances: Appetite: Nausea: Vomiting: Chewing: Dentition: Swallowing: Taste Changes: Bowels: Food availability/purchasing, meal planning and preparation: Depression: Social Support: Economic Issues: The patient lives with his roommate and girlfriend in [place], [place] and previously worked as [employer]. Estimated travel time by the patient to [facility] is 20 minutes, one-way. Smoking: smokes 5 cigs / day Tobacco: chews 2 cans / day Alcohol: beer nightly Illicits: denies Physical Activity: Level of Motivation/Readiness to Change: Nutrition Diagnosis: 09/14/15: Pt was unaware of appointment and left after Rt. Pc to him, the only phone listed was a mobile and hearing him was challenging. Introduced myself and role on his treatment team. Asked if we could meet next week after his treatment. He agreed to the plan. Nutrition Intervention: ? Increase caloric needs ? Modify diet consistency: ? Increase frequency of meals and snacks ? Need for supplements Nutrition Goals: Educational Handouts provided: Other Recommendations: ? Monitoring and Evaluation: Will follow up with Mr. Dalton in one week (s) to re-evaluate. I have provided himwith my card and contact information should he have any questions in the mean time. Thank you for this consult. documented in this encounter Plan of Treatment Upcoming Encounters Date Type Specialty Care Team Description 08/09/2021 Ancillary Procedure Radiology Paige Pérez MD Arrived [facility] [place], [place] [address] (Wo rk) documented as of this encounter Visit Diagnoses Diagnosis Dietary counseling Dietary surveillance and counseling documented in this encounter Care Teams Knitter Machine Relationship Specialty Start Date End Date Jay Campos PA PCP - General General Internal Medicine 07/02/15 08/20/20 [address] [place] [address] documented as of this encounter
--- OUTSIDE RECORDS SUMMARY | 2021-08-09 11:05 | XMS_ITS | Encounter Summary ---
:1965 Author Organization [facility] [place] [address] Care Team Providers Name Role Phone Jay Campos Primary Care Provider Encounter Details Date Type Department Care Team Description 08/22/2015 Ancillary Appointment Radiation Oncology at Leon Novak [facility] [address] [place] [address] RADIATION ONCOL OGY [id number] [place], [place] [phone] (Wo rk) Social History Tobacco Use Types [...] on file documented as of this encounter Patient Instructions Patient InstructionsElizabeth Shukla RN - 08/22/2015 1:54 PM EDT General instructions for Radiation therapy Radiation Oncology Team ?? Radiation Oncologist -The doctor who will direct all aspects of your radiation treatments ?? Nurse Practitioner - They assist your doctor in treating your side effects and with follow up appointments. ?? Registered Nurse - They assist you in learning about you radiation treatments, , and things you can do to help manage the side effects. ?? Asphalt Coater - They take the doctors radiation prescription and customize it into doses (or days of treatments) specific for you. ?? Physicist - They make sure all the machines are operating correctly and double check calculationsfor your treatment. ?? Radiation Technologists - They operate the machines which deliver your radiation. You see them daily and they schedule your treatments. ?? Simulation CT/ Planning Session- Your first step after deciding to start radiation treatments is done on a special CT scanner in radiation oncology. The images obtained are used to plan your treatments. This may be scheduled the sameday you meet your doctor or in a separate visit. This usually takes between 30 minutes to one hour. You may need an IV for contrast. If so our nurse will let you know that day along with any other special instructions. During this visit we may sara Your skin with a tiny ???tattoos?? , take pictures ormake special molds or masks to help us place you in the exact treatment position every day. After this session it takes up to two weeks for your plan to be developed and checked by your doctor, the dosimetrists and the physicist. ?? Skin Care - Your nurse/physician will provide you with the necessary creams and supplies as you need them during your treatments. Please make sure to keep the treatment area clean and dry. Be sure to notice if your clothing rubs or digs into the treatment area and try to wear clothes which are less abrasive, like cotton or loosefitting. Do not use harsh soaps, ointments, deodorants or tapes in the treatment area unless directed by your nurse or doctor. Keep the treatment area out of the sun during treatments. ?? General precautions- DO NOT USE heating pads, hot water bottles, hot poultices, heat lamps, heat in any form, or ice packs to the area of your body being treated. It is common to start feeling fatigue after a few weeks of being treated. You can help minimize this by getting regular exercise or walking and getting plenty of rest. In general a well balanced diet is recommended. The practical ministries professor and nurse will inform you of any special diet requirements. Avoid shaving the treatment area with a razor. If you must shave use an electric razor. Our Contact numbers Section of Radiation Oncology Our normal business hours are: Thursday - Thursday: 8 AM to 5 PM [facility]: [facility]: Phone# If you have questions about your radiation appointments please ask to speak to one of our production intern staff. If you have questions for a nurse/doctor about radiation treatments, radiation side effects or you are not feeling well it is best to call early in the day. This allows a nurse to return your call by 5PM the same day. If you call after 4 PM, a nurse will return your call by 5 PM the following day unless it is emergent. If you experience any of the following you need to seek emergency care immediately by calling 911 1. Sudden and unexpected breathing difficulty without any exertion 2. Sudden onset of chest pain 3. Sudden onset of severe pain or uncontrolled pain 4. Sudden onset of severe weakness and/or unable to ambulate 5. Sudden new onset of a seizure 6. Fall resulting in injury A Radiation Oncology doctor is retail and promotions coordinator after our normal hours and on weekends. To call for urgent medical issues from radiation treatments that can not wait until normal business hours, please call for either location and have the waterproof bag cutting machine operator page the Radiation Oncologist in call. documented in this encounter Progress Notes Gilbert Novak MD - 08/22/2015 4:08 PM EDT Simulation Note for External Beam Radiation Treatment Planning [facility] Juwan Dalton is a 50 y.o. year old male with TxN1M0 squamous cell carcinoma of the left posterior neck who was simulated for adjuvant radiotherapy to the left neck today. No changes were made from the plan as documented in the original simulation order and instructions. Briefly, he was immobilized using an aquaplast mask and prior to the scan IV contrast (100ml @ 300mg/ml iohexol solution) was administered. A 2.5mm slice thickness CT scan of the patient's head and neck was then obtained. This scan was performed to delineate both target volumes and organs/structures at risk. These images will be used to create a customized treatment plan employing multileaf collimators and beams-eye view to treat the target to prescription dose while maximally sparing organs at risk, with the overall goal of maximizing the likelihood of a favorable disease response while minimizingthe likelihood of any short term side effects or intermediate designer complications of therapy. I anticipate his prescription dose will be 66 Gy to the tumor bed, delivered in daily 2.2 Gy fractions over the course of 6 weeks. Anticipate therapy to begin within the next 10 days. Furthermore, I anticipate this patient will require IMRT or VMAT treatment planning and delivery as the critical treatment volume of interest (in this case, tumor bed) is/are irregular and in close proximity to sensitive structures which must be protected (including his oral cavity, spinal cord, salivary glands and mandible). The patient tolerated this procedure well, and was provided instructions with regard to upcoming appointments. Elizabeth Shukla RN - 08/22/2015 3:01 PM EDT Radiation Oncology CT IV Contrast Simulation Nursing Note [place], [place] Diagnosis: neck metastatic SCCa ( scalp primary) IV Access site: Right arm Performed by: Digna Singh RN Gauge: 20 Blood Return: yes CT Simulation of: neck Pre-contrast qustionnaire completed prior to IV insertion : yes Simulation tennis desk team member assessed IV line patency prior to IV contrast dye : yes Time contrast administered: 3:31 PM By: Sindy Novak MD and Nat Shukla RN present for contrast injection and 5 minutes after: Volume of Contrast injected by radiation therpaist: 100ml of Omnipaque 300mg/ml Volume of Contrast wasted: none Procedure done in [facility] Radiation Oncology Simulator Room. Reaction:[ ] Yes : explain reaction [x ] none: No adverse reaction / Patient tolerated procedure well Signs and symptoms or infiltration/extravastion: None Time IV discontinued: 15:45 Patient teaching: Patient instructed to drink 2 liters of water over the next 48 hours post IV contrast simulation. Patient verbalized understanding of these instructions. Elizabeth Shukla RN - 08/22/2015 1:57 PM EDT Initial Patient Education for Radiation Treatments Literature reviewed and given to patient : #1 Radiation Therapy and You a Guide to Self-Help During Cancer Treatment U.S. Department of Health and Human Services National Institutes of Health Publication No. 07-7157 National Cancer [place] Revised June 2006, Printed June 2011 #2 [facility];Shared drive/info for RT Patients: a) Information for Patients Receiving Radiation Therapy b) Managing Cancer Treatment Related Fatigue Adapted from Cancersytoms.org Information for understanding cancer on c) Skin Care for Patients Receiving Radiation Therapy Recommended supply and to do list for head and neck cancer radiation therapy patients: power point presentation on shared drive:rad/onc nursing #3 Miscellaneous: Dietary Guidelines: soft foods(Oncology Diet and Nutrition Patient Education Resource Manual Jeans cream supplied with the instructions to apply to site of radiation twice a day, but not less than 2 hours before radiation treatment. Contact information: If you have any questions or concerns regarding your cancer, please call: During business hours: [facility] [phone] Weekend/holidays/nights: [facility] [phone] and ask for the retail and promotions coordinator radiation oncologist For general medical questions not related to cancer; Please contact your primary physician. For medical emergencies needing immediate attention;contact local primary physician, go to local hospital emergency room,or call [phone]. Patient verbalized understanding . documented in this encounter Plan of Treatment Not on filedocumented as of this encounter Visit Diagnoses Not on filedocumented in this encounter Care Teams Research Editor Relationship Specialty Start Date End Date Jay Campos PA PCP - General General Internal Medicine 07/02/15 08/20/20 [address] [place] [address] documented as of this encounter
--- OUTSIDE RECORDS SUMMARY | 2021-08-09 11:05 | XMS_ITS | Encounter Summary ---
:1965 Author Organization [facility] [place] [address] Care Team Providers Name Role Phone Jay Campos Primary Care Provider Encounter Details Date Type Department Care Team Description 08/02/2015 Multidisciplinary Care Otolaryngology at [facility] Carol Bauer [facility] [place] [address] [place] [address] [place] [address] Social History Tobacco Use Types Packs/Day Years Used Date Current Every Day Smoker Cigarettes 0.25 15 Smokeless Tobacco: Current User Chew Comments: trying to quit. Still chews Alcohol Use Standard Drinks/Week Comments No 0 (1 standard drink = 0.6 oz pure alcoho l) Sex Assigned at Date Recorded Not on file documented as of this encounter Progress Notes Abdi Bauer MD - 08/02/2015 6:26 AM EDT Head & Neck - Tumor Board Note Date Presented: 08/02/2015 Presenting Physician: Leonardo Hansen MD Diagnosis/Tumor Site: neck Synopsis of History/HPI: 50 yo M presenting with 8 mo hx of left level 5 neck mass. Some paresthesias to ear lobe. FNAB suggestive of epithelial cells but non diagnostic. Hx of resection of skin cancerscalp bx and radiated on left side in the past at [facility]. Exam: mass of left zone 5 firm, mobile, FNL negative. Imaging:soft tissue mass 2 cm, irregular margins, spiculated, invading trapezius, possible invasion of SCM, no other anomaly Taken to the OR for excision and level 5 node dissection.Mass stuck to the accessory nerve, and primary repair done. DL and bx's done: negative Pathology: Infiltrative NK SCCa, infiltration of muscle, PNI+, p16+. HPV assay pending.Possible thisis an OP primary Stage: Clinical Data (Exams, Labs, etc.): Histology: Clinical Trial Availability: n/a Options Discussed: PET scan to be done Recommendations: radiation therapy consult, representation after PET scan DISCLAIMER: The patient was discussed and the tumor board made recommendations but it is ultimately up to the treatment provider(s) and the patient to determine the patient???s care. documented in this encounter Plan of Treatment Not on filedocumented as of this encounter Visit Diagnoses Not on filedocumented in this encounter Care Teams Grid Casting Machine Operator Helper Relationship Specialty Start Date End Date Jay Campos PA PCP - General General Internal Medicine 07/02/15 08/20/20 [address] [place] [address] documented as of this encounter
--- OUTSIDE RECORDS SUMMARY | 2021-08-09 11:05 | XMS_ITS | Encounter Summary ---
:1965 Author Organization [facility] [place] [address] Care Team Providers Name Role Phone Jay Campos Primary Care Provider Encounter Details Date Type Department Care Team Description 10/15/2015 Notes Only Radiation [place]cology [place] [facility] [place] Sifuentes, [place] [phone] Social History Tobacco Use Types Packs/Day [...] documented as of this encounter Progress Notes Brandy Sifuentes, RN - 10/15/2015 4:00 PM EDT Yash Dalton is a 50 y.o. 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 Dr Novak aware of patient symptoms and increase pain. Dr Novak recommends adding long acting morphine 30 mg every 12 hours and a renewal for immediate release 15 mg morphine 30 tablets and to add miralax once a day to prevent constipation. Dr Escobar wrote a prescription to start with 15 mg long acting morphine tablets every 12 hours and 30 tablets of immediate release 15 mg. Yash Dalton verbalizes understanding of the plan to start long acting Morphine along with immediately to achieve a pain level of 3/10 and to add a miralax and a stool softner to prevent constipation. Nursing in Radiation Oncology will assess patient on 10/16/15 for pain, bowels and skin. Dr Novak will see patient on last day of radiation treatment. documented in this encounter Plan of Treatment Upcoming Encounters Date Type Specialty Care Team Description 08/09/2021 Ancillary Procedure Radiology Paige Pérez MD Arrived [facility] ER NEUROLOGY DEPT [place], [place] [address] (Wo rk) documented as of this encounter Visit Diagnoses Not on filedocumented in this encounter Care Teams Food Products Tester Relationship Specialty Start Date End Date Jay Campos PA PCP - General General Internal Medicine 07/02/15 08/20/20 [address] [place] [address] documented as of this encounter
--- OUTSIDE RECORDS SUMMARY | 2021-08-09 11:05 | XMS_ITS | Encounter Summary ---
:1965 Author Organization [facility] [place] [address] Care Team Providers Name Role Phone Jay Campos Primary Care Provider Reason for Referral Consultation (Routine) - Closed Specialty Diagnoses / Procedures Referred By Contact Refer red To Contact Radiation Oncology Diagnoses Metastatic squamous cell carcinoma Leonardo Hansen [facility] On[facility] Gabby green MD [address] [place] [address] OTOLARY[address] DEPT. [id number] [place] [address] Referral ID Status Reason Start Date Expiration Date Visits V isits Requested Authorized [id number] Closed Consult, 08/02/2015 08/01/2016 1 1 Test & Treat Diagnostic Test (Routine) - Closed Specialty Diagnoses / Procedures Referred By Contact Refer red To Contact Radiology Diagnoses Metastatic squamous cell carcinoma Leonardo Hansen MD [facility] Rad Nuclear Med Procedures PET/CT STANDARD (Skull base to Mid-thigh) [facility] [place] [address] [place] [address] Referral ID Status Reason Start Date Expiration Date Visits V isits Requested Authorized [id number] Closed Specialty 08/02/2015 08/01/2016 1 1 Service Requested Reason for Visit Reason Comments Follow-up f/up path results Encounter Details Date Type Department Care Team Description 08/02/2015 Office Visit Otolaryngology at [facility] Leonardo Hansen Metastatic squamous [facility] [place] [phone] [facility] [phone] CENTER OTOLARYNGOLOGY DEPT. [place], [place] [address] Social History Tobacco Use Types [...] Sign Reading Time Taken Comments Blood Pressure 120/79 08/02/2015 8:54 AM EDT Pulse 82 08/02/2015 8:54 AM EDT Temperature - - Respiratory Rate - - Oxygen Saturation - - Inhaled Oxygen Concentration - - Weight 65.3 kg (144 lb) 08/02/2015 8:54 AM EDT Height 167.6 cm (5' 6) 08/02/2015 8:54 AM EDT Body Mass Index 23.24 08/02/2015 8:54 AM EDT documented in this encounter Progress Notes Leonardo Hansen MD - 08/02/2015 12:17 PM EDT [facility] [place] - [facility] & Neck [place] Office Visit Mr. Dalton presents for followup after a recent neck dissection. Final pathology was consistent with a metastatic squamous cell carcinoma. Additional testing for HBV and analysis is being conducted currently. This case was reviewed at the Head and Neck Tumor Board, and recommendations were for Radiation Oncology referral and PET CT scan for further staging and workup. Presumably, this is a metastatic skin cancer; however, other sites still need to be ruled out. Mr. Dalton reports that he is feeling quite good. He has been fairly active recently. He notices no shoulder weakness per se, and can easily raise his arms over his head. His incision has healed very nicely. His main issue is some numbness and occasionally some overuse fatigue in the shoulder. I reviewed the results of the pathology with Mr. Dalton and his friend, as well as the Tumor Board recommendations. He is fully onboard with the additional workup. I did explain to him that pending the PET results he may require additional biopsies or other procedures done, and we will see what things show with the PET. Referrals have been placed for Radiation Oncology and for PET CT scan. Further recommendations to follow. This visit was 15 minutes, the entirety was spent in counseling and coordination of care. documented in this encounter Plan of Treatment Scheduled Referrals Name Type Priority Associated Diagnoses Order S chedule Referral to Outpatient Referral Routine Metastatic squamous O rdered: Radiation Oncology cell carcinoma 016 documented as of this encounter Results PET/CT STANDARD (Skull base to Mid-thigh) (08/13/2015 9:32 AM EDT) Anatomical Region Laterality Modality Nuclear Medicine Specimen (Source) Anatomical Location Collection Method / Collectio n Time Received Time / Laterality Volume Impressions 08/13/2015 11:31 AM EDT 1. ??No primary site of malignancy is suggested on this exam. 2. ??Patient has had surgical resection of a left posterior triangle lymph node, with expected postoperative inflammation in the surrounding soft tissues. 3. ??Several small mildly hypermetabolic left level II lymph nodes posterior to the submandibular gland, are nonspecific and may represent reactive nodes versus additional small rogerio metastases. 4. ??Diffusely hypermetabolic stomach wa ll is likely physiologic, however gastritis not excluded. Please correlate clinically. Thank you for referring this patient to [facility]. I have personally reviewed the image(s) and the residents interpretation and agree with the findings, Kendall Mcwilliams at 08/13/2015 11:31 AM Narrative 08/13/2015 11:31 AM EDT EXAMINATION: PET/CT STANDARD (SKULL BASE TO MID THIGH) CLINICAL HISTORY: head and neck cancer TECHNIQUE: Procedure: Following IV injec tion of 72-cxvijj-4-deoxyglucose (FDG) a standard uptake of approximately 60 maurice kevin, a noncontrast CT scan followed by a PET scan were acquired from the top of t he head to mid thighs. The noncontrast CT was used for anatomic localization an d photon attenuation correction of the PET scan Blood glucose level: 95 (mg/dL) FDG dose: 9.7 mCi COMPARISON: CT soft tissue neck 07/12/2015 FINDINGS: HEAD/NECK: The previously noted rogerio mass in the l eft posterior triangle has been surgically removed. Ill-defined hypermet abolic cutaneous and subcutaneous soft tissue stranding in the left lower neck likely represents post operative inflammation. There is mild hypermetabol ic activity within several subcentimeter left-sided level II lymph nodes posterio r to the submandibular gland (seen best on axial image 7 of the body series). No rmal metabolic activity in all other regions. CHEST: Normal activity in all soft tissue regio ns. No pulmonary nodules or adenopathy. There is bibasilar dependent atelectasis , more pronounced on the left. ABDOMEN/PELVIS: There is diffusely increased activity wi thin the wall of the stomach, likely physiologic however gastritis not exclud ed Incidental note is made of minor atherosclerotic disease. SKELETON/EXTREMITIES: Normal activity in all regions of the ax ial and ??visualized appendicular skeleton. ? Procedure Note Kendall Mcwilliams MD - 08/13/2015Formatti ng of this note might be different from the original. EXAMINATION: PET/CT STANDARD (SKULL BASE TO MID THIGH) CLINICAL HISTORY: head and neck cancer TECHNIQUE: Procedure: Following IV injec tion of 83-ppogew-5-deoxyglucose (FDG) a standard uptake of approximately 60 maurice kevin, a noncontrast CT scan followed by a PET scan were acquired from the top of t he head to mid thighs. The noncontrast CT was used for anatomic localization an d photon attenuation correction of the PET scan Blood glucose level: 95 (mg/dL) FDG dose: 9.7 mCi COMPARISON: CT soft tissue neck 07/12/2015 FINDINGS: HEAD/NECK: The previously noted rogerio mass in the l eft posterior triangle has been surgically removed. Ill-defined hypermet abolic cutaneous and subcutaneous soft tissue stranding in the left lower neck likely represents post operative inflammation. There is mild hypermetabol ic activity within several subcentimeter left-sided level II lymph nodes posterio r to the submandibular gland (seen best on axial image 7 of the body series). No rmal metabolic activity in all other regions. CHEST: Normal activity in all soft tissue regio ns. No pulmonary nodules or adenopathy. There is bibasilar dependent atelectasis , more pronounced on the left. ABDOMEN/PELVIS: There is diffusely increased activity wi thin the wall of the stomach, likely physiologic however gastritis not exclud ed Incidental note is made of minor atherosclerotic disease. SKELETON/EXTREMITIES: Normal activity in all regions of the ax ial and visualized appendicular skeleton. IMPRESSION 1. No primary site of malignancy is sugg ested on this exam. 2. Patient has had surgical resection of a left posterior triangle lymph node, with expected postoperative inflammation in the surrounding soft tissues. 3. Several small mildly hypermetabolic l eft level II lymph nodes posterior to the submandibular gland, are nonspecific and may represent reactive nodes versus additional small rogerio metastases. 4. Diffusely hypermetabolic stomach wall is likely physiologic, however gastritis not excluded. Please correlate clinically. Thank you for referring this patient to [facility]. I have personally reviewed the image(s) and the residents interpretation and agree with the findings, Kendall Mcwilliams at 08/13/2015 11:31 AM Leonardo Hansen MD IMG PET ORDERABLES documented in this encounter Visit Diagnoses Diagnosis Metastatic squamous cell carcinoma Other malignant neoplasm without specifi cation of site Metastatic squamous cell carcinoma Other malignant neoplasm without specifi cation of site documented in this encounter Care Teams Sports Equipment Repairer Relationship Specialty Start Date End Date Jay Campos PA PCP - General General Internal Medicine 07/02/15 08/20/20 [address] [place] [address] documented as of this encounter
--- OUTSIDE RECORDS SUMMARY | 2021-08-09 11:05 | XMS_ITS | Encounter Summary ---
:1965 Author Organization [facility] [place] [address] Care Team Providers Name Role Phone Jay Campos Primary Care Provider Encounter Details Date Type Department Care Team Description 10/12/2015 Clinical Support Hematology/Oncology at Valerie Paz [facility] NHUNG Jennings [address] [place] [phone] Social History Tobacco Use Types Packs/Day [...] encounter Progress Notes Valerie Paz RD - 10/12/2015 2:30 PM EDT [facility] Dietitian Follow Up Assessment Seen By: Michaela Paz, MS, RD, FUND RAISER, LD Patient and diagnosis: Yash Dalton is [...] lives with his roommate and girlfriend in [place], [place] and previously worked as [employer]. Estimated travel time by the patient to [facility] is 20 minutes, one-way. Smoking: smokes [...] samples given, unopened. Donated on 10/02/15 lot [id number], exp 17 Oct 2016) - needs 6/d [...] to be managed with carafate and BMX. Nutrition Intervention: ? Increas: e caloric needs ? Modify diet consistency: ? Increase frequency of meals and snacks ? Need for supplements Nutrition Goals: Educational Handouts provided: -- CIB coupon/sample -- Ensure samples/coupon -- Oral Care -- High fausto/high pro beverage recipes -- Soft,moist protein foods Other Recommendations: ? Monitoring and Evaluation: Will follow up with Mr. Dalton in one week (s) to re-evaluate, likely via PC as he is scheduled to complete RT on 10/17/15. . documented in this encounter Plan of Treatment Upcoming Encounters Date Type Specialty Care Team Description 08/09/2021 Ancillary Procedure Radiology Paige Pérez MD Arrived [facility] NEUROLOGY DEPT [place], [place] [address] (Wo rk) documented as of this encounter Visit Diagnoses Diagnosis Dietary counseling Dietary surveillance and counseling documented in this encounter Care Teams Supervisor [employer]loom Relationship Specialty Start Date End Date Jay Campos PA PCP - General General Internal Medicine 07/02/15 08/20/20 [address] [place] [address] documented as of this encounter
--- OUTSIDE RECORDS SUMMARY | 2021-08-09 11:05 | XMS_ITS | Encounter Summary ---
:1965 Author Organization [facility] [place] [address] Care Team Providers Name Role Phone Jay Campos Primary Care Provider Reason for Visit Reason Comments IV Access SIM start Encounter Details Date Type Department Care Team Description 08/22/2015 Infusion Hematology Oncology at [address] [phone] Social History Tobacco Use [...] documented as of this encounter Progress Notes Digna Singh RN - 08/22/2015 4:21 PM EDT Patient requires IV access for Radiology. #20 gauge placed in R AC. documented in this encounter Plan of Treatment Not on filedocumented as of this encounter Visit Diagnoses Diagnosis Neck mass Swelling, mass, or lump in head and neck documented in this encounter Care Teams Account Engineer Relationship Specialty Start Date End Date Jay Campos PA PCP - General General Internal Medicine 07/02/15 08/20/20 [address] [place] [address] documented as of this encounter
--- OUTSIDE RECORDS SUMMARY | 2021-08-09 11:05 | XMS_ITS | Encounter Summary ---
:1965 Author Organization [facility] [place] [address] Care Team Providers Name Role Phone Jay Campos Primary Care Provider Encounter Details Date Type Department Care Team Description 01/29/2016 Telephone Radiation Oncology at [facility], Elizabeth Johns RN [address] [phone] Social History Tobacco Use [...] this encounter Miscellaneous Notes Telephone Encounter - Elizabeth Shukla RN - 01/29/2016 9:54 AM EST Radiation Oncology Nurse Telephone Note [place], [place] 01/29/16 09:45 Telephone call from patient c/o severe pruritis and rash on left side neck where he received radiation treatments. He completed these txs on 10/17/15. He states that the rash never went away after his treatments. He is applying silvadene cream and Aquaphor w/ partial , short term relief. He denies having any pain other than when he scratches this area which causes occasional bleeding. He tries not to scratch, but finds it very difficult. He states that the pruritis wakes him up at night. He denies any peeling but states that the area has small blisters.He also denies having a rash or itching any where else on his body. Plan: He was advised to stop the creams ( silvadene & Aquaphor) that he is applying as he may beallergic since it is very unusual to have a radiation reaction this far out from treatment. His medical record shows NKDA. Recommended hydrocortisone cream 1% prn pruritis and to try diphenhydramine po per package instructions tonight at HS to help w/ pruritis and sleeping. Offered appt to see Dr Novak tomorrow around 2:30 ( after he gets out of work) if these interventions are not helpful. Pt wrote these instructions down and repeated back to me accurately. He agrees with this plan. Dr Novak notified via this note. documented in this encounter Plan of Treatment Upcoming Encounters Date Type Specialty Care Team Description 08/09/2021 Ancillary Procedure Radiology Paige Pérez MD Arrived [facility] ER NEUROLOGY DEPT [place], [place] [address] (Wo rk) documented as of this encounter Visit Diagnoses Not on filedocumented in this encounter Care Teams Filler Picker Relationship Specialty Start Date End Date Jay Campos PA PCP - General General Internal Medicine 07/02/15 08/20/20 [address] [place] [address] documented as of this encounter
--- OUTSIDE RECORDS SUMMARY | 2021-08-09 11:05 | XMS_ITS | Encounter Summary ---
:1965 Author Organization [facility] [place] [address] Care Team Providers Name Role Phone Jay Campos Primary Care Provider Reason for Visit Reason Comments Follow-up F/Y after CT, hasn't changed since last visit Encounter Details Date Type Department Care Team Description 07/12/2015 Office Visit Otolaryngology at [facility] Leonardo Hansen, [facility] [place] [phone] [place] [address] OTOLARYNGOLOGY D EPT. [place], [place] [address] (Wo rk) Social History Tobacco [...] - Inhaled Oxygen Concentration - - Weight 66.7 kg (147 lb) 07/12/2015 3:14 PM EDT Height 170.2 cm (5' 7) 07/12/2015 3:14 PM EDT Body Mass Index 23.02 07/12/2015 3:14 PM EDT documented in this encounter Progress Notes Leonardo Hansen MD - 07/12/2015 6:52 PM EDT Attending note: Patient seen and examined with the above resident. I have reviewed and agree with the history, physical, and assessment and plan. Time spent in counseling and discussion of the above: 25/25 minutes Leonardo Hansen MD FACS Otolaryngology - Head & Neck Surgery Ric Wise MD - 07/12/2015 3:14 PM EDT [facility] Otol[facility]ology - Head & Neck Surgery Progress Note Primary Care Physician:OFELIA JUAREZ Consult requested by:No primary care provider on file. Date:07/12/2015 ENT Attending:Dr. Hansen Patient ID: [id number] y.o. Male with Left neck mass Interval: CT neck performed today showing 15 mm x 15 mm spiculated left posterior triangle mass. Exam: Vitals: Height 170.2 cm (5' 7), weight 66.7 kg (147 lb). GENERAL: Well developed, well appearing, no acute distress. HEENT: Left EAC with subcutaneous smooth-appearing nodule, no signs of infection or ulceration. Left TM retraction pocket. Left posterior triangle firm, very indurated 2 cm mass on anterior border of trapezius, mass appearsfixed to underlying tissues; non-tender to palpation; overlying skin appears normal. No adenopathy otherwise. Normal thyroid. Pathology: FNA left neck mass: low cellularity sample, containing...cells, possibly of parotid acinar derivation..no evidence of metastatic carcinoma... Radiology CT neck FINDINGS: ?? Within the subcutaneous tissue of the posterior triangle of the left neck anterior to the trapezius and posterior to the SCM there is an irregularly marginated heterogeneous enhancing mass measuring approximately 1.5 x 1.5 x 1.5 cm (series 3 image 203 and series 601 image 77). Spicule along its lateral margin extending to inner indistinguishable from the dermis. There are scattered nonpathologically enlarged cervical lymph nodes bilaterally. No other cervical masses visualized. There appears to been no vascular involvement. The parotid, submandibular and submental glands are within normal limits. No suspicious sclerotic or lytic osseous abnormalities. The visualized aerodigestive tract is within normal limits. The partially visualized intracranial contents are within normal limits. The partially visualized lung apices are clear. Mucosal thickening within the right maxillary sinus and mild thickening within the ethmoid air cells. The remaining paranasal sinuses and mastoid air cells are clear. The orbits are within normal limits. Mild cervical spondylosis most prominent at the C5-6 vertebral levels with endplate degenerative changes. IMPRESSION 1. Heterogeneous spiculated enhancing mass within the left posterior triangle with appearance most consistent with malignancy. Differential diagnosis includes squamous cell carcinoma, basal cell carcinoma, and metastasis 2. No other mass or cervical lymphadenopathy. Assessment: Left posterior triangle neck mass with indeterminate FNA cytology and radiologic appearance concerning for malignancy. Discussed options with patient including surveillance versus excisional biopsy, and discussed that cancers of the nasopharynx can present with posterior triangle metastatic nodes and that only with tissue sampling can a definitive diagnosis be made; He is in agreement to proceed withdirect laryngoscopy, nasal endosocpy, otolaryngic exam under anesthesia and wide local excision of posterior triangle mass with possible neck dissection. Recommendations/Plan: --schedule for surgery documented in this encounter Plan of Treatment Not on filedocumented as of this encounter Procedures Procedure Name Priority Date/Time Associated Diagnosis Comme nts CERVICAL LYMPHADENECTOMY Routine 07/12/2015 3:57 PM Neck mass (MODIFIED RADICAL NECK EDT DISSECTION) documented in this encounter Visit Diagnoses Diagnosis Neck mass Swelling, mass, or lump in head and neck documented in this encounter Care Teams Leaf Fat Scraper Relationship Specialty Start Date End Date Jay Campos PA PCP - General General Internal Medicine 07/02/15 08/20/20 [address] [place] [address] documented as of this encounter
--- OUTSIDE RECORDS SUMMARY | 2021-08-09 11:05 | XMS_ITS | Encounter Summary ---
:1965 Author Organization [facility] [place] [address] Care Team Providers Name Role Phone Jay Campos Primary Care Provider Reason for Referral Physical Therapy (Routine) - Closed Specialty Diagnoses / Procedures Referred By Contact Refer red To Contact Physical Therapy Diagnoses Status post neck dissection Leonardo Hansen [facility] Pt Rehab MD [facility] [place] [address] [place] [address] Referral ID Status Reason Start Date Expiration Date Visits V isits Requested Authorized [id number] Closed Evaluate and 08/13/2015 08/12/2016 1 1 Treat Reason for Visit Reason Comments Follow-up F/U after PET, S/P neck diss ection, Met SCCa. Hard time sleeping, back to work, LT shoulder and back o f shoulder pain Encounter Details Date Type Department Care Team Description 08/13/2015 Office Visit Otolaryngology at [facility] Leonardo Hansen Status post neck dissection; [facility] Latasha Mao MD [place] [phone] [facility] [phone] CENTER OTOLARYNGOLOGY DEPT. [place], [place] [address] Social History Tobacco Use Types [...] - - Weight 65.3 kg (144 lb) 08/13/2015 10:06 AM EDT Height 167.6 cm (5' 6) 08/13/2015 10:06 AM EDT Body Mass Index 23.24 08/13/2015 10:06 AM EDT documented in this encounter Progress Notes Leonardo Hansen MD - 08/13/2015 10:58 AM EDT [facility] Otolaryngology - Head & Neck Surgery Office Visit Yash Dalton is s/p left neck dissection for metastatic SCCa. Retrieved old records and he had received radiation for apparently a BCCa (no pathology report) back in 2003. He is getting some sorenessin the shoulder at night after work. Oxycodone does help with this. Has not had referral to PT. Seeing radiation oncology later today. On exam neck incision is completely healed. Some dysesthesia over the chest. Shoulder ROM is good with slight restriction on arm raise. I reviewed his PET/CT from today. HEAD/NECK: The previously noted spiculated mass in the left posterior triangle has been surgically removed. Ill-defined hypermetabolic cutaneous and subcutaneous soft tissue stranding in the left lower neck likely represents post operative inflammation. There is mild hypermetabolic activity within subcentimeter left-sided level II lymph nodes posterior to the submandibular gland (seen best on axial image 7 of the body series). Normal metabolic activity in all other regions. ?? CHEST: Normal activity in all soft tissue regions. No pulmonary nodules or adenopathy. There is bibasilar dependent atelectasis, more pronounced on the left. ?? ABDOMEN/PELVIS: ?? There is diffusely increased activity within the wall of the stomach and pylorus, as well as focally within the proximal cecum. Incidental note is made of minor atherosclerotic disease. ? SKELETON/EXTREMITIES: Normal activity in all regions of the axial and visualized appendicular skeleton. ? IMPRESSION 1. No primary site of disease is identified on this exam. 2. Patient has had surgical resection of a left posterior triangle lymph node, with expected postoperative inflammation in the surrounding soft tissues. Additional small mildly hypermetabolic level II lymph nodes posterior to the left submandibular gland, are nonspecific and may represent reactive nodes versus additional rogerio metastases. 3. Diffusely hypermetabolic stomach wall is likely physiologic. Diffuse gastritis is not ruled out. A/P; Stable exam. Referral to PT Renew oxycodone to be taken at night only Review PET/CT at [facility] Tumor Board to determine next steps Time spent in counseling and discussion of the above: 10/15 minutes documented in this encounter Plan of Treatment Scheduled Referrals Name Type Priority Associated Diagnoses Order S chedule Referral to Outpatient Referral Routine Status post neck Orde red: Physical Therapy dissection 08/13/2015 documented as of this encounter Visit Diagnoses Diagnosis Status post neck dissection Metastatic squamous cell carcinoma Other malignant neoplasm without specifi cation of site documented in this encounter Care Teams Underwriter Solicitation Director Relationship Specialty Start Date End Date Jay Campos PA PCP - General General Internal Medicine 07/02/15 08/20/20 [address] [place] [address] documented as of this encounter
--- OUTSIDE RECORDS SUMMARY | 2021-08-09 11:05 | XMS_ITS | Encounter Summary ---
:1965 Author Organization [place] [address] Care Team Providers Name Role Phone Jay Campos Primary Care Provider Encounter Details Date Type Department Care Team Description 09/21/2015 Clinical Support Hematology/Oncology at [facility] NHUNG Jennings [address] [place] [phone] Social History Tobacco Use Types Packs/Day [...] encounter Progress Notes Valerie Paz RD - 09/21/2015 2:00 PM EDT [facility] Dietitian Follow Up Assessment Seen By: Michaela Paz, MS, RD, DIGITAL PRODUCTION OPERATOR, LD Patient and diagnosis: Yash Dalton is [...] one? Swallowing: denies Taste Changes: denies Bowels: Food availability/purchasing, meal planning and preparation: Depression: Social Support: Economic Issues: The patient lives with his roommate and girlfriend in [place], [place] and previously worked as [employer]. Estimated travel time by the patient to [facility] is 20 minutes, one-way. Smoking: smokes 5 [...] any issues. Discussed likely s/e from RT. Nutrition Intervention: ? Increase caloric needs ? [...] Arrived [facility] [place], [place] [address] (Wo rk) documented as of this encounter Visit Diagnoses Diagnosis Dietary counseling Dietary surveillance and counseling documented in this encounter Care Teams Computer Technology Trainer Relationship Specialty Start Date End Date Jay Campos PA PCP - General General Internal Medicine 07/02/15 08/20/20 [address] [place] [address] documented as of this encounter
--- OUTSIDE RECORDS SUMMARY | 2021-08-09 11:05 | XMS_ITS | Encounter Summary ---
:1965 [place] [address] Care Team Providers Name Role Phone Jay Campos Primary Care Provider Encounter Details Date Type Department Care Team Description 08/15/2015 Multidisciplinary Care Hematology and Raj Jara, Committee Oncology at [facility] [address] [place] ONCOLOGY [place]. [address] [place], [place] [phone] [facility] Social History Tobacco Use Types Packs/Day Years [...] documented as of this encounter Progress Notes Raj Jara MD - 08/15/2015 8:20 AM EDT Head & Neck - Tumor Board Note Date Presented: 08/15/2015 Presenting Physician: Leonardo Hansen MD Diagnosis/Tumor Site: Synopsis of History/HPI: (f/u presentation) H/O L parietal scalp basal cell Ca, ~3 cm, treated with primary RT in 2004. Re-presented 2016 with low neck mass; taken to OR for level 5 dissection, requiring resection of XIth nerve. Laryngoscopy, with biopsies done at same sitting. Imaging: CT: Low L neck nodule, invading trapezius and skin PET/CT: informative at mass, none in throat; several equivocal neck nodes, <1 cm, no significant FDG uptake Pathology: neck dissection: dermal (non-rogerio) met of nonker Ca, poorly diff, sq + basal features. PNI (+). No signs of salivary differentiation. p16 strongly (+) but HPV DNA testing (-) for all 37 subtypes. 5 nodes (-) for malignancy. Stage: Clinical Trial Availability: none Options Discussed: local field adjuvant radiation vs avilez-mucosal RT as for occult H/N primary. Unusual time delay between primary and this recurrence discussed; no history of immunocompromise. Recommendations: board believes this is skin cancer rather than mucosal H/N cancer, and favor RT stephens as for skin cancer recurrence. Recommend re- consultation with dermatology to R/O intercurrent primary skin cancer leading to this metastasis. DISCLAIMER: The patient was discussed and the tumor board made recommendations but it is ultimately up to the treatment provider(s) and the patient to determine the patient???s care. documented in this encounter Plan of Treatment Not on filedocumented as of this encounter Visit Diagnoses Not on filedocumented in this encounter Care Teams Community Health Advocate Relationship Specialty Start Date End Date Jay Campos PA PCP - General General Internal Medicine 07/02/15 08/20/20 [address] [place] [address] documented as of this encounter
--- OUTSIDE RECORDS SUMMARY | 2021-08-09 11:05 | XMS_ITS | Encounter Summary ---
:1965 Author Organization [facility] [place] [address] Care Team Providers Name Role Phone Mckayla Santana APRN Primary Care Provider [phone] Encounter Details Date Type Department Care Team Description 06/29/2015 External Results Medical Records Provider, [place] [phone] Social History Tobacco Use Types Packs/Day Years Used Date Never Assessed Sex Assigned at Date Recorded Not on file documented as of this encounter Plan of Treatment Not on filedocumented as of this encounter Procedures Procedure Name Priority Date/Time Associated Diagnosis Comme nts CYTOLOGY SCAN Routine 06/29/2015 documented in this encounter Results Scan Doc: Cytology (06/29/2015) Narrative This result has an attachment that is no t available. Leonardo Hansen MD MEDIA MGR SCAN EXT ORDR/RSLT documented in this encounter Visit Diagnoses Not on filedocumented in this encounter Care Teams Professional Application Designer Relationship Specialty Start Date End Date Mckayla Santana APRN PCP - General 06/22/12 07/01/15 [address] [place] [address] documented as of this encounter
--- OUTSIDE RECORDS SUMMARY | 2021-08-09 11:05 | XMS_ITS | Encounter Summary ---
:1965 Author Organization [facility] [place] [place] [address] Care Team Providers Name Role Phone Jay Campos Primary Care Provider Reason for Visit Diagnostic Test (Routine) - Closed Specialty Diagnoses / Procedures Referred By Contact Refer red To Contact Radiology Diagnoses Head and neck cancer Gilbert Novak MD [facility] Rad Nuclear Med Procedures PET CT STANDARD (Skull base to Mid-tHigh) [address] [place] [address] [place] [address] [place], [place] [address] Referral ID Status Reason Start Date Expiration Date Visits V isits Requested Authorized [id number] Closed Specialty 11/15/2015 11/14/2016 2 2 Service Requested Encounter Details Date Type Department Care Team Description 02/06/2016 Hospital Encounter Nuclear Medicine at Gilbert Novak MD [address] [place] [id number] (Wo rk) Social History Tobacco Use Types [...] Sig Dispensed Refills Start Date End Date ibuprofen (ADVIL;MOTRIN) Take 600 mg by mouth 0 02/13/2016 600 mg Tablet every 6 hours as needed for Pain. documented as of this encounter Plan of Treatment Upcoming Encounters Date Type Specialty Care Team Description 08/09/2021 Ancillary Procedure Radiology Paige Pérez MD Arrived [facility] DE[facility] [place], [place] [address] (Wo rk) documented as of this encounter Procedures Procedure Name Priority Date/Time Associated Diagnosis Comme nts NM PET CT SKULL Routine 02/06/2016 2:16 PM Head and neck cance r Results for this BASE TO MID-THIGH EST procedure are in ([facility]) the results section. documented in this encounter Results PET CT STANDARD (Skull base to Mid-tHigh) (02/06/2016 2:16 PM EST) Anatomical Region Laterality Modality Nuclear Medicine Specimen (Source) Anatomical Location Collection Method / Collectio n Time Received Time / Laterality Volume Impressions 02/06/2016 2:37 PM EST There is no evidence of recurrent or metastatic malignancy. There is a 4 mm left lower lobe nodule o f questionable significance. Please consider follow-up imaging to assure sta bility. Thank you for referring this patient to [facility]. Narrative 02/06/2016 2:37 PM EST EXAMINATION: PET CT STANDARD (SKULL BASE TO MID-THIGH) CLINICAL HISTORY: head / neck cancer of unknown primary (potentially skin), s/p neck dissection and adjuvant radiotherap y. TECHNIQUE: Following IV injection of 18- nouauy-0-izexkkjxkctr (FDG) a standard uptake of approximately 60 minutes, a no ncontrast CT scan followed by a PET scan were acquired from the top of head to mi d thighs. The noncontrast CT was used for anatomic localization and photon att enuation correction of the PET scan. Blood glucose level: 76 (mg/dL) FDG dose: 13.2 mCi COMPARISON: August 13, 2015 FINDINGS: HEAD/NECK: There is mild and diffuse increased FDG activity in the soft tissues of the left side of the neck. This finding is most c onsistent with the history of prior surgery and radiation therapy. There is no evidence of recurrent malignancy. Polyps or retention cysts are present in the right maxillary sinus. ? CHEST: No abnormal activity is present. There is a nonhypermetabolic 4 mm nodule in the left lower lobe (image 87). Although not seen in the prior study, it may have been obscured by partial atelectasis. There are no prior studies for comparison. ABDOMEN/PELVIS: No abnormal activity is present. The pre viously described increased activity in the stomach has largely resolved. ? SKELETON/EXTREMITIES: No abnormal activity is present. ? Procedure Note Malachi López MD - 02/06/2016 EXAMINATION: PET CT STANDARD (SKULL BASE TO MID-THIGH) CLINICAL HISTORY: head / neck cancer of unknown primary (potentially skin), s/p neck dissection and adjuvant radiotherap y. TECHNIQUE: Following IV injection of 18- dgtxoh-6-mrauwspkrhmf (FDG) a standard uptake of approximately 60 minutes, a no ncontrast CT scan followed by a PET scan were acquired from the top of head to mi d thighs. The noncontrast CT was used for anatomic localization and photon att enuation correction of the PET scan. Blood glucose level: 76 (mg/dL) FDG dose: 13.2 mCi COMPARISON: August 13, 2015 FINDINGS: HEAD/NECK: There is mild and diffuse increased FDG activity in the soft tissues of the left side of the neck. This finding is most c onsistent with the history of prior surgery and radiation therapy. There is no evidence of recurrent malignancy. Polyps or retention cysts are present in the right maxillary sinus. CHEST: No abnormal activity is present. There is a nonhypermetabolic 4 mm nodule in the left lower lobe (image 87). Although not seen in the prior study, it may have been obscured by partial atelectasis. There are no prior studies for comparison. ABDOMEN/PELVIS: No abnormal activity is present. The pre viously described increased activity in the stomach has largely resolved. SKELETON/EXTREMITIES: No abnormal activity is present. IMPRESSION There is no evidence of recurrent or met astatic malignancy. There is a 4 mm left lower lobe nodule o f questionable significance. Please consider follow-up imaging to assure sta bility. Thank you for referring this patient to [facility]. Gilbert Novak MD IMG PET ORDERABLES documented in this encounter Visit Diagnoses Not on filedocumented in this encounter Care Teams Field Map Editor Relationship Specialty Start Date End Date Jay Campos PA PCP - General General Internal Medicine 07/02/15 08/20/20 [address] [place] [address] documented as of this encounter
--- OUTSIDE RECORDS SUMMARY | 2021-08-09 11:05 | XMS_ITS | Encounter Summary ---
:1965 [place] [address] Care Team Providers Name Role Phone Jay Campos Primary Care Provider Reason for Visit Auth/Cert Specialty Diagnoses / Procedures Referred By Contact Refer red To Contact Diagnoses Posterior triangle neck mass Procedures PRO REMOVAL NODES, NECK, CERV MOD RAD @CERVICAL LYMPHADENECTOMY (MODIFIED RADICAL NECK DISSECTION) Referral ID Status Reason Start Date Expiration Date Visits Requ ested Visits Authorized [id number] 1 1 Encounter Details Date Type Department Care Team Description 07/20/2015 Anesthesia Event Main Operating Room Mariel Mosley MD [facility] [address] [facility] Estrada MD [facility] [place] [address] [place] [address] Anesthesia Record Procedure Summary Procedure Name Responsible Anesthesia Start Anesthesia Stop Anesthesiologist Time Time @CERVICAL aMriel Traina MD 07/20/15 1426 07/20/15 18 18 LYMPHADENECTOMY (MODIFIED RADICAL NECK DISSECTION) (WRVU 23.95) (Left Neck) Events Date Time Event Comment 07/20/2015 1408 1425 AN Verify 1426 Start 1435 An Start Data 1438 An Induction 1441 An Intubation 1448 Anesthesia Ready 1453 Procedure Start 1545 Break/Relief In CYNTHIA SALCIDO AMS, MD 1600 Break/Relief Out 1800 Extubation/LMA Out 1804 an stop data 1818 Recovery or ICU Handoff Patient care was transferred to the destination unit staff after review of the patient's medica l history, current anesthetic/surgi fausto status and plan, according to the Provider Handoff Checklist. 181 Stop Name Total Midazolam 2 mg fentaNYL 250 mcg IV Lidocaine 40 mg Propofol 450 mg Rocuronium 30 mg PHENYLephrine 80 mcg Ondansetron 4 mg Dexamethasone 4 mg ceFAZolin 2 g Ketamine 10 mg/mL 100 mg Dexmedetomidine 60 mcg HYDROmorphone 0.4 mg lactated ringers infusion 1,000 mL 2,000 mL Agents Name O2 Air Sevoflurane (et) Blood No blood administrations on file. Lines, Drains, and Airways Type Details Placement Removal Incision 07/20/15; neck 07/20/15 0000 by Marina Levy RN Incision 07/20/15; throat 07/20/15 0000 by (Laryngoscopy) Marina Levy RN Lumbar/CSF Drain 07/20/15; 1738; Left; 07/20/15 1738 by neck; collapsible closed Enedelia Francis RN device; 15 fr rene PIV 07/20/15; 1219; (right 07/20/15 1219 by Del 05/01 1909 by forearm); 18 gauge; Frederic Richards RN Reining haus, Debra intradermal injection, ISABEL Johnson tolerated well; 07/20/15; 1909 ETT Mask Ventilation: Easy 07/20/15 1441 by 07/20/15 1800 by (1); ETT Type: Cuffed, Inocencio Ayala MD Bar ton, William B, Oral; ETT Size: 6.5 mm; Mac Blade: 4; Notes: Asleep, Pre-O2; Attempts: 1; Laryngoscopy Grade: 1; ETT Placement Verified By: Auscultation, Capnometry, Visual; Secured at Teeth: 22 cm; Inserted by: franca Urethral Catheter 07/20/15; 1455; Physician 07/20/15 1455 by 05/01 1909 by order; Physician order; Marina Levy RN Reinin ghaus, Debra other (see comments) Alex RN (Indwelling cath inserted by with clear yellow urine return); latex; 14; inserted at this facility; 2; 10; 10; none; drainage bag to dependent drainage; 07/20/15; 190 Urethral Catheter 07/20/15; 1459; 07/20/15; 07/20/15 1459 by 05/01 1909 by 190 Marina Levy, Latasha Ortiz RN documented in this encounter Social History Tobacco Use Types Packs/Day Years Used Date Current Every Day Smoker Cigarettes 0.25 15 Smokeless Tobacco: Current User Chew Comments: Pt states he Chews more than h e smokes Alcohol Use Standard Drinks/Week Comments No 0 (1 standard drink = 0.6 oz pure alcoho l) Sex Assigned at Date Recorded Not on file documented as of this encounter OR Notes Anesthesia Postprocedure Evaluation - Mikal Leslie - 07/20/2015 6:18 PM EDT [facility] Department of Anesthesiology Post-procedure Note Patient: Yash Dalton Procedure Summary Date Anesthesia Start Anesthesia Stop Room / Location 07/20/15 1420 [id number] [facility] OR [facility] MAIN OR Procedure Diagnosis Surgeon Responsible Provider @CERVICAL LYMPHADENECTOMY (MODIFIED RADICAL NECK DISSECTION) (Left Neck); LARYNGOSCOPY WITH BIOPSY (N/A Throat); BIOPSY NASOPHARYNX, SURVEY FOR UNKNOWN PRIMARY (Left Nose); NERVE GRAFT, HEAD OR NECK, >4CM (Left Head) Neck mass (Posterior triangle neck mass) Leonardo Hansen MD; Leonardo Hogan MD Evans, Rebecca E, MD All Anesthesia Providers: Anesthesiologist: Mariel Triana MD; Cynthia Harding MD [facility] Consultant: Mikal Leslie MD; Inocencio Ayala MD Last (1hr) Vitals: BP Temp Pulse Resp SpO2 Patient Location: PACU/[facility] Level of Consciousness: Awake and Alert Pain Management: Satisfactory Analgesia PONV: None Cardiovascular Status: At Baseline and Hemodynamically Stable Respiratory Status: At Baseline and Supplemental O2 (NC or FM) Postoperative Fluid Status: Intravascular EUvolemia Possible Anesthetic Complications: NONE apparent at time of evaluation Final Primary Anesthesia Type: General (The anesthetic type performed was the same as planned.) Comments: MIKAL LESLIE MD Anesthesia Preprocedure Evaluation - Inocencio Ayala MD - 07/19/2015 5:29 PM EDT Pre-Anesthesia Evaluation for: Yash Dalton a 50 y.o. male. Procedure(s): @CERVICAL LYMPHADENECTOMY (MODIFIED RADICAL NECK DISSECTION) FACIAL NERVE MONITORING, SETUP LARYNGEAL Patient Active Problem List Diagnosis ??? Neck mass ??? Dermatographism Past Medical History Diagnosis Date ??? Basal cell carcinoma of scalp ??? Radiation therapy complication BCCa of scalp No past surgical history on file. History Substance Use Topics ??? Smoking status: Current Every Day Smoker Packs/day: 0.25 Years: 15.00 Types: Cigarettes ??? Smokeless tobacco: Current User Types: Chew Comment: Pt states he Chews more than he smokes ??? Alcohol use: No History Drug Use No No Known Allergies Medications: MAR and/or home medications have been reviewed. Physical Exam: There were no vitals filed for this visit. There is no height or weight on file to calculate BMI. Airway Assessment: Mallampati: I TM distance: >3 FB Neck ROM: full Cardiovascular Assessment: Rhythm: regular Rate: normal Pulmonary Assessment: (+) wheezes and rales Dental Assessment: Comment: Poor dentition but no loose teeth, teeth widely spaced but none obviously missing Misc Assessment: IV access: Peripheral line Anesthesia Plan: ASA 3 general, with a(n) intravenous induction Assessment: Yash Dalton is a 50 y.o. male with a PMH significant for active smoking (40+pk-yr), heavy use of chewing tobacco, daily EtOH, and daily marijuna use with minimal other documented medical history whois scheduled for direct laryngoscopy, nasal endosocpy, otolaryngic exam under anesthesia and wide local excision of posterior triangle mass with possible neck dissection for likely metastatic LN. > 4 METs. Takes no medications. No allergies. - no labs or ekg on record Anesthetic history/Previous airway: never had anesthesia, no FH of problems Plan: - GETA - standard ASA monitors and adequate IV access - Special Monitoring/Lines: 2nd PIV, possible A-line The risks and benefits of our anesthesic plan and viable alternatives were discussed with the patient including the risks of hypotension, arrhythmia, VA, stroke and the extremely rare risk of or awareness under anesthesia. All of the patient's questions were answered. Region - Other Informed Consent: Anesthetic plan and risks discussed with patient. Use of blood products discussed with patient who consented to blood products. Plan discussed with attending. PAT Staff Note documented in this encounter Plan of Treatment Not on filedocumented as of this encounter Visit Diagnoses Not on filedocumented in this encounter Administered Medications Inactive Administered Medications - up to 3 most recent administrations Medication Order MAR Action Action Date Dose Rate Site ceFAZolin (ANCEF) 1g in dextrose 5% Given 07/20/2015 2:52 PM EDT 2 g 50mL PRN, Starting on Thu07/20/15 at 1452, Until Thu07/20/15 at 1818, Administer over 30 Minutes, Anesthesia Intra-op dexamethasone (DECADRON) injection Given 07/20/2015 2:52 PM EDT 4 mg PRN, Starting on Thu07/20/15 at 1452, Until Thu07/20/15 at 1818, Anesthesia Intra-op, Routine dexmedetomidine (PRECEDEX) injection Given 07/20/2015 4:34 PM EDT 40 mcg PRN, Starting on Thu07/20/15 at 1603, Until Thu07/20/15 at 1818, Anesthesia Intra-op, Routine Given 07/20/2015 4:03 PM EDT 20 mcg fentaNYL 50 mcg/mL multi-dose injection Given 07/20/2015 4:34 PM EDT 50 mcg PRN, Starting on Thu07/20/15 at 1438, Until Thu07/20/15 at 1818, Pain, Anesthesia Intra-op, Routine Given 07/20/2015 4:00 PM EDT 25 mcg Given 07/20/2015 3:48 PM EDT 25 mcg HYDROmorphone (DILAUDID) injection Given 07/20/2015 5:49 PM EDT 0.4 mg PRN, Starting on Thu07/20/15 at 1749, Until Thu07/20/15 at 1818, Pain, Anesthesia Intra-op, Routine ketamine (KETALAR) 10 mg/mL bolus injection Given 07/20/2015 3:3 7 PM EDT 20 mg (Anesthesia) PRN, Starting on Thu07/20/15 at 1453, Until Thu07/20/15 at 1818, Anesthesia Intra-op Given 07/20/2015 3:34 PM EDT 30 mg Given 07/20/2015 2:53 PM EDT 50 mg lactated ringers infusion 1,000 mL New Bag 07/20/2015 5:24 PM EDT 1,000 mL, at 100 mL/hr, Intravenous, CONTINUOUS, Starting on Thu07/20/15 at 1230, Until Thu07/20/15 at 1909, Day of Surgery (Day of Procedure) New Bag 07/20/2015 4:42 PM EDT New Bag 07/20/2015 2:25 PM EDT lidocaine (PF) (XYLOCAINE) 100 mg/5 mL (2 %) Given 6 2:38 PM EDT 40 mg injection PRN, Starting on Thu07/20/15 at 1438, Until Thu07/20/15 at 1818, Anesthesia Intra-op, Routine midazolam (PF) (VERSED) 1 mg/mL multi-dose Given 07/20/2015 2:26 PM EDT 2 mg injection PRN, Starting on Thu07/20/15 at 1426, Until Thu07/20/15 at 1818, Sleep, Anesthesia Intra-op, Routine ondansetron (ZOFRAN) injection Given 07/20/2015 5:43 PM EDT 4 mg PRN, Starting on Thu07/20/15 at 1743, Until Thu07/20/15 at 1818, Nausea, Anesthesia Intra-op, Routine PHENYLephrine HCl in NS (PF) (JAYA-SYNEPHRINE) Given 4:44 PM EDT 80 mcg 0.8 mg/10 mL (80 mcg/mL) multi-dose injection Syrg PRN, Starting on Thu07/20/15 at 1644, Until Thu07/20/15 at 1818, Anesthesia Intra-op, Routine propofol (DIPRIVAN) 10 mg/mL bolus injection Given 4:36 PM EDT 50 mg (Anesthesia) PRN, Starting on Thu07/20/15 at 1438, Until Thu07/20/15 at 1818, Anesthesia Intra-op Given 07/20/2015 2:56 PM EDT 100 mg Given 07/20/2015 2:53 PM EDT 100 mg rocuronium (ZEMURON) multi-dose injectio n Given 07/20/2015 2:38 PM EDT 30 mg PRN, Starting on Thu07/20/15 at 1438, Until Thu07/20/15 at 1818, Anesthesia Intra-op, Routine documented in this encounter Care Teams Medical Specialist Relationship Specialty Start Date End Date Jay Campos PA PCP - General General Internal Medicine 07/02/15 08/20/20 [address] [place] [address] documented as of this encounter
--- OUTSIDE RECORDS SUMMARY | 2021-08-09 11:05 | XMS_ITS | Encounter Summary ---
:1965 Author Organization [facility] [place] [address] Care Team Providers Name Role Phone Jay Campos Primary Care Provider Encounter Details Date Type Department Care Team Description 10/15/2015 Unscheduled Encounter Radiation Oncology Astrid Lewis Head and neck cancer at [facility] ISABEL [address] [place] [address] Social History Tobacco Use Types [...] documented as of this encounter Progress Notes Kaycee Lewis RN - 10/15/2015 2:55 PM EDT Radiation Oncology Nursing on Treatment Note Background: Patient asked to be seen following xrt today for refill of msir. Patient has received 6160 cGy to the for treatment of head and neck cancer. Side effects that patient is experiencing: Throat pain which he rates at 12/10, Neck skin pain ratesat 15/10. States that he had an awful weekend. Reports he continues to eat soft foods and drink fluids but states that it is getting harder due to pain. Anticipatory guidance/ interventions: Provided aquaphor to try for skin reaction as well as current topical agents. Dr. Scarlet mckee. Plan: :Please see Brandy Sifuentes, RN note from today for response, intervention to and follow upplan resulting from Dr. Scarlet patrick documented in this encounter Plan of Treatment Upcoming Encounters Date Type Specialty Care Team Description 08/09/2021 Ancillary Procedure Radiology Paige Pérez MD Arrived [facility] ER NEUROLOGY DEPT [place], [place] [address] (Wo rk) documented as of this encounter Visit Diagnoses Diagnosis Head and neck cancer Malignant neoplasm of head, face, and ne ck documented in this encounter Care Teams Remelt Worker Relationship Specialty Start Date End Date Jay Campos PA PCP - General General Internal Medicine 07/02/15 08/20/20 [address] [place] [address] documented as of this encounter
--- OUTSIDE RECORDS SUMMARY | 2021-08-09 11:05 | XMS_ITS | Encounter Summary ---
:1965 Author Organization [facility] [place] [address] Care Team Providers Name Role Phone Mckayla Santana APRN Primary Care Provider [phone] Encounter Details Date Type Department Care Team Description 06/29/2015 Hospital [place] [address] Social History Tobacco Use Types Packs/Day Years Used Date Never Assessed Sex Assigned at Date Recorded Not on file documented as of this encounter Plan of Treatment Not on filedocumented as of this encounter Procedures Procedure Name Priority Date/Time Associated Diagnosis Comme nts NON-CELL ATTENDANT HELPER FINAL Routine 06/29/2015 1:20 PM Results for this REPORT EDT procedure are i n the results section. documented in this encounter Results Non-[place] Final Report (06/29/2015 1:20 PM EDT) Component Value Ref Test Analysis Performed At [facility] Range Method Time Signature Non-[place] [id number] ?Location: [facility] Final Report POUND The signing pathologist has (i) examined the relevant preparation(s) for the [facility] specimen(s) and (ii) rendered or confirmed the diagnosis(es) . HOSP[facility] LAB[facility]ORY . ? No n-[place] Final DIAGNOSIS See Comment 07/02/15 ?Screened by: ? SLA ?Rescreened by: ?? EJG,EJG 07/09/15 ?Verified by: ? Kwame Barker MD ? Cytopathologis t ? (Electronic Si gnature) DISCUSSION Lymph node: left neck (FNA) - Hypocellular sample containi ng a few small groups of epithelioid cells and a few histiocytes. There is no definite evidence of lymph node sa mpling. Non-diagnostic. The material might not be fully fundraising sale representative of the target lesion. CLINICAL INFORMATION CONSULTATION CASE Lymph node: left neck (FNA) Clinical History: Smoker; h/ o large basal cell carcinoma of the scalp treated with radiation 6 years ago; chew s tobacco; left posterior triangle fixed mass by E.J measuring 2 x 2 x 1.5cm; no direct skin connection. Received 1 slide(s) labeled [id number] Received 0 block(s). Specimen collection date: ??06/18/2015 For the full text of the [facility] report(s), please refer to [facility]. [facility] [place] #: ??[id number]. Report to: [facility] Cytopathology [address] [place] [address] Specimen (Source) Anatomical Collection Method Collection Time Re ceived Time Location / / Volume Laterality 06/29/2015 1:20 PM EDT Leonardo Hansen MD PATHOLOGY/CYTOLOGY ORDERABLE S Performing Organization Address City/State/[place] [address] documented in this encounter Visit Diagnoses Not on filedocumented in this encounter Care Teams Engineer Conductor Relationship Specialty Start Date End Date Mckayla Santana APRN PCP - General 06/22/12 07/01/15 [address] [place] [address] documented as of this encounter
--- OUTSIDE RECORDS SUMMARY | 2021-08-09 11:05 | XMS_ITS | Encounter Summary ---
:1965 [place] [address] Care Team Providers Name Role Phone Jay Campos Primary Care Provider Reason for Visit Auth/Cert Specialty Diagnoses / Procedures Referred By Contact Refer red To Contact Diagnoses Posterior triangle neck mass Procedures PRO REMOVAL NODES, NECK, CERV MOD RAD @CERVICAL LYMPHADENECTOMY (MODIFIED RADICAL NECK DISSECTION) Referral ID Status Reason Start Date Expiration Date Visits Requ ested Visits Authorized [id number] 1 1 Encounter Details Date Type Department Care Team Description 07/20/2015 Surgery Main Operating Room Leonardo Hansen @ RVICAL LYMPHADENECTOMY Haley Mao MD (MODIFIED RADICAL NECK [facility] DISSECTION) (WRVU 23.95) [facility] [place] [address] DEPT. [phone] [place], [place] [address] Social History Tobacco Use Types [...] Sign Reading Time Taken Comments Blood Pressure 129/79 07/20/2015 12:19 PM EDT Pulse 69 07/20/2015 12:19 PM EDT Temperature 37.1 ??C (98.8 ??F) 07/20/2015 12:19 PM EDT Respiratory Rate 18 07/20/2015 12:19 PM EDT Oxygen Saturation 99% 07/20/2015 12:19 PM EDT Inhaled Oxygen Concentration - - [...] -You can reach the ENT clinic at [phone] for appointment questions. -The ENT triage nurse is available at [phone] -For urgent issues during evenings and weekends the ENT resident almond paste mixer can be reached through the main hospital injection press operator at [phone] documented in this encounter Medications at Time [...] David MD - 07/20/2015 6:15 PM EDT [facility] Operative Note Patient Name: Yash Dalton : [id number] MR#: [id number] Case Date: 07/20/2015 Surgeon: Surgeon(s) and Role: [...] Operative Note Patient Name: Yash Dalton : [id number] MR#: [id number] Case Date: 07/20/2015 Surgeon: Surgeon(s) and Role: [...] Operative Note Patient Name: Yash Dalton : [id number] MR#: [id number] Case Date: 07/20/2015 Surgeon: Surgeon(s) and Role: [...] PM 6 5:37 EDT PM EDT Narrative [facility] - 07/20/2015 5:37 PM EDT Specimen requisition ordered. ??Separate Pathology report to follow Leonardo Hansen MD PATHOLOGY/CYTOLOGY ORDERABLE S Performing Organization Address [facility] [place] [address] Specimen to Pathology (surgical or derm) (07/20/2015 3:24 PM EDT) Specimen Anatomical Collection Method Collection Time Receive d Time (Source) Location / / Volume Laterality AP Specimen 07/20/2015 3:24 PM 6 3:24 EDT PM EDT Narrative [facility] - 07/20/2015 3:24 PM EDT Specimen requisition ordered. ??Separate Pathology report to follow Leonardo Hansen MD PATHOLOGY/CYTOLOGY ORDERABLE S Performing Organization Address City/[facility] [place] [address] Specimen to Pathology (surgical or derm) (07/20/2015 3:24 PM EDT) Specimen Anatomical Collection Method Collection Time Receive d Time (Source) Location / / Volume Laterality AP Specimen 07/20/2015 3:24 PM 6 3:24 EDT PM EDT Narrative [facility] OR - 07/20/2015 3:24 PM EDT Specimen requisition ordered. ??Separate Pathology report to follow Leonardo Hansen MD PATHOLOGY/CYTOLOGY ORDERABLE S Performing Organization Address [facility]/ZIP [facility] [place] [address] Specimen to Pathology (surgical or derm) (07/20/2015 3:24 PM EDT) Specimen Anatomical Collection Method Collection Time Receive d Time (Source) Location / / Volume Laterality AP Specimen 07/20/2015 3:24 PM 6 3:24 EDT PM EDT Narrative [facility] - 07/20/2015 3:24 PM EDT Specimen requisition ordered. ??Separate Pathology report to follow Leonardo Hansen MD PATHOLOGY/CYTOLOGY ORDERABLE S Performing Organization Address [facility] [place] [address] [facility] (07/20/2015 3:20 PM EDT) [facility] Method Time [facility] HALEY Test ? Result ? Flag ??Unit ??RefValue [place] [facility] MYB (6q23), FISH, [facility] ??Result Summary ? Negative LABORATORY ??Interpretation ? SEE COMMENTS No rearrangement of the MYB gene region was identified. Clinical and pathologic correlation is recommended. ??Result ? SEE COMMENTS nuc nixon(MYBx3-4)[52/100] Abnormality ? Cutoff(%) 6q23.3(MYB sep) ? <5.0 +6q23.3(MYBx3) ?<8.0 ??Reason for Referral r/o 6q23.3 MYB gene rearrangement ??Specimen ? Tissue, Paraffin ??Source ? Left neck level 5 ??Tissue ID ?[id number] ??Method ? SEE COMMENTS Locus and probes ? [Strategy;#Nucle i;Class] 6q23(5'MYB,3'MYB) ? [BAP;100;ASR] Probe strategies include: BAP=break-apart probe. ??Disclaimer ? SEE COMMENTS Laboratory Developed Test (LDT). This test was developed and its performance characteristics determined by [facility]. It has not been cleared or approved by the U.S. Food and Drug Administration. This FISH test does not rule out other chromosome abnormalities. ??Released By ?Harvinder Uribe M.D. Test Performed by: [address] [address] Behavioral Health Clinician: Harvinder Siegel II, M.D., Ph.D. Specimen Anatomical Collection Method Collection Time Receive d Time (Source) Location / / Volume Laterality Specimen of Other / Unknown 07/20/2015 3:20 PM 2015 unknown material EDT 11:04 AM ED T (specimen) Resulting Agency Comment Spec In Lab Una Benjamin MD CHEMISTRY ORDERABLES Performing Organization Address City/State/ZIP [place] [address] Surgical Pathology Report (07/20/2015 3:20 PM EDT) Component Value Ref Test Analysis Performed At [facility] gist Range Method Time Signature Surgical ? Location: [facility]; [facility]; A [facility] Report The signing pathologist has (i) examined the relevant preparation(s) for the [facility] specimen(s) and (ii) rendered or confirmed the diagnosis(es) . HOSPITAL LABORATORY . ? Addendum ADDENDUM DISCUSSION SPECIAL TEST PERFORMED: Test: ??MYB (6q23), FISH, Ts [facility] Case: ??[id number] Performing Lab: ??[facility] Reported by Harvinder Uribe MD Date reported: ??08/13/15 For the full text of the [facility] report(s) please refer t o [facility] Pathology in the electronic health record (eDH). 08/27/15 DLD 08/27/15 Verified by: ? Sourav FARRIS, Una Johnson [...] b iopsy from 2003 was retreived from [facility] for comparison; the biopsy is superficial and shows basal cell carcinoma which is transected at the base. ??P er report, the scalp lesion in 2003 measured 3.0 cm in diameter and was present for approximately 8 months prior t o biopsy. This histopathology of the c urrent neck mass was also reviewed with Dr. Krystal Swanson in dermatopathology who als o favors this being a dermal metastasis with basal cell features and focal squamous differentiation (focal keratinization and basaloid appearance). It is favored to be of skin origin, either the prior scalp lesion or another skin lesion. HPV genotyping was negative for all HPV genotypes evaluated. ??MYB FISH performed at [facility] was negative for MYB rearrangment. Clinical pathologic [...] 0.4 cm. The portion of skin is etsevez-brown and grossly without lesions. LESION Size: Roughly 2.2 x 1.2 x 1.1 cm Description: Firm, estevez-white. Margin: 0.1 cm away grossly. Location: 0.4 cm deep to skin. Sections/Processing: The deep margin is inked in blue. (1) largest lymph node, bisected; (2-4) each contai nii two bisected lymph nodes, differentially inked; (5) passenger service representative of skin; (6-8) skin and deep lesion. ??(R7) apm ?[facility] [employer] RESULTS ?Human Papillomavirus (HP V) Genotyping Analysis Indication for Study: ?? Posterior triangle neck mass Specimen: ?? Left level, 5 resection (D6-7) Analysis: ?? HPV Genotyping by [employer] Linear Array HPV Genoty ping Test Results: [...] developed and its performance determined by the [facility] Molecular Pathology ??Laboratory. It has not been [...] testing . References: ?? Tyesha TW, Nara lewis DH. Biochemistry 1991;30:8194-3462; Rahul GOLDSTEIN, et al. J pathol 1999;189:12-19; Mustapha PE, et al. J C melissa Microbiol 2000 [...] Organization Address City/State/[place] [address] documented in this encounter Visit Diagnoses Diagnosis Neck mass Swelling, mass, or lump in head and neck Neck mass Swelling, mass, or lump in [...] sources in 24 hours., Routine bacitracin ointment Given 07/20/2015 5:51 PM EDT 1 Tube 19- S urgical Site ONCE PRN, Starting on Thu07/20/15 at 1751, Until Thu07/20/15 at 2117, Intra-Operative (Intra-Procedure) lidocaine-EPINEPHrine 1 Given 07/20/2015 3:00 PM 9 mLs 19- Surgical Site %-1:200,000 injection EDT ONCE PRN, Starting on Thu07/20/15 at 1500, Until Thu07/20/15 at 2117, Intra-Operative (Intra-Procedure), Routine oxyCODONE [...] g Thu07/20/15 at 1810, Until Thu07/20/15 at 2117, Pain, Maximum dose of acetaminophen is 4000 [...]
Routine documented in this encounter Care Teams Box Spring Maker Relationship Specialty Start Date End Date Jay Campos PA PCP - General General Internal Medicine 07/02/15 08/20/20 [address] [place] [address] documented as of this encounter
--- OUTSIDE RECORDS SUMMARY | 2021-08-09 11:05 | XMS_ITS | Encounter Summary ---
:1965 Author Organization [facility] [place] [address] Care Team Providers Name Role Phone Jay Campos Primary Care Provider Encounter Details Date Type Department Care Team Description 07/13/2015 Telephone Otolaryngology at [facility] [address] Social History Tobacco Use Types Packs/Day Years Used Date Current Every Day Smoker Cigarettes 0.25 15 Smokeless Tobacco: Current User Chew Comments: Pt states he Chews more than h e smokes Sex Assigned at Date Recorded Not on file documented as of this encounter Miscellaneous Notes Telephone Encounter - Elias Dennis - 07/13/2015 8:11 AM EDT Booked surgery in clinic, confirmed surgery date of 07/19 instruction packet given. documented in this encounter Plan of Treatment Not on filedocumented as of this encounter Visit Diagnoses Not on filedocumented in this encounter Care Teams Materials Assistant Relationship Specialty Start Date End Date Jay Campos PA PCP - General General Internal Medicine 07/02/15 08/20/20 [address] [place] [address] documented as of this encounter
--- OUTSIDE RECORDS SUMMARY | 2021-08-09 11:05 | XMS_ITS | Encounter Summary ---
:1965 [place] [address] Care Team Providers Name Role Phone Jay Campos Primary Care Provider Reason for Visit Reason Comments Post Op Encounter Details Date Type Department Care Team Description 07/26/2015 Office Visit Otolaryngology at [facility] Jay Jaramillo PA Neck [facility] [place] [address] [place] [address] OTOLARYNGOLOGY DEPT. [phone] [place], [place] [address] (Wo rk) Social History Tobacco [...] Pressure - - Pulse - - Temperature 36.4 ??C (97.5 ??F) 07/26/2015 11:33 AM EDT Respiratory Rate - - Oxygen Saturation - - Inhaled Oxygen Concentration - - Weight 65 kg (143 lb 4.8 oz) 07/26/2015 11:33 AM EDT Height 167.6 cm (5' 6) 07/26/2015 11:33 AM EDT Body Mass Index 23.13 07/26/2015 11:33 AM EDT documented in this encounter Progress Notes Jay Jaramillo PA - 07/26/2015 11:33 AM EDT Head [facility] Neck Tumor Clinic Follow up Note: Yash Dalton is 50 years of age and is status post: Case Date: 07/20/2015 Surgeon: Surgeon(s) and Role: Panel 1: * Leonardo Hansen MD - Primary * Kendall David MD * Joseph Browne MD Panel 2: * Leonrado Hogan MD - Primary * Saadia Tariq [...] tumor invasion, and was reanastomosed using C4. HPI/Surgical Indications: Yash is a 50 yo male with a left posterior triangle neck mass with indeterminate FNA cytology and radiologic appearance concerning for malignancy. He presents to the OR todayfor left level V neck dissection with direct laryngoscopy. Postoperatively the patient reports he is done well. He is still getting pain in the neck up to the level of 7 out of 10. He took his last oxycodone just prior to his visit today. He has noted no evidence of infection. He feels the incision is healing well. He is doing exercise for his shoulder. He denies any dysphagia or throat pain. On examination the neck incision is healing very well without evidence of dehiscence or infection. [place] were removed. There is approximately 1 mL in his drain that was changed early this morning. This was removed. Unfortunately, pathology is not available today. With no information to suggest follow-up treatment the patient will be set up to see Dr. Hansen next week to discuss future management plans. He was advised to call should he note any concerning symptoms. Jay Jaramillo PA-C Department of Otolaryngology [facility] [place] [address] Office Phone - documented in this encounter Plan of Treatment Not on filedocumented as of this encounter Visit Diagnoses Diagnosis Neck mass Swelling, mass, or lump in head and neck documented in this encounter Care Teams Warning Analyst Relationship Specialty Start Date End Date Jay Campos PA PCP - General General Internal Medicine 07/02/15 08/20/20 [address] [place] [address] documented as of this encounter
--- OUTSIDE RECORDS SUMMARY | 2021-08-09 11:05 | XMS_ITS | Encounter Summary ---
:1965 Author Organization [facility] [place] [address] Care Team Providers Name Role Phone Jay Campos Primary Care Provider Encounter Details Date Type Department Care Team Description 08/21/2015 Orders Only Radiation Oncology at [facility] Johns RN [address] [place] [id number] Social History Tobacco Use Types Packs/Day [...] ck documented in this encounter Care Teams Tie Maker Relationship Specialty Start Date End Date Jay Campos PA PCP - General General Internal Medicine 07/02/15 08/20/20 [address] [place] [address] documented as of this encounter
--- OUTSIDE RECORDS SUMMARY | 2021-08-09 11:06 | XMS_ITS | Encounter Summary ---
:1965 Author Organization [facility] [place] [address] Care Team Providers Name Role Phone Mckayla Santana APRN Primary Care Provider [phone] Encounter Details Date Type Department Care Team Description 06/29/[address] [facility] [place] [address] Social History Tobacco Use Types Packs/Day Years Used Date Never Assessed Sex Assigned at Date Recorded Not on file documented as of this encounter Miscellaneous Notes Telephone Encounter - Trupti Logan - 06/29/2015 8:29 AM EDT Rec'd. path slides today from [facility], sent to our path. lab documented in this encounter Plan of Treatment Not on filedocumented as of this encounter Visit Diagnoses Not on filedocumented in this encounter Care Teams Working Second Hand Relationship Specialty Start Date End Date Mckayla Santana APRN PCP - General 06/22/12 07/01/15 [address] [place] [address] documented as of this encounter
--- OUTSIDE RECORDS SUMMARY | 2021-08-09 11:06 | XMS_ITS | Encounter Summary ---
:1965 Author Organization [facility] [place] [address] Care Team Providers Name Role Phone Mckayla Santana APRN Primary Care Provider [phone] Reason for Visit Reason Comments Establish Care Upper body rash Encounter Details Date Type Department Care Team Description 07/22/2012 Office Visit Dermatology Dieter Fernandez, Dermatographism (Primary [address]) [address] [place] [address] [place] [address] DERMATOLOGY [phone] [place] [address] Social History Tobacco Use Types Packs/Day Years Used Date Never Assessed Sex Assigned at Date Recorded Not on file documented as of this encounter Progress Notes Dieter Fernandez MD - 07/22/2012 8:40 AM EDT Problem: Pruritus. Yash is a 47-year-old gentleman who is referred today by Mckayla Santana in consultation regarding a rash that has been three months in duration. He noticed it one morning when he got out the shower that he was red and blotchy and quite itchy, this despite no change in his medications or topical creams, lotions, detergents, etc. He has been treated with short course of prednisone with only temporary relief. He has been treated with Zantac and Claritin with only partial response. While the rash has faded, he still tends to be a bit red and blotchy at times and has pruritus of the axillary vaults. 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 His fiancee at home has no pruritus herself. He states he has been well, is on no medications, had no fevers, flus, colds, any infections back three to four months ago when this first began. Per Dr. Rico's note, he does smoke a joint of marijuana or two on weekends and has been doing this for 30 years. Physical examination reveals a pleasant 47-year-old who has dermatographism with light stroking of his back. He has some patchy erythema of the arms. He has slight erythema of the axillary vault. Otherwise, he has no prominent dermatologic findings on careful examination of the head and the neck, the chest and back, hands, arms, forearms, thighs, and calves. Assessment and Plan: 1. Dermatographism. a. Trigger for this would be elusive and is unclear from history taking. b. Did recommend avoiding fragranced soaps, detergents, and using fragrance-free products. The trend has been towards improvement and I think with time this will resolve with symptomatic therapy alone. c. Begin Atarax 25 mg one to two p.o. q.h.s. for symptomatic relief of his pruritus, #60 dispensed with one refill. d. Recommend that he take Claritin every day in the mornings. He will call me in a week if this is not showing improvement. e. If he is not seeing improvement, would suggest that he also stop his weekend marijuana, to see if this might in fact be playing a role. COPY: JEREMY Dubon documented in this encounter Plan of Treatment Not on filedocumented as of this encounter Visit Diagnoses Diagnosis Dermatographism - Primary Dermatographic urticaria documented in this encounter Care Teams Director Sports Relationship Specialty Start Date End Date Mckayla Santana APRN PCP - General 06/22/12 07/01/15 [address] [place] [address] documented as of this encounter
--- OUTSIDE RECORDS SUMMARY | 2021-08-09 11:08 | XMS_ITS | Encounter Summary ---
:1965 Author Organization [facility] Address [address] [place] [address] Care Team Providers Name Role Phone Amanda Rico MD Primary Care Provider Unknown, Provider Primary Care Provider Encounter Details Date Type Department Care Team Description 08/17/2003 [facility] [address] [place] [address] Social History Tobacco Use Types Packs/Day Years Used Date Never Assessed Sex Assigned at Date Recorded Not on file documented as of this encounter Plan of Treatment Not on filedocumented as of this encounter Procedures Procedure Name Priority Date/Time Associated Diagnosis Comme nts CT HEAD WO CONTRAST Routine 09/07/2003 12:26 Resu lts for this EDT procedure are i n the results section. documented in this encounter Results CT HEAD WO CONTRAST (09/07/2003 12:26 EDT) Anatomical Region Laterality Modality Other Specimen Impressions [facility] - 10/31/2008 9: 16 EDT IMPRESSION: Study done for treatment planning. No de finite intracranial or bony extension of the patient's superficial l eft-sided skin cancer. The study is not done with diagnostic techni que, however, and if there is any concern for bony extension, thinner cuts might be helpful to evaluate if indicated. /maddie Narrative [facility] - 10/31/2008 9: 16 EDT SHEP [address] H/O SKIN CA WITH LARGE MASS ON SCALP TREATMENT PL ANNING-MVP CT SCAN OF THE BRAIN WITHOUT CONTRAST FO R TREATMENT PLANNING. Superficial soft tissue mass over the co nvexity posteriorly on the left is noted in keeping with given hist ory of skin cancer. There does not appear to be any extension to b one or intracranial extension. The ventricles and sulci are normal. No masses or other focal intracranial abnormality is seen. Incide ntal note of right maxillary sinus retention cyst. No other lesions. Procedure Note Mehrdad Long MD - 10/31/2008 [address] H/O SKIN CA WITH LA RGE MASS ON SCALP TREATMENT PL ANNING-MVP CT SCAN OF THE BRAIN WITHOUT CONTRAST FO R TREATMENT PLANNING. Superficial soft tissue mass over the co nvexity posteriorly on the left is noted in keeping with given hist ory of skin cancer. There does not appear to be any extension to b one or intracranial extension. The ventricles and sulci are normal. No masses or other focal intracranial abnormality is seen. Incide ntal note of right maxillary sinus retention cyst. No other lesions. IMPRESSION IMPRESSION: Study done for treatment planning. No de finite intracranial or bony extension of the patient's superficial l eft-sided skin cancer. The study is not done with diagnostic techni que, however, and if there is any concern for bony extension, thinner cuts might be helpful to evaluate if indicated. /maddie Performing Organization Address City/State/ZIP Code Phon e Number [facility] [address] [facility], [facility] [address] [facility] [address] [place], [place] [address] documented in this encounter Visit Diagnoses Not on filedocumented in this encounter Care Teams Chemical Engineering Technician Relationship Specialty Start Date End Date Amanda Rico MD PCP - General 12/23/14 06/25/15 [address] [place] [address] Unknown, MD Yenni PCP - General 06/26/15 documented as of this encounter
--- OUTSIDE RECORDS SUMMARY | 2021-08-09 11:08 | XMS_ITS | Encounter Summary ---
:1965 Author Organization [facility] Address [address] [place] [address] Care Team Providers Name Role Phone Amanda Rico MD Primary Care Provider Encounter Details Date Type Department Care Team Description 06/18/2015 Results Only [facility]- Jeremy Guillen MD [phone] [place] [address] [address] [place], [place] [id number] (Wo rk) Social History Tobacco Use Types Packs/Day Years Used Date Never Assessed Sex Assigned at Date Recorded Not on file documented as of this encounter Plan of Treatment Not on filedocumented as of this encounter Procedures Procedure Name Priority Date/Time Associated Diagnosis Comme [facility] CYTOPATHOLOGY Routine 06/18/2015 0:00 EDT Results for this procedure are i n the results section . documented in this encounter Results CYTOPATHOLOGY (06/18/2015 0:00 EDT) Pathology Report: CYTOPATHOLOGY REPORT [facility] Reports generated via electronic interface contain nj ginal data; SERVICES however they are lacking the format of the original re port. Caution should be taken when reading/interpreting unfo rmatted reports. Name: ? OLAMIDE ALBARADO ? Accession #: ? [id number] : ? 1965 (Age: 50) ??M ?Collect Date: ? 2015 Location: ? [facility] ? Receive Date: ? 06/20/2015 Provider: ? JEREMY FULTON MD Copy to: ? CYTOLOGIC DIAGNOSIS: LYMPH NODE, LEFT NECK, FINE NEEDLE ASPIRATION: - Non-diagnostic material. ??See comment. ? COMMENT: Microscopy reveals a low cellularity sample, containin g rare groups of very small benign epithelial cell s, possibly of parotid acinar derivation. ??There is NO evidence of metastatic ca rcinoma in this material, nor is there evidence of a lymphoid background. ??A single multinuc leated histiocyte has been identified. (Dr. Marino)/[facility] Document reviewed and electronically signed by: ? JAZZY MARINO MD [facility] Report Date: ??06/20/2015 15:06 By the signature above, the attending physician certif ies that he/she has personally conducted a gross and/or microscopic examin ation of the described specimens and rendered or confirmed the above diagnosi s. Specimen Type: ? Lymph Node, Fine Needle Aspiration, Left neck Clinical History: ? Smoker; H/O large basal cell carcinoma of the scalp tr eated with radiation 6 years ago; chews tobacco; le ft posterior triangle fixed mass by E.J measuring 2 x 2 x 1.5cm; no direct skin connection. ?? clinical diagnosis code: ??R22.1. ? Gross Description: ? One vial of Cytolyt was rece ived and processed by selective cellular enhancement technique. ? End of Report Specimen Performing Organization Address City/State/ZIP Code Phon e Number [facility] [address] [place] [address] SERVICES documented in this encounter Visit Diagnoses Not on filedocumented in this encounter Care Teams Solution Specialist Relationship Specialty Start Date End Date Amanda Rico MD PCP - General 12/23/14 06/25/15 [address] [place] [address] documented as of this encounter
--- OUTSIDE RECORDS SUMMARY | 2021-08-09 11:08 | XMS_ITS | Encounter Summary ---
:1965 Author Organization [facility] Address [address] [place] [address] Care Team Providers Name Role Phone Amanda Rico MD Primary Care Provider Encounter Details Date Type Department Care Team Description 06/18/[address] [facility] - S Unknown, Pro Lizbeth larios MD [address] [facility] [phone] [place] [address] (Work) [phone] Social History Tobacco Use Types Packs/Day Years Used Date Never Assessed Sex Assigned at Date Recorded Not on file documented as of this encounter Discharge Disposition Disposition Code Departure Means Destination Home or Self Shelter documented in this encounter Plan of Treatment Not on filedocumented as of this encounter Visit Diagnoses Not on filedocumented in this encounter Care Teams Cargo Service Agent Relationship Specialty Start Date End Date Amanda Rico MD PCP - General 12/23/14 06/25/15 [address] [place] [address] documented as of this encounter
--- OUTSIDE RECORDS SUMMARY | 2021-08-09 11:08 | XMS_ITS | Encounter Summary ---
:1965 Author Organization [facility] Address [address] [place] [address] Care Team Providers Name Role Phone Amanda Rico MD Primary Care Provider Unknown, Provider Primary Care Provider Encounter Details Date Type Department Care Team Description 01/17/2004 Hospital En[facility] [address] [place], [place] [id number] Social History Tobacco Use Types Packs/Day Years Used Date Never Assessed Sex Assigned at Date Recorded Not on file documented as of this encounter Plan of Treatment Not on filedocumented as of this encounter Visit Diagnoses Not on filedocumented in this encounter Care Teams Cosmetician Relationship Specialty Start Date End Date Amanda Rico MD PCP - General 12/23/14 06/25/15 [address] [place] [address] Unknown, MD Yenni PCP - General 06/26/15 documented as of this encounter
--- OUTSIDE RECORDS SUMMARY | 2021-08-09 11:08 | XMS_ITS | Encounter Summary ---
:1965 Author Organization [facility] Address [address] [place] [address] Care Team Providers Name Role Phone Amanda Rico MD Primary Care Provider Unknown, Provider Primary Care Provider Encounter Details Date Type Department Care Team Description 09/17/2003 [facility] [address] [place] [place], [place] [address] Social History Tobacco Use Types Packs/Day Years Used Date Never Assessed Sex Assigned at Date Recorded Not on file documented as of this encounter Plan of Treatment Not on filedocumented as of this encounter Visit Diagnoses Not on filedocumented in this encounter Care Teams Android Platform Developer Relationship Specialty Start Date End Date Amanda Rico MD PCP - General 12/23/14 06/25/15 [address] [place] [address] Unknown, MD Yenni PCP - General 06/26/15 documented as of this encounter
--- OUTSIDE RECORDS SUMMARY | 2021-08-09 11:08 | XMS_ITS | Encounter Summary ---
:1965 Author Organization [facility] Address [address] [place] [address] Care Team Providers Name Role Phone Amanda Rico MD Primary Care Provider Unknown, Provider Primary Care Provider Encounter Details Date Type Department Care Team Description 10/18/2003 [facility] [address] [place], [place] [address] Social History Tobacco Use Types Packs/Day Years Used Date Never Assessed Sex Assigned at Date Recorded Not on file documented as of this encounter Plan of Treatment Not on filedocumented as of this encounter Visit Diagnoses Not on filedocumented in this encounter Care Teams Button Sewing Machine Operator Relationship Specialty Start Date End Date Amanda Rico MD PCP - General 12/23/14 06/25/15 [address] [place] [address] Unknown, MD Yenni PCP - General 06/26/15 documented as of this encounter
--- OUTSIDE RECORDS SUMMARY | 2021-08-09 11:08 | XMS_ITS | Encounter Summary ---
:1965 Author Organization [facility] Address [address] [place] [address] Care Team Providers Name Role Phone Unavailable Primary Care Provider Unavailable Encounter Details Date Type Department Care Team Description 08/04/2003 Results Only [facility] - Belia Carlton, Chr istopher, conversion DO [address] [facility] [address] [facility] [address] [place] [address] [place] [address] (Wo rk) Social History Tobacco Use Types Packs/Day Years Used Date Never Assessed Sex Assigned at Date Recorded Not on file documented as of this encounter Plan of Treatment Not on filedocumented as of this encounter Procedures Procedure Name Priority Date/Time Associated Diagnosis Comme nts SURGICAL PATHOLOGY Routine 08/04/2003 0:00 EDT Re sults for this procedure are i n the results section. documented in this encounter Results SURGICAL PATHOLOGY (08/04/2003 0:00 EDT) Pathology Report: SURGICAL PATHOLOGY REPORT [facility] Reports generated via electronic interface contain nj ginal data; LAB however they are lacking the format of the original re port. Caution should be taken when reading/interpreting unfo rmatted reports. Name: ? OLAMIDE ALBARADO ? Accession #: ? [id number] ? : ? 1965 (Age: 38) ??M ? Collect Date: ? 08/04/2003 ? Location: ? [facility] ? Receive Date: ? 004 ? Provider: SHILA CARLTON DO Copy to: ANG SALDIVAR MD ? Final Pathologic Diagnosis: ? Skin of scalp, biopsy: 1. ?Basal cell carcinoma, nodular type. ? - Basal cell carcinoma extends to edge and base of biopsy specimen. Microscopic Description: ? Irregularly shaped is lands of atypical basal cells infiltrate the dermis. The basal cells have scant c ytoplasm and round dark nuclei. ??Mitotic figures and apoptotic bodies are evident . ??The nuclei at the periphery of the islands have a palisaded arrangement. ??The islands are associated with a fibromyxoid stroma and there is cleft formation bet ween some of the islands and stroma. ??(Dr. Escudero)/[facility] Document reviewed and electronically signed by: Rhea Escudero MD Report ??Date: 08/08/2003 14:04 By the signature above, the attending physician certif ies that he/she has personally conducted a gross and/or microscopic examin ation of the described specimens and rendered or confirmed the above diagnosi s. Specimen(s) Received: ? Scalp lesion Clinical History: ? Lesion, 3.0 cm in miryam meter on scalp. ??Present x 8 months. ??Bleeds easily. Gradually increasing in size. ??Clinical diagnosis cod e: 238.2 Gross Description: ? Received in formalin labelled Krystle and scalp lesion are two 0.2 cm in diameter portions of estevez-bro wn finely granular skin, both excised to a depth of 0.1 cm. ??Also received in the same container are two 0.1 x 0.1 x 0.1 cm estevez-white irregular tissues. ??The specimen is entirel y submitted in one cassette. ??(Dr. Cheng)/[facility] End of Report Specimen Performing Organization Address City/State/ZIP Code Phon e Number [facility] [address] [place] [address] SERVICES [facility] [address] [place] [address] documented in this encounter Visit Diagnoses Not on filedocumented in this encounter
[2021-08-09 11:47] LABS: Source Nasal/Nares
[2021-08-09] MEDS: Omnipaque 350 MG/ML 100 ML BTL IJ ×2 (12:32→12:33)
[2021-08-09] MEDS: Normal Saline Flush 10 ML SYR IVP (12:35)
--- NOTE | 2021-08-09 12:35 | DI.CT_ITS ---
Exam(s) CT BRAIN NECK CTA EXAM: CT BRAIN NECK CTA CLINICAL HISTORY: R arm weakness, L occipital/parietal lobe infarct. TECHNIQUE: Imaging Protocol: Axial CT angiography was performed with multi-slice acquisition and mu lti-planar and/or 3D reconstructions. CONTRAST MATERIAL: Intravenous: Omnipaque 350ml contrast volume:85 mL COMPARISON: No exams were available for comparison FINDINGS: CT Head w: Ventricles and Extra axial spaces: Normal in size and morphology for the patient's age. Hemorrhage: None. Cerebral parenchyma: There is an old right posterior parietal infarct. Midline shift: None. Brainstem/Cerebellum: Normal. Calvarium: Normal. Visualized Paranasal sinuses/Mastoids: Mucous retention cysts or polyps are seen in the maxillary sin uses bilaterally. There is mucosal thickening seen in the right maxillary sinus. The remaining visu alized paranasal sinuses are clear. Soft Tissues: Unremarkable. Enhancement: Unremarkable. CTA Neck W: Common Carotid: Right: No dissection, occlusion or significant stenosis. Left: There is almost 50 percent occlusion of the distal left common carotid artery just proximal to the bifurcation. External Carotid: Right: There is near complete occlusion of the proximal right external carotid artery at its origin. Left: There is occlusion of the origin of the left external carotid artery. Internal Carotid: Right: There is near complete occlusion of the proximal right internal carotid artery at its origin. Left: No dissection, occlusion or significant stenosis. Vertebral Artery: Right: No dissection, occlusion or significant stenosis. Left: No dissection, occlusion or significant stenosis. Left subclavian artery: There is thrombus seen at the origin of the left subclavian artery. Less gem n 50 percent narrowing of the lumen is noted. Lung Apices: Normal. Bones: Within normal limits for the patient's age. Degenerative changes in the cervical spine. Soft Tissues: Normal. Thyroid gland: Unremarkable. CTA Brain W: Internal Carotid Arteries: Normal. Anterior Cerebral Arteries: Right: No aneurysm, occlusion or significant stenosis. Left: No aneurysm, occlusion or significant stenosis. Middle Cerebral Arteries: Right: No aneurysm, occlusion or significant stenosis. Left: No aneurysm, occlusion or significant stenosis. Posterior Cerebral Arteries: Right: No aneurysm, occlusion or significant stenosis. Left: No aneurysm, occlusion or significant stenosis. Vertebral Arteries: Right: No aneurysm, occlusion or significant stenosis. Left: No aneurysm, occlusion or significant stenosis. Basilar Artery: No aneurysm, occlusion or significant stenosis. IMPRESSION: 1. No large vessel occlusion or significant stenosis on the CT angiography of the head. 2. No acute intracranial process. 3. Almost 50 percent occlusion of the distal left common carotid artery just proximal to the bifurcat ion. 4. Occlusion at the origin of the left external carotid artery. Near complete occlusion at the origi n of right external carotid artery. 5. Near complete occlusion of the right internal carotid artery at its origin. 6. Less than 50 percent occlusion at the origin of the left subclavian artery. 7. Results of this exam have been verbally communicated with provider. RADIATION DOSE DELIVERED: 1,100.5mGy.cm Total DLP DATA REPOSITORY: All CT scans at this facility are submitted to the National Radiology Data Registry (NRDR) Dose Index Registry (DIR) with the [employer] (ACR). RADIATION OPTIMIZATION: All CT scans at this facility use at least one of these dose optimization te chniques: automated exposure control; mA and/or kV adjustment per patient size (includes targeted exa ms where dose is matched to clinical indication); or iterative reconstruction.
[2021-08-09 12:48] LABS: COVID-19 PCR Negative (Negative)
[2021-08-09] MEDS: Clopidogrel 300 MG TAB PO (13:38)
[2021-08-09] MEDS: Normal Saline 1,000 ML 1000 ML IV (13:39)
[2021-08-09 14:14] LABS: Lab Add On Test DONE
[2021-08-09 14:32] LABS: Creatine Kinase 97 U/L (39-308)
[2021-08-09] MEDS: Lactated Ringers 1,000 ML 125 ML IV ×2 (15:33→22:47)
--- NOTE | 2021-08-09 18:31 | W.PM.HP.N ---
Date of service: 08/09/21 Time of Service: 18:31 Assessment and Plan Assessment and plan (1) Embolic stroke involving left carotid artery: Status: Acute Assessment and plan: Likely Atheroembolic CVAs stemming from the L-sided carotid occlusion. Started on aspirin, plavix, statin. Anticipating vascular intervention in the near future - unclear if this will happen as a transfer or outpatient follow up. Will contact [facility] in am tomorrow. At this time, will monitor neurochecks. PT/OT consults. Echo if still here on Thursday. (2) Bilateral carotid artery occlusion: Status: Acute Assessment and plan: As above (3) Episode of unresponsiveness: Status: Acute Assessment and plan: Will check orthostatic Vital signs. Hydrate intravenously. Suspect this was drug-induced, possibly even arrhythmic in nature. (4) Opioid abuse: Status: Acute Assessment and plan: Continue home suboxone. (5) DVT prophylaxis: Status: Acute Assessment and plan: SC heparin (6) Discharge planning issues: Status: Acute Assessment and plan: Full code Anticipate possible transfer to [facility] for a vascular intervention. 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 He had lowered himself to the ground, did not hit his head, and was found unrensponsive by his friend after using heroine (snorting) this morning circa 4 am. He was unable to provide a clear account of what happened in the ED, but thinks his left arm was numb and weak followed by similar sx in the right arm. In the ED, he continued to report RUE numbness and weakness until about [address] of the head showed an old right parietal stroke. MRI of the brain showed acute/subacute strokes in L occipital, L caudate/parietal lobes. CTA of the head showed bilateral carotid artery stenosis. Case was discussed by ER with [facility] neurology, who felt the patient would benefit from being started on dual antiplatelet therapy and an urgent (but not emergent) vascular intervention. No beds were available at [facility]. Dr Pérez was going to get back to [facility] with recommendations for follow up, but to my understanding this has not yet occurred. Hospitalist admission was requested. The patient is completely back to normal at this time. 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) Medical History (Updated 08/09/21 @ 18:44 by Kelsey Corral MD) Narcotic abuse in remission Squamous cell carcinoma Surgical History (Updated 06/14/18 @ 06:40 by Teressa New DO) S/P skin cancer resection Neck Social History Smoking/Tobacco Use Status: Current every day Smoking risk assessment performed?: Yes Alcohol Intake: current Alcohol Intake frequency: a few times a week Alcohol type: beer Drug use: Daily Substance use type: marijuana and heroin Current gender identity: male Do you feel safe at home: Yes Do you feel safe in your relationship?: Yes Meds Allergies and Home Medications Allergies Allergy/AdvReac Type Severity Reaction Status Date / Time silver sulfadiazine Allergy Skin Rash Unverified 08/09/21 06:24 Home Medications Medication Instructions Recorded Confirmed Type Unknown [No Known Home Meds] 08/09/21 08/09/21 History Exam Narrative Exam Narrative: General: Pleasant Middle-aged male who is resting comfortably in bed Neurological: A&Ox3, CN II-XII intact, sensory intact, 5/5 strength throughout Psychiatric: Appropriate speech pattern/content Skin: Visible skin intact HEENT: Atraumatic, normocephalic, EOMI, MMM, clear oropharynx, no submandibular or cervical lymphadenopathy, no goiter or JVD Cardiovascular: RRR, no m/r/g Lungs: CTAB Gastrointestinal: soft, nontender, nondistended Genitourinary: deferred Extremities: 1+ pedal pulses B, no e/c/c. Results Imaging Additional studies: CT head: No acute intracranial process. CTA head/neck: 1. No large vessel occlusion or significant stenosis on the CT angiography of the head.? 2. No acute intracranial process.? 3. Almost 50 percent occlusion of the distal left common carotid artery just proximal to the bifurcation. 4. Occlusion at the origin of the left external carotid artery.? Near complete occlusion at the origin of right external carotid artery. 5. Near complete occlusion of the right internal carotid artery at its origin. 6. Less than 50 percent occlusion at the origin of the left subclavian artery. MRI brain w/o contrast: 1. Foci of restricted diffusion in the left occipital lobe, left caudate lobe in the left parietal lobe consistent with acute/subacute infarct. 2. 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 3. Findings of chronic sinus disease. 4. Results of this exam have been verbally communicated with provider. CXR: No acute pulmonary findings. EKG: HR 80, NSR, no acute ischemia Labs Result diagrams: 08/09/21 06:45 08/09/21 06:45 Labs: Laboratory Results - last 24 hr 08/09/21 08/09/21 08/09/21 06:45 06:45 07:42 WBC 9.84 RBC 4.84 Hgb 15.8 Hct 48.0 MCV 99 H MCH 32.6 MCHC 32.9 RDW 11.8 Plt Count 388 MPV 8.6 Immature Gran % 0.4 Neutrophils % 75.6 Lymphocytes % 16.4 Monocytes % 5.6 Eosinophils % 1.6 Basophils % 0.4 Nucleated RBC % 0.0 Absolute Neutrophils 7.44 H Absolute Lymphocytes 1.61 Absolute Monocytes 0.55 Absolute Eosinophils 0.16 Absolute Basophils 0.04 Sodium 139 Potassium 4.1 Chloride 104 Carbon Dioxide 25.1 Anion Gap 9.9 BUN 12 Creatinine 1.3 Estimated GFR/1.73 m2 57.10 Glucose 126 H Calcium 9.5 Magnesium 2.2 Total Bilirubin 0.7 AST 69 H ALT 112 H Alkaline Phosphatase 95 Creatine Kinase Troponin I < 50 Total Protein 8.6 H Albumin 4.0 Urine Opiates Screen Negative Urine Methadone Screen Negative Ur Barbiturates Screen Negative Ur Tricyclics Screen Negative Ur Amphetamines Screen Negative U Benzodiazepines Scrn Negative Urine Cocaine Screen Negative Ur THC Screen Positive A Ethyl Alcohol < 3.0 COVID-19 Source SARS-CoV-2 (PCR) Add-On Test Request 08/09/21 08/09/21 08/09/21 10:08 10:08 11:30 WBC RBC Hgb Hct MCV MCH MCHC RDW Plt Count MPV Immature Gran % Neutrophils % Lymphocytes % Monocytes % Eosinophils % Basophils % Nucleated RBC % Absolute Neutrophils Absolute Lymphocytes Absolute Monocytes Absolute Eosinophils Absolute Basophils Sodium Potassium Chloride Carbon Dioxide Anion Gap BUN Creatinine Estimated GFR/1.73 m2 Glucose Calcium Magnesium Total Bilirubin AST ALT Alkaline Phosphatase Creatine Kinase 97 Troponin I < 50 Total Protein Albumin Urine Opiates Screen Urine Methadone Screen Ur Barbiturates Screen Ur Tricyclics Screen Ur Amphetamines Screen U Benzodiazepines Scrn Urine Cocaine Screen Ur THC Screen Ethyl Alcohol COVID-19 Source Nasal/Nares SARS-CoV-2 (PCR) Negative Add-On Test Request 08/09/21 Unknown WBC RBC Hgb Hct MCV MCH MCHC RDW Plt Count MPV Immature Gran % Neutrophils % Lymphocytes % Monocytes % Eosinophils % Basophils % Nucleated RBC % Absolute Neutrophils Absolute Lymphocytes Absolute Monocytes Absolute Eosinophils Absolute Basophils Sodium Potassium Chloride Carbon Dioxide Anion Gap BUN Creatinine Estimated GFR/1.73 m2 Glucose Calcium Magnesium Total Bilirubin AST ALT Alkaline Phosphatase Creatine Kinase Troponin I Total Protein Albumin Urine Opiates Screen Urine Methadone Screen Ur Barbiturates Screen Ur Tricyclics Screen Ur Amphetamines Screen U Benzodiazepines Scrn Urine Cocaine Screen Ur THC Screen Ethyl Alcohol COVID-19 Source SARS-CoV-2 (PCR) Add-On Test Request DONE Last Vital Signs Temp 37.6 C H 08/09/21 16:00 Pulse 65 08/09/21 16:00 Resp 20 08/09/21 16:00 BP 126/90 08/09/21 16:00 Pulse Ox 94 08/09/21 16:00 PAWSS Have you Been Recently Intoxicated or Drunk Within the Last 30 days?: No Have you Ever Experienced Previous Episodes of Alcohol Withdrawal?: No Have you ever Experienced Withdrawal Seizures?: No Have you ever Experienced Delirium Tremens(DT)s?: No Have you ever undergone Alcohol Rehabilitation Treatment (i.e, inpt ot outpatient treatment programs)?: No Have you ever Experienced Blackouts?: No Have you ever Combined Alcohol with other Downers within the last 90 days?: No Have you ever Combined Alcohol with any other Substance of Abuse during the last 90 days?: No Positive Blood Alcohol level on Presentation? [PCS.BAL]: No Evidence of Increased Autonomic Activity (i.e. HR>120, tremor, sweating, agitation, nausea)?: Yes Result: 1
[2021-08-09] MEDS: Atorvastatin 40 MG TAB PO (20:47)
[2021-08-09] MEDS: Heparin 5,000 UNITS/ML VIAL 5000 UNITS SC (22:47)
[2021-08-10] VITALS (11 sets, daily range): BP systolic 90–178; BP diastolic 59–103; PULSE 62–91; RESP 15–20; TEMP 36.9–37.9; O2SAT 95–97
[2021-08-10] MEDS: Heparin 5,000 UNITS/ML VIAL 5000 UNITS SC ×3 (05:46→22:55)
[2021-08-10] MEDS: Lactated Ringers 1,000 ML 125 ML IV ×2 (05:57→14:20)
[2021-08-10 07:13] LABS: Abs Immature Grans 0.01 10^3/uL (0.0-0.06); Absolute Basophil Count 0.03 10^3/uL (0.0-0.2); Absolute Eosinophil Count 0.12 10^3/uL (0.0-0.7); Absolute Lymphocyte Count 1.94 10^3/uL (1.2-3.4); Absolute Monocyte Count 0.49 10^3/uL (0.1-0.8); Basophils % 0.5; Eosinophils % 2.1; HCT 40.5 % (40.0-50.0); HGB 14.2 g/dL (13.5-17.5); Immature Grans % 0.2; Lymphocytes % 34.1; MCH 33.8 pg (27.0-33.0); MCHC 35.1 % (32.0-36.0); MCV 96 fL (80-95); MPV 8.6 fL (8.0-11.0); Monocytes % 8.6; Neutrophils % 54.5; Platelet Count 305 10^3/uL (130-400); RDW 11.9 % (11.8-14.1); RDW-SD 42.5 fL; WBC 5.69 10^3/uL (4.4-10.8)
[2021-08-10 07:30] LABS: Anion Gap 8.1 mmol/L (3-11); BUN 10 mg/dL (7-18); CO2 24.9 mmol/L (21.0-32.0); Chloride 105 mmol/L (98-107); Glucose 116 mg/dL (74-106); Magnesium 1.9 mg/dL (1.8-2.4); Sodium 138 mmol/L (136-145)
--- NOTE | 2021-08-10 07:36 | PT.INIE ---
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 Corral PT Orders: PT CONSULT: limited ability to ambulate Precautions: standard Patient Profile/Admitting Diagnosis: Patient admitted for medical management following embolic stroke involving left carotid artery, with bilat carotid artery occlusion. 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 Equipment Owned/DME: none Subjective: Yash states that he is feeling fine. Denies dizziness, weakness or imbalance. States that he's been up and about in his room on his own this morning. He states that he is very anxious to leave the hospital. Objective: General Observation: Sitting at EOB at initiation of session with IV in LUE. Mental Status: A&Ox3. Impulsive. Pain: denies Vital Signs: monitored on telemetry ROM: Right Upper Extremity: WNL Left Upper Extremity: WNL Right Lower Extremity: WNL Left Lower Extremity: WNL Strength: Right Upper Extremity: WNL Left Upper Extremity: WNL Right Lower Extremity: hip flexion 5/5. Quads 5/5. Ankle DF 5/5 Left Lower Extremity: hip flexion 5/5. Quads 5/5. Ankle DF 5/5 Bed Mobility/Transfers: supine-sit: independent sit-supine: independent sit-stand: independent stand-sit: independent Gait: ambulates 150' without AD, supervision only. Ambulates independently in room, and able to independently manage IV pole. No ataxia or antalgia, although requires cues to slow pace. Stairs: Able to manage therapeutic stairs 6x4, 4x6 independently, without use of rails. Balance: Static Sitting: normal Dynamic Sitting: normal Static Standing: normal Dynamic Standing: normal Special Tests: Mobility Limitations [facility] Basic Mobility Inpatient Short Form: Raw Score: 24 CMS Score: 0% impairment Informed Consent/Education: Patient instructed in purpose of PT consult and plan of care. Assessment: Patient is a 56 year old male referred to physical therapy services with the diagnosis of limited ability to ambulate following embolic stroke. Patient appears to have resolution of motor symptoms, with excellent strength and mobility on assessment today. He is demonstrating sufficient safety and mobility to allow for transition back to the community once medically stable, as supported by AM-PAC score of 24. He does not require any further PT in acute care setting and will d/c from PT services. Patient is assessed as low 67560 complexity based on the following: History: Patient is a 56 year old male referred for evaluation of mobility following embolic stroke. He demonstrates independent bed mobility and transfers, as well as safety with household distance ambulation and stair management. He is safe for return to the community once medically stable. Examination: no functional limitations Presentation: evolving due to acute medical issues Decision Making: low complexity Plan of Care/Treatment Plan: No further PT required in acute care setting. DISCHARGE RECOMMENDATIONS: Home with no services TREATMENT CODE/TIME: 7:30-7:50 ([id number]) Sandra Ballesteros, PT, DPT [facility]
[2021-08-10] MEDS: Clopidogrel 75 MG TAB PO (07:52)
[2021-08-10] MEDS: Famotidine 20 MG TAB PO (07:52)
[2021-08-10] MEDS: Aspirin E.C. 81 MG TABEC PO (07:52)
[2021-08-10 08:24] LABS: Calculated LDL 69 mg/dL (<100); Cholesterol 131 mg/dL (<200); HDL Cholesterol 52 mg/dL (40-60); Triglyceride 53 mg/dL (<150)
--- NOTE | 2021-08-10 10:58 | INITIAL_ITS ---
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 Embolic stroke involving left carotid artery (Acute), Acute cerebrovascular accident (CVA) (Acute), Bilateral carotid artery occlusion (Acute), and. 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 Medical History: Narcotic abuse in remission, and Squamous cell carcinoma. Lauren gical History: S/P skin cancer resection - Neck. PREVIOUS FUNCTIONAL STATUS/SOCIAL/FAMILY SUPPORTS:: Yash lives in [place] [place] with his electric clock mechanic, Tete, her sister, [id number], and nephew; all of whom are supportive of him. 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 He enjoys fishing, hunting, watching car racing, and playing poker. Yash is independent with his ADLs at baseline. CURRENT FUNCTIONAL STATUS:: Yash is sitting up in bed when CM comes to meet with him. His partner, Tete, is present in the room. Yash is pleasant and easily engages in conversation. He shares that he does not like being in the hospital and is adamant that he is going home today. ADVANCE DIRECTIVES:: None on file; Yash accepts an Advance Directive from to complete at his leisure. Has patient been provided with info about the portal/API?: Yes Did the patient sign up for the portal?: No CODE STATUS:: Full Code INSURANCE COVERAGE / FINANCIAL ISSUES:: Self-pay. Patient states insurance through work will be active in a few days. Yash is provided with a Patient Assistance Application. CURRENT HOME/COMMUNITY SERVICES/EQUIPMENT:: None. CM inquires if he would be interested in speaking with a Industrial/Organizational Psychologist and he declines. Yash is not currently connected to a MAT provider but says he's been in touch with [facility] and is going to their office on Thursday to sign up for services. PRIMARY CARE PHYSICIAN:: JEREMY Lawrence ([facility]). POTENTIAL DISCHARGE NEEDS:: Follow up appointments with PCP and [facility] for a vascular intervention. PATIENT/FAMILY EDUCATION NEEDS:: Review of discharge instructions and discuss Ask Me Three. ANTICIPATED BARRIERS TO DISCHARGE:: No anticipated barriers at this time. TRANSPORTATION:: Via private vehicle with his partner, Tete. PLAN:: Yash will likely discharge home with no new services when medically cleared by provider. He will follow up with his PCP, [facility] and plan of care as instructed. He will be transported home via private vehicle by family when ready. CM will continue to follow.
[2021-08-10] MEDS: Buprenorphine/Naloxone 4 mg/1 mg FILM 1 EACH SL (14:35)
--- NOTE | 2021-08-10 15:57 | W.PM.PROGNOT ---
Date of Service Date of service: 08/10/21 Time of Service: 15:57 Assessment and Plan Assessment and plan (1) Embolic stroke involving left carotid artery: Status: Acute Assessment and plan: Likely Atheroembolic CVAs stemming from the L-sided carotid occlusion. Continue aspirin, plavix, statin. Needs a carotid endarterectomy on the R - read discussion re my attempts to arrange transfer in the subjective portion of the note. Will attempt transfer to [facility] again tomorrow. Continue to monitor neurochecks. PT/OT consulted - not needing further inpatient PT. Echo if still here on Thursday. (2) Bilateral carotid artery occlusion: Status: Acute Assessment and plan: As above (3) Episode of unresponsiveness: Status: Acute Assessment and plan: Not orthostatic. D/c IVF. Suspect this was drug-induced, possibly even arrhythmic in nature. (4) Opioid abuse: Status: Acute Assessment and plan: Read discussion re suboxone - patient was initiated on actually prescribed suboxone here. He states he will follow up with the [facility] in [place]. (5) DVT prophylaxis: Status: Acute Assessment and plan: SC heparin (6) Discharge planning issues: Status: Acute Assessment and plan: Full code Anticipate transfer to a tertiary care facility for a vascular intervention. Should the patient leave tonight, this would be AMA. He verbalized understanding of his risks of recurrent stroke and . Subjective Subjective Interval history since last seen: Mr Dalton states that he is on edge because of withdrawal symptoms from suboxone. He uses street suboxone (a half of the 8-2 mg film), but the last time he used was two days ago. He states that he has a plan to get on the suboxone program through a clinic in [place]. He does not have any numbness/tingling/headache/chest pain/shortness of breath/nausea. He understands that we are looking for a bed in a tertiary care facility so that he can have an intervention done on his carotid. We discussed how, if he were to leave today, this would be against medical advice. I discussed the case with Dr Pérez of [facility]: she feels that it would be an urgent, but not an emergent transfer, but it would be better to do the endarterectomy as an inpatient. There are no beds at [facility]. I also called [facility] - beds in their network at this time. I spoke with [facility] transfer center: Dr Henry is the vascular surgeon cotton presser who had communicated with the transfer center nurse that the patient could be accepted there, but that the earliest his endarterectomy would happen would be on Thursday with a transfer on Thursday. We agreed that, if I were unable to find another bed in a tertiary care facility by then, I would call [facility] Back on Thursday and request the transfer. They do have bed capacity. Exam Narrative Exam Narrative: General: Pleasant Middle-aged male who appears anxious, A&Ox3, NAD, no focal neurological deficits HEENT: EOMI, MMM Cardiovascular: RRR, no m/r/g Lungs: CTAB Gastrointestinal: soft, nontender, nondistended Extremities: 1+ pedal pulses B, no e/c/c. Objective Last Vital Signs Temp 37.8 C H 08/10/21 11:47 Pulse 66 08/10/21 11:47 Resp 20 08/10/21 11:47 BP 161/95 H 08/10/21 11:47 Pulse Ox 97 08/10/21 11:47 Laboratory Results - last 24 hr 08/10/21 08/10/21 06:55 06:55 WBC 5.69 RBC 4.20 L Hgb 14.2 Hct 40.5 MCV 96 H MCH 33.8 H MCHC 35.1 D RDW 11.9 Plt Count 305 MPV 8.6 Immature Gran % 0.2 Neutrophils % 54.5 Lymphocytes % 34.1 Monocytes % 8.6 Eosinophils % 2.1 Basophils % 0.5 Nucleated RBC % 0.0 Absolute Neutrophils 3.10 Absolute Lymphocytes 1.94 Absolute Monocytes 0.49 Absolute Eosinophils 0.12 Absolute Basophils 0.03 Sodium 138 Potassium 4.0 Chloride 105 Carbon Dioxide 24.9 Anion Gap 8.1 BUN 10 Creatinine 1.0 Estimated GFR/1.73 m2 >= 60.00 Glucose 116 H Calcium 9.0 Magnesium 1.9 Triglycerides 53 Total Cholesterol 131 LDL Cholesterol, Calc 69 HDL Cholesterol 52 PAWSS Have you Been Recently Intoxicated or Drunk Within the Last 30 days?: No Have you Ever Experienced Previous Episodes of Alcohol Withdrawal?: No Have you ever Experienced Withdrawal Seizures?: No Have you ever Experienced Delirium Tremens(DT)s?: No Have you ever undergone Alcohol Rehabilitation Treatment (i.e, inpt ot outpatient treatment programs)?: No Have you ever Experienced Blackouts?: No Have you ever Combined Alcohol with other Downers within the last 90 days?: No Have you ever Combined Alcohol with any other Substance of Abuse during the last 90 days?: No Positive Blood Alcohol level on Presentation? [PCS.BAL]: No Evidence of Increased Autonomic Activity (i.e. HR>120, tremor, sweating, agitation, nausea)?: Yes Result: 1
[2021-08-10] MEDS: Atorvastatin 40 MG TAB PO (19:34)
[2021-08-11] VITALS (11 sets, daily range): BP systolic 127–167; BP diastolic 72–109; PULSE 59–94; RESP 14–18; TEMP 36.6–36.9; O2SAT 94–98
[2021-08-11] MEDS: Heparin 5,000 UNITS/ML VIAL 5000 UNITS SC ×3 (06:25→23:03)
[2021-08-11] MEDS: Buprenorphine/Naloxone 4 mg/1 mg FILM 1 EACH SL (07:54)
[2021-08-11] MEDS: Aspirin E.C. 81 MG TABEC PO (07:54)
[2021-08-11] MEDS: Clopidogrel 75 MG TAB PO (07:54)
[2021-08-11] MEDS: Famotidine 20 MG TAB PO (07:54)
--- NOTE | 2021-08-11 10:35 | NUR.NOTE ---
Nursing Note: At approximately 1030 on 08/11/21, this RN entered the pt.'s room to check on the pt. Pt. loudly stated, I'd really like to go outside and catch a couple breaths of fresh air. RN informed the pt. that per hospital policy, acute inpatients aren't allowed to leave the unit to go outside. Pt. appeared angry and frustrated and stated, That's so stupid. RN informed the pt. that they were sorry they felt that way, reinforced that that was the hospital's policy, and then asked if there was anything else they could do/get for the pt. Pt. just laid in bed and shook their head no. RN informed the pt. that they would be back later to check on them again and to ring their call padgett if they needed anything. RN then left the room. This is the second time this morning that the pt. has made this request and has been informed of the hospital's policy. RN will reassess as necessary.
[2021-08-11] MEDS: Normal Saline Flush 10 ML SYR IVP ×2 (12:25→20:03)
[2021-08-11] MEDS: guaiFENesin 600 MG TABCR PO ×2 (14:15→20:02)
[2021-08-11 14:28] LABS: Source Nasal/Nares
[2021-08-11 15:19] LABS: COVID-19 PCR Negative (Negative)
--- NOTE | 2021-08-11 15:36 | W.PM.PROGNOT ---
Date of Service Date of service: 08/11/21 Time of Service: 15:36 Assessment and Plan Assessment and plan (1) Embolic stroke involving left carotid artery: Status: Acute Assessment and plan: Likely Atheroembolic CVAs stemming from the L-sided carotid occlusion. Continue aspirin, plavix, statin. Needs a carotid endarterectomy on the R. Will call [facility] back tomorrow at noon. If no surgical availability before Thursday, will call [facility] back, where he would be able to have the procedure on Thursday. Continue to monitor neurochecks. PT/OT consulted - not needing further inpatient PT. Echo ordered for tomorrow. (2) Bilateral carotid artery occlusion: Status: Acute Assessment and plan: As above (3) Episode of unresponsiveness: Status: Acute Assessment and plan: Not orthostatic. Suspect this was drug-induced, possibly even arrhythmic in nature. (4) Opioid abuse: Status: Acute Assessment and plan: Patient was initiated on actually prescribed suboxone here. He states he will follow up with the [facility] in [place]. (5) DVT prophylaxis: Status: Acute Assessment and plan: SC heparin (6) Discharge planning issues: Status: Acute Assessment and plan: Full code Anticipate transfer to a tertiary care facility for a vascular intervention. Should the patient leave tonight, this would be AMA. We had a conversation about this yesterday and I did convey to him again today that he should try to wait for us to transfer him for the procedure. Subjective Subjective Interval history since last seen: Mr Dalton states that he has not had any more numbness or weakness in his arms and continues to feel back to normal. He is frustrated that we still don't have a time/date for his carotid endarterectomy. I connected with [facility] nuerology again today and spoke with Dr Pérez, who is trying to arrange a time/date for his endarterectomy with vascular surgery, who should know tomorrow after surgical rounds. Because his case is urgent, a non-urgent case would have to be rescheduled. I was told to call back tomorrow at noon for more info. Exam Narrative Exam Narrative: General: Middle-aged male who appears mildly anxious, A&Ox3, NAD, no focal neurological deficits HEENT: EOMI, MMM Cardiovascular: RRR, no m/r/g Lungs: CTAB Gastrointestinal: soft, nontender, nondistended Extremities: 1+ pedal pulses B, no e/c/c. Objective Last Vital Signs Temp 36.7 C 08/11/21 11:29 Pulse 87 08/11/21 11:29 Resp 18 08/11/21 11:29 BP 156/80 H 08/11/21 11:29 Pulse Ox 98 08/11/21 11:29 Laboratory Results - last 24 hr 08/11/21 14:20 COVID-19 Source Nasal/Nares SARS-CoV-2 (PCR) Negative PAWSS Have you Been Recently Intoxicated or Drunk Within the Last 30 days?: No Have you Ever Experienced Previous Episodes of Alcohol Withdrawal?: No Have you ever Experienced Withdrawal Seizures?: No Have you ever Experienced Delirium Tremens(DT)s?: No Have you ever undergone Alcohol Rehabilitation Treatment (i.e, inpt ot outpatient treatment programs)?: No Have you ever Experienced Blackouts?: No Have you ever Combined Alcohol with other Downers within the last 90 days?: No Have you ever Combined Alcohol with any other Substance of Abuse during the last 90 days?: No Positive Blood Alcohol level on Presentation? [PCS.BAL]: No Evidence of Increased Autonomic Activity (i.e. HR>120, tremor, sweating, agitation, nausea)?: Yes Result: 1
[2021-08-11] MEDS: Atorvastatin 40 MG TAB PO (20:02)
[2021-08-12] VITALS (11 sets, daily range): BP systolic 114–148; BP diastolic 76–98; PULSE 61–88; RESP 16–18; TEMP 36.3–37.1; O2SAT 95–98
[2021-08-12] MEDS: Heparin 5,000 UNITS/ML VIAL 5000 UNITS SC ×3 (05:46→21:31)
[2021-08-12 07:01] LABS: HGB 14.7 g/dL (13.5-17.5); MCH 33.5 pg (27.0-33.0); MCV 96 fL (80-95); MPV 8.9 fL (8.0-11.0); Platelet Count 298 10^3/uL (130-400); RBC 4.39 10^6/uL (4.36-5.78); RDW 11.9 % (11.8-14.1); RDW-SD 41.7 fL; WBC 5.86 10^3/uL (4.4-10.8)
--- NOTE | 2021-08-12 08:00 | DI.US_ITS ---
APPROVED REPORT EXAM: Comprehensive 2D, Doppler, and color-flow Echocardiogram Patient Location: In-Patient Room/Bed: [address] Hand: Marina Shelley RDCS (AE) Indications: Embolic CVA Other Information Study Quality: Adequate Conclusion Normal left ventricular wall thickness and chamber size. Estimated ejection fraction is 59%. Wall m otion is normal Normal right ventricular size and systolic function Both atria are normal in size There is no structural or hemodynamically significant valvular disease Estimated right ventricular systolic pressure is 40 mmHg Wall motion Left Ventricle The left ventricle is normal size. The left ventricular systolic function is normal. The left ventric ular ejection fraction is within the normal range. There is normal left ventricular wall thickness. T here is normal LV segmental wall motion. There is no ventricular septal defect visualized. LVEF is 59 %. Right Ventricle The right ventricle is normal size. The right ventricular systolic function is normal. The RVSP is 40 .3 mmHg. Atria The left atrium size is normal. The right atrium size is normal. The interatrial septum is intact wit h no evidence for an atrial septal defect. Aortic Valve The aortic valve is normal in structure. Aortic valve is trileaflet. There is no aortic valvular sten osis. No aortic regurgitation is present. Mitral Valve The mitral valve is normal in structure. No evidence of mitral valve stenosis. Trace mitral regurgita tion. Tricuspid Valve The tricuspid valve is normal in structure. There is no tricuspid valve stenosis. Trace tricuspid reg urgitation. Pulmonic Valve The pulmonary valve is normal in structure. There is no pulmonic valvular stenosis. Trace pulmonic re gurgitation. Great Vessels The aortic root is normal in size. The ascending aorta is normal in size. Aortic arch is normal in ca liber. IVC is normal in size and collapses >50% with inspiration. Pericardium There is no pericardial effusion. 2D Dimensions IVSD d PLAX 0.98 cm M: 0.6-1.2 LV Vol A2C d MOD 89.2 mL LVPW d PLAX 0.99 cm M: 0.6 - 1.2 LV Vol A4C d MOD 84.0 mL LVID d PLAX 4.69 cm M: 4.2 - 5.8 LA vol/ BSA A2C s A-L 31.1 mL/m2 LVDs 3.10 cm M: 2.5 - 4.0 LA vol/ BSA A4C s A-L 32.7 mL/m2 Ao Root d 3.23 cm M: 3.1 - 3.7 LA Vol/ BSA Biplane s A-L 34.1 mL/m2 RA Area A4C 12.27 cm2 LA Area A4C s MOD 19.43 cm2 RA Vol/ BSA A4C s A-L 14.7 mL/m2 LA Area A2C s MOD 17.73 cm2 Ao Asc Diam d 3.49 cm M: 2.6 - 3.4 LV EF A4C MOD 58.5 % LV EF Teichholz 61.9 % LV EF A2C MOD 59.7 % LVEF (Rapp's) 58.25 % M: 52 - 72 LV EF Biplane MOD 58.3 % LV Volume 69.45 mL M: 62 - 150 SV 51.80 mL LV Volume Index 39.01 mL/m2 M: 34 - 74 SV Index 29.12 mL/m2 LV Vol Biplane MOD 88.9 mL FS 33.25 % M-Mode TAPSE 2.91 cm (M/F) >1.7 LV Diastology MV E' medial 0.101 (>0.07 m/s) E/A Ratio 1.0 LV E/e MED 7.95 (<14) MV E Vmax 0.81 (0.4-1.3 m/s) MV E' lateral 0.112 (>0.1 m/s) MV A Vmax 0.80 (0.4-1.3 m/s) LV E/e LAT 7.15 (<14) MV E/A Ratio 0.98 MV E/E' medial 7.97 MV E/E' lateral 7.16 Aortic Valve LVOT Area 3.27 cm2 AoV Area Vmax 3.01 cm2 LVOT Vmax 1.35 m/s AoV Area/ BSA (Vmax) 1.69 cm2/m2 LVOT Mean Wally. 0.84 m/s SYD Mean Wally. 2.80 cm2 LVOT Peak Grad 7.3 mmHg SYD Mean Wally. Index 1.58 cm2/m2 LVOT Mean Grad 3.4 mmHg LVOT VTI 0.254 m LVOT Diam s 2.00 cm AoV Vmax 1.47 m/s Velocity Ratio 0.91 AoV Mean Wally. 0.98 m/s AoV Peak Grad 8.7 mmHg LVOT SV 83.17 mL AoV Mean Grad 4.6 mmHg AoV VTI 0.262 m AoV Area VTI 3.17 cm2 AoV Area/ BSA (VTI) 1.78 cm/m2 Mitral Valve MV DT 215 (160-240 msec) MV PHT 62 msec MV Area PHT 3.52 cm2 MV VTI 0.267 m MV Area VTI 3.11 (4.0-6.0 cm2) Pulmonary Valve PV Vmax 1.39 (0.5-1.5 m/s) RVOT Peak Gr. 3.81 mmHg PV Peak Grad 7.7 mmHg RVOT Mean Gr. 1.95 mmHg PV Mean Grad 4.2 mmHg RVOT VTI 0.179 m PV VTI 0.254 m RVOT Vmax 0.98 m/s Tricuspid Valve TR Peak Grad 37.3 mmHg TR Vmax 3.06 m/s RA Pressure 3.00 mmHg RVSP (TR) 40.3 mmHg
[2021-08-12] MEDS: Buprenorphine/Naloxone 4 mg/1 mg FILM 1 EACH SL (08:01)
[2021-08-12] MEDS: Famotidine 20 MG TAB PO (08:01)
[2021-08-12] MEDS: Clopidogrel 75 MG TAB PO (08:01)
[2021-08-12] MEDS: Aspirin E.C. 81 MG TABEC PO (08:01)
[2021-08-12] MEDS: guaiFENesin 600 MG TABCR PO ×2 (08:01→21:31)
[2021-08-12] MEDS: Normal Saline Flush 10 ML SYR IVP (08:02)
--- NOTE | 2021-08-12 08:13 | OT.INDS ---
Occupational Therapy Notes 08/12/21 OT consult received and pts chart was reviewed. OT attempted to consult with pt who reports that he is not interested in consult and is independent in his ADL/IADL routines. Pt is (I) moving throughout his room, eating (I) at time of OT arrival and (I) using the bathroom for bathing and grooming routines. Based on pts refusal, OT will plan to discharge OT consult at this time. Sarah Patton, OTR/L
--- NOTE | 2021-08-12 16:16 | PDOC.CMPRO ---
- If Service Date Differs Date of service: 08/12/21 Time of Service: 16:16 Care Management Progress Note Yash continues to await transfer.
--- NOTE | 2021-08-12 17:58 | DSE_ITS ---
Date of service: 08/12/21 Time of Service: 17:58 DS: Diagnosis Discharge Diagnosis (1) Embolic stroke involving left carotid artery: Status: Acute (2) Bilateral carotid artery occlusion: Status: Acute (3) Episode of unresponsiveness: Status: Acute (4) Hypertension: Status: Chronic (5) Opioid abuse: Status: Acute (6) Sinusitis: Status: Acute Discharge Plan Disposition Patient Disposition: [facility] Condition: Stable Discharge Details Reason For Visit: Atheroembolic CVAs to L Occipital, L Caudate/Parie Admit Date/Time: 08/09/21 13:41 Admit Provider: Kelsey Corral Attending Provider: Kelsey Corral Primary Care Provider: Br[facility] Hospital Course Hospital Course: Mr Dalton is a 56 year old male with PMHx of 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 The patient had presented after an unresponsive episode, having woken up at 4 am without deficits, used heroine and then taking a shower, where the episode occurred. The patient stated he did not fall but lowered himself to the ground. When he came to it, he first experienced LUE numbness and weakness that then resolved and traveled to the right arm. His symptoms had resolved by 1 pm on the day of presentation. CT of the head was negative. MRI of the brain showed foci of restricted diffusion in L occipital, Left caudate, and left parietal lobes c/w acute vs subacute infarcts. He was also found to have chronic sinusitis. CTA of the head and neck showed bilateral carotid stenosis ( Almost 50 percent occlusion of the distal left common carotid artery just proximal to the bifurcation. Occlusion at the origin of the left external carotid artery.? Near complete occlusion at the origin of right external carotid artery. Near complete occlusion of the right internal carotid artery at its origin. Less than 50 percent occlusion at the origin of the left subclavian artery.) The patient's case was discussed with [facility] neurology, who recommended dual antiplatelet therapy and a statin and a vascular intervention for the R carotid stenosis on an urgent basis, preferably as inpatient, rather than outpatient. There is a concern that, w/ h/o cancer treatment in the neck area, this could be contributing to his current carotid stenosis and could make his procedure more complicated. There were no beds available at [facility] or within the [facility] network. [facility] was contacted and agreed to take the patient if more local facilities could not accommodate the patient before 08/14/21. This appears to be the case. The patient was accepted in transfer to [facility] after my conversation with Dr Garibay of vascular surgery to the medicine team. Accepting MD is Dr Bedoya. Bed is expected to be available early tomorrow morning. The patients neurologic symptoms seen on presentation to the ED have completely resolved and not recurred, and there have not been any new neurologic symptoms. He has been afebrile (T max 37.9 C on 08/10/21). He had negative blood cultures on admission. His echocardiogram (transthoracic) reveals LVEF of 59%, no valvular disease, and RVSP of 40 mmHg. The patient does not have clnical signs of endocarditis. He does have sinusitis by imaging and was started on mucinex and nasal spray. For his opioid dependence, he was initiated on suboxone at our facility. He has plans to follow up with an opioid treatment clinic once he returns home and does not require a suboxone prescription at the time of discharge from [facility]. He is medically stable for transfer and agreeable to transfer. Care for patient as well as completion of his discharge summary took 60 minutes on the day of discharge. Please, see MAR for list of his inpatient medications. Home Meds and New Rx's Prescriptions: No Action No Known Home Meds Discharge Instructions Referrals: Brinda Brooks [Primary Care Provider] - Leti Ferguson MD [ [facility] STAFF PHYSICIAN] - Activity:: Activity as Tolerated Equipment/Supplies:: No Equipment Needed Diet:: heart healthy DS: Summary Time Spent with Patient providing and/or coordinating discharge services: Greater than 30 minutes Status at Discharge Functional status at discharge: independent ambulation Overall status at discharge: patient is back to baseline Mental Status: mental status grossly normal Speech and Movement: speech and movement normal Mood: congruent mood Affect: normal affect Exam Narrative Exam Narrative: General: Middle-aged male who appears mildly anxious, A&Ox3, NAD, no focal neurological deficits HEENT: EOMI, MMM Cardiovascular: RRR, no m/r/g Lungs: CTAB Gastrointestinal: soft, nontender, nondistended Extremities: 1+ pedal pulses B, no e/c/c. Psych Mental Status: mental status grossly normal Speech and Movement: speech and movement normal Mood: congruent mood Affect: normal affect DS: Data Vitals/I&O Vitals and I&O: Vital Signs Temperature 36.5 C 08/12/21 14:57 Temperature Source Tympanic 08/12/21 14:57 Pulse 88 08/12/21 14:57 Pulse Rhythm Regular 08/12/21 07:04 Respiratory Rate 16 08/12/21 14:57 Respiratory Effort Non-Labored 08/12/21 07:04 Respiratory Depth Normal 08/12/21 07:04 Respiratory Pattern Normal 08/12/21 07:04 Blood Pressure 128/85 08/12/21 14:57 Blood Pressure Position Sitting 08/09/21 06:13 Pulse Oximetry 98 08/12/21 14:57 Oxygen Delivery Method Room Air 08/12/21 14:57 Oxygen Flow Rate 0 08/12/21 14:57 Pain Level 0 08/12/21 16:44 Comment 08/12/21 16:44 Intake & Output 08/11/21 08/12/21 08/12/21 23:59 11:59 23:59 Intake Total 930 / 1290 760 / 1000 240 / 1000 Balance 930 / 1290 760 / 1000 240 / 1000 Weight 75.2 kg Intake: IV Oral 930 / 1290 750 / 990 240 / 990 Other: Urine Color Yellow Urine Appearance Clear Clear Comment unmeasured urine output Per pt. report, void x1 in the toilet. Voiding Methods Toilet Toilet Data Completed and Pending Completed studies during hospitalization [Text1]: CT head w/o contrast 08/09/21: No acute intracranial process.? MRI brain 08/09/21: 1. Foci of restricted diffusion in the left occipital lobe, left caudate lobe in the left parietal lobe consistent with acute/subacute i nfarct. 2. 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 3. Findings of chronic sinus disease. CTA head/neck 08/09/21: 1. No large vessel occlusion or significant stenosis on the CT angiography of the head.? 2. No acute intracranial process.? 3. Almost 50 percent occlusion of the distal left common carotid artery just proximal to the bifurcation. 4. Occlusion at the origin of the left external carotid artery.? Near complete occlusion at the origin of right external carotid artery. 5. Near complete occlusion of the right internal carotid artery at its origin. 6. Less than 50 percent occlusion at the origin of the left subclavian artery. CXR 08/09/21: No acute pulmonary findings. Echo (TTE) 08/12/21: Normal left ventricular wall thickness and chamber size.? Estimated ejection fraction is 59%.? Wall motion is normal Normal right ventricular size and systolic function Both atria are normal in size There is no structural or hemodynamically significant valvular disease Estimated right ventricular systolic pressure is 40 mmHg Labs on day of discharge: Labs from last 24 hours 08/12/21 06:40 WBC 5.86 RBC 4.39 Hgb 14.7 Hct 42.0 MCV 96 H MCH 33.5 H MCHC 35.0 RDW 11.9 Plt Count 298 MPV 8.9 Preliminary micro results at discharge 08/09/21 13:00 Blood Culture - Preliminary Blood NO GROWTH 72 HOURS 08/09/21 12:40 Blood Culture - Preliminary Blood NO GROWTH 72 HOURS PFSH All Active Problems (Updated 08/12/21 @ 19:45 by Kelsey Corral MD) Hypertension (Chronic) Sinusitis (Acute) Discharge planning issues (Acute) DVT prophylaxis (Acute) Opioid abuse (Acute) Episode of unresponsiveness (Acute) Embolic stroke involving left carotid artery (Acute) Acute cerebrovascular accident (CVA) (Acute) Bilateral carotid artery occlusion (Acute) 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
[2021-08-12] MEDS: Atorvastatin 40 MG TAB PO (21:31)
[2021-08-13 03:39] VITALS: BP 112/69; PULSE 83; RESP 16; TEMP 36.6; O2SAT 97
[2021-08-13] MEDS: Heparin 5,000 UNITS/ML VIAL 5000 UNITS SC (05:42)
[2021-08-13 07:17] VITALS: BP 137/90; BP 141/94; BP 143/93; PULSE 68; PULSE 72; PULSE 85; RESP 14; TEMP 36.6
[2021-08-13] MEDS: Famotidine 20 MG TAB PO (07:36)
[2021-08-13] MEDS: Aspirin E.C. 81 MG TABEC PO (07:36)
[2021-08-13] MEDS: Clopidogrel 75 MG TAB PO (07:36)
[2021-08-13] MEDS: Buprenorphine/Naloxone 4 mg/1 mg FILM 1 EACH SL (07:36)
[2021-08-13] MEDS: guaiFENesin 600 MG TABCR PO (07:36)
[2021-08-13 08:00] VITALS: PULSE 71
[2021-08-13 11:02] VITALS: BP 134/89; PULSE 81; RESP 18; TEMP 36.2; O2SAT 97
--- NOTE | 2021-08-13 11:41 | NUR.NOTE ---
Nursing Note: At this time, this RN called [facility] to do a nurse to nurse report. Patient is going to [facility] to room 4038. Report given to Corazon Aguero. Charge nurse aware of this report. Patient in room waiting for transport.
[2021-08-13 12:48] VITALS: PULSE 95
== END 2021-08-13 12:51 | DRG 65 ==
LOC: ER 13:43 → MS 15:07
PROVIDERS: Emergency Medicine; Admitting Provider Internal Medicine; Emergency Provider Physician Assistant; PCP Nurse Practitioner Family; Visit Provider Internal Medicine
DX: I63.132 Cerebral infarction due to embolism of left carotid artery (principal); F11.20 Opioid dependence, uncomplicated; R41.89 Other symptoms and signs involving cognitive functions and awareness; I10 Essential (primary) hypertension; F32.A Depression, unspecified; F17.210 Nicotine dependence, cigarettes, uncomplicated; I65.21 Occlusion and stenosis of right carotid artery; R40.4 Transient alteration of awareness; J32.8 Other chronic sinusitis; Z86.73 Personal history of transient ischemic attack (TIA), and cerebral infarction without residual deficits
CPT/HCPCS: 36410; 36415; 70496; 70498; 80048; 80053; 80061; 80307; 82550; 85027; 87040; 87635; 93005; 96360; 97161; 99285; 70450; 70551; 71046; 80320; 83735; 84484; 85025; 93010; 93306; 99223; 99233; 99239; J1644; J3490

== ENCOUNTER 2021-08-26 16:02 | Outpatient (REF) | payer BC, SELFPAY ==
[2021-08-26 16:01] LABS: Calculated LDL 34 mg/dL (<100); Cholesterol 115 mg/dL (<200); HDL Cholesterol 69 mg/dL (40-60); TSH (W/Ref FT4) 1.42 uIU/mL (0.36-3.74); Triglyceride 62 mg/dL (<150)
== END 2021-08-26 16:03 | disposition home or self-care (01) ==
LOC: NCHCN 16:02
PROVIDERS: PCP Nurse Practitioner Family; Visit Provider Nurse Practitioner Family
DX: I65.29 Occlusion and stenosis of unspecified carotid artery (principal); I63.40 Cerebral infarction due to embolism of unspecified cerebral artery; E03.9 Hypothyroidism, unspecified; C44.42 Squamous cell carcinoma of skin of scalp and neck
CPT/HCPCS: 80061; 84443